=== PATIENT | male | born 1955 | race Caucasian/White ===

== ENCOUNTER 2022-08-06 08:28 | Outpatient (OUT) | payer MEDICARE, OTHER, SELFPAY ==
[2022-08-06 09:02] LABS: Basophils Percent Auto 0.5 % (0.2-2.0); Eosinophils Absolute Auto 0.2 10^3/uL (0.0-0.7); Eosinophils Percent Auto 5.2 % (0.9-7.0); Hematocrit 39.7 % (42.0-54.0); Hemoglobin 13.1 g/dL (14.0-18.0); Immature Granulocytes Abs Auto 0.01 10^3/uL (0.00-0.03); Immature Granulocytes Pct Auto 0.2 % (0.0-0.5); Lymphocytes Absolute Auto 1.2 10^3/uL (1.2-3.8); Lymphocytes Percent Auto 29.1 % (20.5-60.0); Mean Corpuscular Volume 87.8 fL (80.0-94.0); Mean Platelet Volume 9.8 fL (9.5-13.5); Monocytes Absolute Auto 0.5 10^3/uL (0.3-0.8); Monocytes Percent Auto 11.7 % (1.7-12.0); Neutrophils Absolute Auto 2.3 10^3/uL (1.4-6.5); Neutrophils Percent Auto 53.3 % (43.0-75.0); Platelet Count 194 10^3/uL (150-450); Red Blood Count 4.52 10^6/uL (4.70-6.10); Red Cell Distribution Width 12.9 % (11.0-15.0); White Blood Count 4.3 10^3/uL (4.0-11.0)
[2022-08-06 10:17] LABS: Alanine Aminotransferase 23 U/L (16-63); Albumin Globulin Ratio 1.1; Albumin Level 3.7 g/dL (3.4-5.0); Alkaline Phosphatase 94 U/L (46-116); Anion Gap 10.4; Aspartate Amino Transferase 22 U/L (15-37); BUN Creatinine Ratio 16.9; Bilirubin Total 0.5 mg/dL (0.2-1.0); Calcium 8.8 mg/dL (8.5-10.1); Chloride 106 mmol/L (98-107); Estimated GFR (African America >60 (>=60); Estimated GFR (Non-African Ame 55 (>=60); Globulin 3.5 g/dL; Glucose 102 mg/dL (74-106); Potassium 4.4 mmol/L (3.5-5.1); Sodium 142 mmol/L (136-145); Total Protein 7.2 g/dL (6.4-8.2)
[2022-08-06 10:24] LABS: Chol HDL Ratio 2.9; Cholesterol 192 mg/dL (<=200); HDL Cholesterol 67 mg/dL (40-60); Thyroid Stimulating Hormone 4.943 uIU/mL (0.358-3.740); Triglycerides 71 mg/dL (<=150); VLDL CHOLESTEROL 14.2 mg/dL
[2022-08-06 10:46] LABS: Prostate Specific Antigen Dx 2.43 ng/mL (<=4.00)
== END 2022-08-06 08:29 | disposition home or self-care (01) ==
LOC: LAB 08:34
PROVIDERS: PCP Family Medicine; Visit Provider Family Medicine
DX: E03.9 Hypothyroidism, unspecified (principal); E78.5 Hyperlipidemia, unspecified; N40.0 Benign prostatic hyperplasia without lower urinary tract symptoms
CPT/HCPCS: 36415; 80053; 80061; 84153; 84436; 84443; 85025

== ENCOUNTER 2023-08-05 09:17 | Outpatient (OUT) | payer MEDICARE, OTHER, SELFPAY ==
[2023-08-05 09:43] LABS: Basophils Percent Auto 0.7 % (0.2-2.0); Eosinophils Absolute Auto 0.2 10^3/uL (0.0-0.7); Eosinophils Percent Auto 3.6 % (0.9-7.0); Hematocrit 41.7 % (42.0-54.0); Hemoglobin 13.1 g/dL (14.0-18.0); Lymphocytes Absolute Auto 1.2 10^3/uL (1.2-3.8); Mean Corpuscular HGB Conc 31.4 g/dL (29.9-35.2); Mean Corpuscular Hemoglobin 28.1 pg (25.9-34.0); Mean Corpuscular Volume 89.5 fL (80.0-94.0); Mean Platelet Volume 9.8 fL (9.5-13.5); Monocytes Absolute Auto 0.5 10^3/uL (0.3-0.8); Monocytes Percent Auto 11.3 % (1.7-12.0); Neutrophils Absolute Auto 2.3 10^3/uL (1.4-6.5); Neutrophils Percent Auto 55.4 % (43.0-75.0); Platelet Count 200 10^3/uL (150-450); Red Blood Count 4.66 10^6/uL (4.70-6.10); White Blood Count 4.2 10^3/uL (4.0-11.0)
[2023-08-05 10:48] LABS: Alanine Aminotransferase 30 U/L (16-63); Albumin Level 3.6 g/dL (3.4-5.0); Alkaline Phosphatase 91 U/L (46-116); Anion Gap 11.4; Aspartate Amino Transferase 25 U/L (15-37); BUN Creatinine Ratio 18.9; Bilirubin Total 0.6 mg/dL (0.2-1.0); Calcium 8.3 mg/dL (8.5-10.1); Chloride 106 mmol/L (98-107); Chol HDL Ratio 2.9; Cholesterol 212 mg/dL (<=200); Estimated GFR (African America >60 (>=60); Estimated GFR (Non-African Ame 59 (>=60); Globulin 3.5 g/dL; Glucose 101 mg/dL (74-106); HDL Cholesterol 74 mg/dL (40-60); Potassium 4.4 mmol/L (3.5-5.1); Prostate Specific Antigen Scrn 2.64 ng/mL (<=4.00); Sodium 141 mmol/L (136-145); Thyroid Stimulating Hormone 4.759 uIU/mL (0.358-3.740); Total Protein 7.1 g/dL (6.4-8.2); Triglycerides 61 mg/dL (<=150); VLDL CHOLESTEROL 12.2 mg/dL
== END 2023-08-05 09:18 | disposition home or self-care (01) ==
PROVIDERS: PCP Family Medicine; Visit Provider Family Medicine
DX: E03.9 Hypothyroidism, unspecified (principal); E78.00 Pure hypercholesterolemia, unspecified; Z12.5 Encounter for screening for malignant neoplasm of prostate
CPT/HCPCS: 36415; 80053; 80061; 84439; 84443; 85025; G0103

== ENCOUNTER 2023-11-05 09:19 | Outpatient (OUT) | payer MEDICARE, OTHER, SELFPAY ==
--- OUTSIDE RECORDS SUMMARY | 2023-11-05 09:40 | XMS_ITS | CCD ---
Author Organization [facility] Care Team Providers Care Demand Planning Manager Name Role Phone Unavailable Primary Care Provider UnavailAreli Arteaga Unavailable KENNETH, DR CHOWDHURY Attending Unavailable GLYNDON, DR CHOWDHURY Consulting Unavailable GLYNDON, DR CHOWDHURY Primary Care Unavailable GLYNDON, DR CHOWDHURY Admitting Unavailable TASHA LANCASTER Primary Care Physician [phone] Jesse COVARRUBIAS Attending Unavailable Jesse COVARRUBIAS Attending Unavailable PRICILLA ABDULLAHI Attending Unavailable PRICILLA ABDULLAHI Referring Unavailable PRICILLA ABDULLAHI Attending Unavailable TASHA LANCASTER Referring Unavailable PRICILLA ABDULLAHI Attending Unavailable PRICILLA ABDULLAHI Referring Unavailable PRICILLA ABDULLAHI Attending Unavailable Jesse COVARRUBIAS Admitting Unavailable Jesse COVARRUBIAS Attending Unavailable Jesse COVARRUBIAS Referring Unavailable Allergies Allergy Classification Reported Allergen(s) Allergy Type Date of Onset Reaction(s) Facility Bumetanide (1 source) Bumetanide Drug Allergy 08-05-19 [facility] Furosemide (1 source) Furosemide Drug Allergy 08-05-19 [facility] Quinolones (antibiotic) (1 source) levoFLOXacin Drug Allergy 08-05-19 [facility] Spironolactone (1 source) Spironolactone Drug Allergy 08-05-19 [facility] (5 sources) Triamterene Drug Allergy 12-19-19 [facility] Work Phone: (1 source) Furosemide Drug Allergy Unknown [facility] Other (1 source) Bumetanide Drug Allergy 09-08-19 [facility] (1 source) Furosemide Drug Allergy 09-08-19 [facility] (1 source) Spironolactone Drug Allergy 09-08-19 [facility] (10 sources) hydroCHLOROthiazide / Triamterene; Translations: [hydrochlorothiazide-t riamterene] Drug Allergy Lethargy (finding) [facility] Medications Current Medications Medication Drug Class(es) Dates Sig (Normalized) Sig (Original) acetaminophen 325 mg / HYDROcodone bitartrate 5 mg oral tablet (3 sources) Opioid Agonist Start: 01-08-2023 take 1 tablet by mouth every six hours as needed for pain, then take 5 tablets by mouth every hour as needed for pain Blachly 325 mg-5 mg oral tablet 1 tab(s), Oral, q6hr as needed for pain, 5 tab(s), Refill(s) 0, Take 1 hour prior to procedure., [id number], 185, cm, 01/08/23 8:46:00 EST, Height/Length Dosing, 89.5, kg, 01/08/23 8:46:00 EST, Weight Dosing Start Date: 01/08/23 Status: Ordered Aspirin (16 sources) Platelet Aggregation Inhibitor, Nonsteroidal Anti-inflammatory Drug Start: 12-22-2022 aspirin Refills(s) 0 Start Date: 12/22/22 Status: Ordered Start: 09-08-2019 take 1 tablet by benigno th once daily Aspirin (Aspir-81) 81 mg Tablet,Delayed Release (Dr/Ec) Active 81 MG PO Daily September 08, 2019 12:00am take 1 tablet by benigno th once daily Aspirin 81 81 MG 1 tablet Orally Once a day Active aspirin 81 MG Ch ew Tab take 81 mg by mouth daily.. 0 Active ciprofloxacin 500 mg oral tablet (4 sources) Quinolone Antimicrobial Start: 01-08-2023 End: 01-11-2023 take 1 tablet by mouth twice daily Cipro 500 mg Tab 500 mg = 1 tab(s), Oral, BID, Start the day prior to procedure., X 3 day(s), # 6 tab(s), Refills(s) 0, Pharmacy: [id number], 185, cm, 01/08/23 8:46:00 EST, Height/Length Dosing, 89.5, kg, 01/08/23 8:46:00 EST, Weight Dosing Start Date: 01/08/23 Stop Date: 01/11/23 Status: Ordered Start: 12-23-2022 Cipro 500 mg T ab See Instructions, Take 1 tab day prior to procedure and 1 tab day of procdure - afterwards, # 2 tab(s), Refills(s) 0, Pharmacy: [id number], 185, cm, 12/22/22 13:39:00 EST, Height/Length Dosing, 89.5, kg, 12/22/22 13:39:00 EST, Weight Dosing Start Date: 12/23/22 Status: Ordered diazePAM 10 mg oral tablet (3 sources) Benzodiazepine Start: 01-08-2023 Valium 10 mg Tab 10 mg = 1 tab(s), Oral, Once, Take 30 minutes prior to procedure, # 1 tab(s), Refills(s) 0, Pharmacy: [id number], 185, cm, 01/08/23 8:46:00 EST, Height/Length Dosing, 89.5, kg, 01/08/23 8:46:00 EST, Weight Dosing Start Date: 01/08/23 Status: Ordered hydroCHLOROthiazide 12.5 mg oral tablet (5 sources) Thiazide Diuretic Start: 03-31-2018 take 1 tablet by mouth once daily hydroCHLOROthiazide 12.5 MG tablet Indications: Meniere's disease of left ear Take 1 tablet by mouth daily. 90 tablet 3 03/31/2018 Active Start: 03-21-2018 End: 03-31-2018 take 1 tablet by mouth once daily hydroCHLOROthiazide 12.5 MG tablet Indications: Meniere's disease of left ear Take 1 tablet by mouth daily. 30 tablet 0 03/21/2018 03/31/2018 Discontinued Start: 05-11-2017 End: 03-21-2018 take 1 tablet by mouth once daily hydroCHLOROthiazide 12.5 MG tablet Indications: Meniere's disease of left ear Take 1 tablet by mouth daily. 90 tablet 3 05/11/2017 03/21/2018 Discontinued levothyroxine sodium 0.05 mg oral tablet (16 sources) l-Thyroxine Start: 12-16-2022 Synthroid 50 m cg Tab 90 tab(s), 0 Refill(s), Refills(s) 0 Start Date: 12/16/22 Status: Ordered Start: 09-08-2019 take 1 tablet by benigno th once daily Levothyroxine (Synthroid) 50 mcg Tablet Active 50 MCG PO Daily September 08, 2019 12:00am take 1 tablet by benigno th once daily in the morning Levothyroxine Sodium 50 MCG 1 tablet in the morning on an empty stomach Orally Once a day Active levothyroxine 50 MCG Tab take 50 mcg by mouth daily.. 0 Active magnesium oxide 250 mg oral tablet (9 sources) Start: 12-22-2022 take 1 mg by mouth once daily magnesium oxide 250 mg oral tablet mg tab(s), Oral, Daily, Refills(s) 0 Start Date: 12/22/22 Status: Ordered Medrol Dose Pack as directed (1 source) Start: 11-05-2020 Medrol Dose Pa ck as directed as directed orally as directed Oct, Active naproxen sodium 220 mg oral capsule (2 sources) Nonsteroidal Anti-inflammatory Drug Start: 08-04-2023 take 1 capsule by mouth every twelve hours at mealtime as needed Naproxen Sodium (Aleve) 220 mg capsule Active 220 MG PO Every 12 hours August 04, 2023 12:00am FreeTextSi capsule with food or milk as needed Orally every 12 hrs; Note: Source Status: Taking; Provider: Raffaele Cordova ( ) take 1 capsule by mouth every tw elve hours Aleve 220 MG 1 capsule with food or milk as needed Orally every 12 hrs Active oxybutynin chloride 5 mg oral tablet (3 sources) Cholinergic Muscarinic Antagonist Start: 01-08-2023 take 1 tablet by mouth twice daily as needed oxybutynin 5 mg Tab 5 mg = 1 tab(s), Oral, BID, PRN for urinary discomfort, # 60 tab(s), Refills(s) 0, Pharmacy: [id number], 185, cm, 01/08/23 8:46:00 EST, Height/Length Dosing, 89.5, kg, 01/08/23 8:46:00 EST, Weight Dosing Start Date: 01/08/23 Status: Ordered rosuvastatin calcium 5 mg oral tablet (16 sources) HMG-CoA Reductase Inhibitor Start: 09-08-2019 rosuvastatin 5 mg Tab 90 tab(s), 0 Refill(s), Refills(s) 0 Start Date: 12/16/22 Status: Ordered [place] (1 source) [place] Act kathe [place] (5 sources) Start: 08-04-2023 take 160 mg by mouth twice daily [place] Active 160 MG PO Twice daily August 04, 2023 12:00am give with meal/snack Start: 12-22-2022 saw palmetto O ral, Refill(s) 0 Start Date: 12/22/22 Status: Ordered tamsulosin hydrochloride 0.4 mg oral capsule (10 sources) alpha-Adrenergic Karin Start: 08-04-2023 take 1 capsule by mouth once daily Tamsulosin Active 1 CAP PO Daily August 04, 2023 12:00am FreeTextSi capsule Orally Once a day; Note: Source Status: Taking; Provider: Raffaele Cordova ( ) Start: 12-16-2022 tamsulosin 0.4 mg Cap 90 cap(s), 0 Refill(s), Refills(s) 0 Start Date: 12/16/22 Status: Ordered take 1 capsule by [facility] every twenty-four hours Flomax 0.4 MG 1 capsule Orally Once a day Active Turmeric extract (10 sources) Start: 08-04-2023 Turmeric Activ e MG PO August 04, 2023 12:00am Start: 12-22-2022 Turmeric Oral, Daily, Refill(s) 0 Start Date: 12/22/22 Status: Ordered Vitamin D3 (9 sources) Start: 12-22-2022 Vitamin D3 Ref ills(s) 0 Start Date: 12/22/22 Status: Ordered Completed/Discontinued Medications Medication Drug Class(es) Dates Sig (Normalized) Sig (Original) cholecalciferol 0.025 mg oral capsule (7 sources) Vitamin D Start: 08-04-2023 End: 08-05-2023 take 25 ug by mouth once daily Cholecalciferol (Vitamin D3) Discontinued 25 MCG PO Daily August 04, 2023 12:00am August 05, 2023 8:35am take 1 tablet by benigno every twenty-four hours Vitamin D 25 MCG (1000 UT) 1 tablet Oral ly Once a day Active Cholecalciferol (VITAMIN D) 2000 UNITS Tab take by mouth.. 0 Active Problems Active Problems Problem Classification Problem Date Documented Date Episodic/Chronic Cardiac dysrhythmias (11 sources) Atrial fibrillation; Translations: [Unspecified atrial fibrillation] 12-22-2022 Chronic Cardiac dysrhythmias (1 source) Sinus bradycardia; Translations: [Bradycardia, unspecified] 09-09-2019 Episodic Conditions associated with dizziness or vertigo (16 sources) Meniere's disease; Translations: [Meniere's disease of left ear] Onset: 12-24-2015 12-24-2015 Chronic Disorders of lipid metabolism (12 sources) Hypercholesterolemia; Translations: [Pure hypercholesterolemia, unspecified] 12-16-2022 Chronic Essential hypertension (1 source) Essential (primary) hypertension; Translations: [ESSENTIAL PRIMARY HYPERTENSION] Onset: 08-15-2021 Chronic Hyperplasia of prostate (14 sources) Benign prostatic hyperplasia without lower urinary tract symptoms; Translations: [Benign prostatic hypertrophy with outflow obstruction] Onset: 08-15-2021 Chronic Osteoarthritis (13 sources) Osteoarthritis of joint of left hand; Translations: [Primary osteoarthritis, left hand] Onset: 12-17-2020 Resolved: 12-17-2020 Chronic Other diseases of kidney and ureters (1 source) Urinary tract obstruction; Translations: [Other obstructive and reflux uropathy] Onset: 02-11-2023 Episodic Other ear and sense organ disorders (5 sources) Asymmetrical hearing loss; Translations: [Asymmetrical hearing loss of left ear] Onset: 12-24-2015 12-24-2015 Chronic Other ear and sense organ disorders (9 sources) Deafness of left ear 12-16-2022 Chronic Other screening for suspected conditions (not mental disorders or infectious disease) (7 sources) Encounter for screening for malignant neoplasm of prostate; Translations: [Screening for malignant neoplasm done] Onset: 12-22-2022 Episodic Thyroid disorders (15 sources) Hypothyroidism, unspecified; Translations: [Hypothyroidism] Onset: 08-12-2021 Chronic Unclassified (18 sources) Patient encounter status 12-22-2022 Past or Other Problems Problem Classification Problem Date Documented Da te Episodic/Chronic Other connective tissue disease (1 source) Dupuytren's contracture; Translations: [Palmar fascial fibromatosis [Dupuytren]] Episodic Other connective tissue disease (1 source) Dupuytren's disease of palm; Translations: [Palmar fascial fibromatosis [Dupuytren]] Episodic Other connective tissue disease (1 source) Palmar fascial fibromatosis [Dupuytren] Onset: 12-17-2020 Resolved: 12-17-2020 Episodic Results Test Name Value Interpretation Reference Range Facility Ambulatory Visit Summaryon 0 02-16-2023 Ambulatory Visit Summary FLORI WALLER :1955 Visit Date:02/16/2023 Ambulatory Visit Instructions Your Diagnosis BPH with obstruction/lower urinary tract symptoms Prostate cancer screening Tests Performed Urnls Dip Stick Auto w/o Microscopy POC [id number] Your Care Team Attending Physician - PRICILLA ABDULLAHI PA-C Primary Care Physician - TASHA LANCASTER MD Referring Physician - PRICILLA ABDULLAHI PA-C This Is Your Medications List Contact prescribing physician if questions or concerns Turmeric aspirin cholecalciferol (Vitamin D3) levothyroxine (Synthroid 50 mcg Tab) magnesium oxide (magnesium oxide 250 mg oral tablet) rosuvastatin (rosuvastatin 5 mg Tab) tamsulosin (tamsulosin 0.4 mg Cap) [Image Removed: STOP]Stop taking these medications acetaminophen-hydrocodon e (Blachly 325 mg-5 mg oral tablet) ciprofloxacin (Cipro 500 mg Tab) diazepam (Valium 10 mg Tab) oxybutynin (oxybutynin 5 mg Tab) saw amara Procedures Performed Cystoscopy (01/08/2023), Arthroscopy of knee, Arthroscopy of shoulder, Colonoscopy, Tonsillectomy, TRUS - Transrectal ultrasonography. Discharge Vitals Heart Rate (Peripheral) 82 Blood Pressure 118/78 Height 185 cm Height 73 in Weight 89.5 kg Weight 196.9 lb BMI 26.15 What to do next Scheduled Follow-Up Appointments Wednesday 2:00 PM EST With: PRICILLA ABDULLAHI PA-C Where: [facility] Patient Educationon 02-16-19 Patient Education Urology Benign Prostatic Hyperplasia Benign prostatic hyperplasia (BPH) is an enlarged prostate gland that is caused by the normal aging process. The prostate may get bigger as a man gets older. The condition is not caused by cancer. The prostate is a walnut-sized gland that is involved in the production of semen. It is located in front of the rectum and below the bladder. The bladder stores urine. The urethra carries stored urine out of the body. An enlarged prostate can press on the urethra. This can make it harder to pass urine. The buildup of urine in the bladder can cause infection. Back pressure and infection may progress to bladder damage and kidney (renal) failure. What are the causes? This condition is part of the normal aging process. However, not all men develop problems from this condition. If the prostate enlarges away from the urethra, urine flow will not be blocked. If it enlarges toward the urethra and compresses it, there will be problems passing urine. What increases the risk? This condition is more likely to develop in men older than 50 years. What are the signs or symptoms? Symptoms of this condition include: ? Getting up often during the night to urinate. ? Needing to urinate frequently during the day. ? Difficulty starting urine flow. ? Decrease in size and strength of your urine stream. ? Leaking (dribbling) after urinating. ? Inability to pass urine. This needs immediate treatment. ? Inability to completely empty your bladder. ? Pain when you pass urine. This is more common if there is also an infection. ? Urinary tract infection (UTI). How is this diagnosed? This condition is diagnosed based on your medical history, a physical exam, and your symptoms. Tests will also be done, such as: ? A post-void bladder scan. This measures any amount of urine that may remain in your bladder after you finish urinating. ? A digital rectal exam. In a rectal exam, your health care provider checks your prostate by putting a lubricated, gloved finger into your rectum to feel the back of your prostate gland. This exam detects the size of your gland and any abnormal lumps or growths. ? An exam of your urine (urinalysis). ? A prostate specific antigen (PSA) screening. This is a blood test used to screen for prostate cancer. ? An ultrasound. This test uses sound waves to electronically produce a picture of your prostate gland. Your health care provider may refer you to a specialist in kidney and prostate diseases (urologist). How is this treated? Once symptoms begin, your health care provider will monitor your condition (active surveillance or watchful waiting). Treatment for this condition will depend on the severity of your condition. Treatment may include: ? Observation and yearly exams. This may be the only treatment needed if your condition and symptoms are mild. ? Medicines to relieve your symptoms, including: ? Medicines to shrink the prostate. ? Medicines to relax the muscle of the prostate. ? Surgery in severe cases. Surgery may include: ? Prostatectomy. In this procedure, the prostate tissue is removed completely through an open incision or with a laparoscope or robotics. ? Transurethral resection of the prostate (TURP). In this procedure, a tool is inserted through the opening at the tip of the penis (urethra). It is used to cut away tissue of the inner core of the prostate. The pieces are removed through the same opening of the penis. This removes the blockage. ? Transurethral incision (TUIP). In this procedure, small cuts are made in the prostate. This lessens the prostate's pressure on the urethra. ? Transurethral microwave thermotherapy (TUMT). This procedure uses microwaves to create heat. The heat destroys and removes a small amount of prostate tissue. ? Transurethral needle ablation (TUNA). This procedure uses radio frequencies to destroy and remove a small amount of prostate tissue. ? Interstitial laser coagulation (ILC). This procedure uses a laser to destroy and remove a small amount of prostate tissue. ? Transurethral electrovaporization (TUVP). This procedure uses electrodes to destroy and remove a small amount of prostate tissue. ? Prostatic urethral lift. This procedure inserts an implant to push the lobes of the prostate away from the urethra. Follow these instructions at home: ? Take dbof-aqt-pptfkvu and prescription medicines only as told by your health care provider. ? Monitor your symptoms for any changes. Contact your health care provider with any changes. ? Avoid drinking large amounts of liquid before going to bed or out in public. ? Avoid or reduce how much caffeine or alcohol you drink. ? Give yourself time when you urinate. ? Keep all follow-up visits. This is important. Contact a health care provider if: ? You have unexplained back pain. ? Your symptoms do not get better with treatment. ? You develop side effects from the medicine (more content not included)... Normal [facility] Urology Office/Clinic Noteon 02-16-2023 Urology Office/Clinic Note Chief Complaint S/p to Cysto HPI Staff S/p [place] [facility]- Previous DX; BPH, Taking Flomax 0.4 mg qd PVR (27) Prostate cancer screening PSA 07/25/20 - 2.02 08/12/21 - 2.00 08/06/22 - 2.43 ([place] was removed on 02/12/23 in our office) [place] was plugged up after a couple hours, forced his urination around the [place] Oxybutynin- BID He took one this morning, he doesn't know if he should still take it because he is not having the urinary distress Flomax 0.4 mg qd still taking IPSS 18 CAROL 22 PVR 71 Dysuria: denies Incomplete bladder emptying: denies Hematuria: had blood since procedure, it has a pinkish tint for the last couple days Urgency: denies Nocturia: (cuts fluids off at 6p.m) 2-3x nightly still getting up Stream: start stop stream, denies hesitation Leaking: denies Post void dripping: sometimes Wearing pads/ Depends: wears pad still a pinkish tinge to it today, it has has let up a since procedure Urge incontinence: denies Stress incontinence: denies Incontinence without Sensory Awareness: denies Abdominal pain: denies Flank pain: denies Sexual complaints: denies History of Present Illness staff HPI reviewed and agree. Review of Systems PHQ Score Initial Depression Screen Score: 0 SCORE no fever, chills, malaise, myalgia. no rash/lesions. no chest pain, palpitations, or SOB. no abdominal pain, nausea, vomiting. no unilateral calf swelling, redness, pain Physical Exam Vitals & Measurements HR: 82(Peripheral) BP: 118/78 HT: 73 in HT: 185 cm WT: 89.5 kg WT: 196.9 lb BMI: 26.15 General: nontoxic, NAD Mouth: moist mucosa Lungs: normal respiratory effort Cardio: regular rate, good distal perfusion Abdomen: nondistended, no suprapubic distention or tenderness, no CVA tenderness Neurologic: Grossly normal Skin: No rashes or suspicious lesions Assessment/Plan Dr. Covarrubias pt CAROL 22. 1. BPH with obstruction/lower urinary tract symptoms (N40.1: Benign prostatic hyperplasia with lower urinary tract symptoms) S/p Cysto/TRUS 01/08/23 - prostate volume 17.4cc. S/p Urolift 02/11/23. Catheter removal IO 02/12/23. Reports he had trouble with the [place] emptying him well. Was taking Oxybutynin. Advised pt he no longer needs to take this. IPSS 18 (18). [place] he never emptied prior to procedure. Was getting up 3-4x/night, which has improved since Urolift. PVR today 71cc. Taking Tamsulosin 0.4mg qd per PCP. Also takes saw palmetto. UA today shows large blood and small leuks. Has had minimal gross hematuria. Advised pt this is normal PO. States is mostly satisfied with Urolift results so far. Discussed postop details and possible next steps. -D/c Oxybutynin -D/c saw palmetto in the next few weeks as long as sx continue to improve -Cont Tamsulosin, will discuss weaning off of this at next appt 2. Prostate cancer screening (Z12.5: Encounter for screening for malignant neoplasm of prostate) PSA 09/21/19 - 1.55 07/25/20 - 2.02 08/12/21 - 2.00 08/06/22 - 2.43 -PCP monitors. Follow-up With When Contact Information BRADLY THOMPSON, PRICILLA Nix, URL [address] [place] [place] [address] [id number] Additional Instructions: 6 wks Patient Education Benign Prostatic Hyperplasia Documentation recorded by the consuelo Hickman accurately reflects the services(s) I performed and decisions made by me. Authenticated by Pricilla Abdullahi PA-C on 02/16/2023 16:27:50. IDayami, personally scribed for Pricilla Abdullahi PA-C on 02/16/2023 15:44:18. . Problem List/Past Medical History Ongoing A-fib Arthritis BPH with obstruction/lower urinary tract symptoms Deafness in left ear Hypercholesterolemia Hypothyroid Menieres disease Prostate cancer screening Historical Screening PSA (prostate specific antigen) Procedure/Surgical History Cystoscopy (01/08/2023), Arthroscopy of knee, Arthroscopy of shoulder, Colonoscopy, Tonsillectomy, TRUS - Transrectal ultrasonography. Medications aspirin Cipro 500 mg Tab, See Instructions, Not taking magnesium oxide 250 mg oral tablet, Oral, Daily Blachly 325 mg-5 mg oral tablet, 1 tab(s), Oral, q6hr, PRN, Not taking oxybutynin 5 mg Tab, 5 mg= 1 tab(s), Oral, BID, PRN rosuvastatin 5 mg Tab saw palmetto, Oral Synthroid 50 mcg Tab tamsulosin 0.4 mg Cap Turmeric, Oral, Daily Valium 10 mg Tab, 10 mg= 1 tab(s), Oral, Once, Not taking Vitamin D3 Allergies Dyazide (Lethargy) Social History Tobacco Never (less than 100 in lifetime) Tobacco Use:. Never Smokeless Tobacco Use:. Household tobacco concerns: No. Yes, 02/16/2023 Family History Bladder cancer: Father. Immunizations Vaccine Date Status SARS-CoV-2 (COVID-19) mRNA BNT-162b2 vax 05/22/2020 Recorded SARS-CoV-2 (COVID-19) mRNA BNT-162b2 vax 05/01/2020 Recorded Lab Results Ambulatory Point of Care Results Bilirubin Urine Dipstick: Negative (02/16/23 14:55:00) Blood Urin (more content not included)... [place] Comment on above: Result Comment: Elec tronically Signed By: PRICILLA ABDULLAHI PA-C\.br\Date and Time Signed: 02/16/23 16:27 EST\.br\Electronically Co-Signed By: Dayami Hickman\.br\Date and Time Co-Signed: 02/16/23 15:49 EST Consent for Procedure/Surger yon 02-11-2023 Consent for Procedure/Surgery [id number] FF [place] Consent for Treatmenton 01-16 Consent for Treatment [id number] F [place] Inpatient Patient Summaryon 02-11-2023 Inpatient Patient Summary [place] [id number] Clinical Summary Person Information Name: FLORI WALLER Age: 67 Years : 1955 Sex: Male PCP: TASHA LANCASTER MD Marital Status: Race: White Ethnicity: Non- or Language: [place]orese Visit Id: Visit Reason: BPH WITH LUTS Speciality: Acuity: Enc Type: Outpatient Med Service: Surgery Arrival: 02/11/2023 08:42:26 Discharge: Dispo Type: Address: [address] [facility] [id number] Provider Notes: Diagnosis: Other obstructive and reflux uropathy Problems Active Prostate cancer screening BPH with obstruction/lower urinary tract symptoms Hypothyroid A-fib Arthritis Deafness in left ear Menieres disease Hypercholesterolemia Smoking Status: Functional Status: Sensory Deficits: History of Falls: Mobility Assistance Prior to Admission: ADLs: Current Level of Assistance for Self-Care/Mobility: Cognitive Status: Allergies Dyazide (Lethargy) Laboratory or Other Results This Visit (last charted value for your 02/11/2023 visit) No Laboratory or Other Results This Visit Measurements: Height: 185 cm Weight: Blood Pressure: Not Valued / Not Valued BMI: Procedures No Procedures Documented Immunizations No Immunizations Documented This Visit Final Med List: acetaminophen-hydrocodon e (Blachly 325 mg-5 mg oral tablet) 1 Tablets By Mouth every 6 hours as needed as needed for pain. Take 1 hour prior to procedure.. Refills: 0. aspirin cholecalciferol (Vitamin D3) ciprofloxacin (Cipro 500 mg Tab) Take 1 tab day prior to procedure and 1 tab day of procdure - afterwards. Refills: 0. diazepam (Valium 10 mg Tab) 1 Tablets By Mouth Once. Take 30 minutes prior to procedure. Refills: 0. levothyroxine (Synthroid 50 mcg Tab) 90 tab(s), 0 Refill(s). magnesium oxide (magnesium oxide 250 mg oral tablet) By Mouth every day. oxybutynin (oxybutynin 5 mg Tab) 1 Tablets By Mouth 2 times a day as needed for urinary discomfort. Refills: 0. rosuvastatin (rosuvastatin 5 mg Tab) 90 tab(s), 0 Refill(s). saw palmetto By Mouth. tamsulosin (tamsulosin 0.4 mg Cap) 90 cap(s), 0 Refill(s). Turmeric By Mouth every day. Care Team Members: Attending Physician: Jesse COVARRUBIAS MD Consulting Physician: Referring Physician: Jesse COVARRUBIAS MD Follow up: With: Address: When: Jesse SATISH Jeremias HOYOS, [address], [facility] [address] [place] [address] Business (1) Within 1 to 2 weeks Comments: Call for followup appointment to remove the catheter. Stay on your Flomax (tamsulosin) for now. You may be seeing one of our nurse practitioners or physician assistants. Patient Education Information: Lue - Urolift Post-Op Instructions (Custom) [facility] IntraOperative Documentson 1 04-14-2022 IntraOperative Documents [id number] FF [facility] Main OR Intraoperative Recor don 02-11-2023 Main OR Intraoperative Record IntraOp Document Type FTURO Summary Primary Physician: Jesse COVARRUBIAS MD Finalized Date/Time: 02/11/23 09:48:09 Pt. Name: FLORI WALLER/Sex: 1955 Male Med Rec #: [id number] Physician: Jesse COVARRUBIAS MD Financial #: [id number] Pt. Type: O Room/Bed: / Admit/Disch: 02/11/23 08:42:26 - Institution: Case Times FTURO Entry 1 Patient Times In Room 02/11/23 09:07:00 Out Room 02/11/23 09:25:00 Procedure Times Start 02/11/23 09:10:00 Stop 02/11/23 09:21:00 Anesthesia Times Last Modified By: Aury GODINEZ, Renetta Valdez 02/11/23 09:21:24 General Comments: 18FR COUDE DE LA PAZ CATHETER TO LEG BAG INSERTED BY DR.COOK Nilton ULLOA,RN Case Attendance FTURO Entry 1 Entry 2 Entry 3 Case Attendee Jesse COVARRUBIAS MD, RN, Edison Bynum Role Performed Surgeon - Primary Mushroom Picker - Primary Scrub - Primary Time In 02/11/23 09:07:00 02/11/23 09:07:00 02/11/23 09:07:00 Time Out 02/11/23 09:25:00 02/11/23 09:25:00 02/11/23 09:25:00 Procedure CYSTOSCOPY LOCAL CYSTOSCOPY LOCAL CYSTOSCOPY LOCAL UROLIFT(.) UROLIFT(.) UROLIFT(.) Comments Last Modified By: Aury GODINEZ, Renetta Ulloa RN, Renetta Martinez RN 02/11/23 Gilda Valdez 02/11/23 Gilda P 02/11/23 09:21:28 09:21:28 09:21:28 Entry 4 Case Attendee Henrietta Ulloa CST Role Performed Scrub - Primary Time In 02/11/23 09:07:00 Time Out 02/11/23 09:25:00 Procedure CYSTOSCOPY LOCAL UROLIFT(.) Comments PRECEPTOR Last Modified By: Renetta Ulloa RN 02/11/23 09:21:28 Surgical Procedures FTURO Entry 1 Procedure Description Procedure CYSTOSCOPY LOCAL UROLIFT Modifiers . Surgeon Description CYSTOSCOPY LOCAL AND UROLIFT Primary Procedure Yes Primary Surgeon Jesse COVARRUBIAS MD Start 02/11/23 09:10:00 Stop 02/11/23 09:21:00 Anesthesia Type Local Surgical Service Urology Wound Class 2 - Clean-Contaminated Last Modified By: Renetta Ulloa RN 02/11/23 09:21:27 General Case Data FTURO Pre-Care Text: Classifies surgical wound, implements aseptic technique, initiates traffic control Entry 1 Case Information OR URO 1 FT Case Level None Wound Class 2 - Clean-Contaminated Specialty Urology Preop Diagnosis BPH WITH LUTS Postop Same As Preop Yes Postop Diagnosis BPH WITH LUTS Outcomes Met? Yes Last Modified By: Renetta Ulloa RN 02/11/23 08:49:25 Post-Care Text: The patient is free from signs and symptoms of infection EU IntraOp - FTURO Pre-Care Text: Implements protective measures prior to operative or invasive procedure, confirms identity before the operative or invasive procedure, verifies operative procedure, surgical site, and laterality Entry 1 EU Perioperative Protocols Procedure(s) CYSTOSCOPY LOCAL Patient Identity Birthday, ID Band UROLIFT(.) Verified (select at Check, Patient least 2): Participation Consents / H and P HandP, Surgery/Procedure Operative Site Present Verified Consent Marking Verified Surgical Site Yes Laterality Verified n/a Verified Procedure Verified Yes Correct Patient Yes Position Verified Availability Equipment, Implant, Time Out SATISH TIAN, Jesse Valdez, Verified (If Medication Participants Aury GODINEZ, Reentta Watt) Gilda Valdez, Edison Leong, Laila DOMÍNGUEZ, Henrietta Xiong Time Out Complete 02/11/23 09:08:00 Allergies Reviewed? Yes Allergies Reviewed Self/Patient With Body Position High Lithotomy Prep Area PENIS Prep Agents Betadine Solution Skin. Condition Unable to Visualize Description PARTIALLY CLOTHED Additional None Specimens Collected Vitals - EU Blood Pressure 151/86 Pulse 40 bpm Respirations 16 br/min SPO2 99 % IandO - EU Outcomes Met? Yes Last Modified By: Aury GODINEZ, Renetta Valdez 02/11/23 09:21:16 Post-Care Text: The patient is free from signs and symptoms of injury caused by extraneous objects Implant Log FTURO Pre-Care Text: Records devices implanted during the operative or invasive procedure Entry 1 Entry 2 Entry 3 Implant/Explant Implant Implant Implant Implant Identification Description UROLIFT 2 IMPLANT UROLIFT 2 IMPLANT UROLIFT 2 IMPLANT CARTRIDGE CARTRIDGE CARTRIDGE Serial Number Lot Number [id number] Medical Imaging Technologist NEOTRACT NEOTRACT NEOTRACT Catalog ?# [id number] UL2-C UL2-C Size Expiration Date 09/30/24 07/29/24 09/16/24 Usage Data Implant Site PROSTATE PROSTATE PROSTATE Quantity 1 1 4 Temperature Reconstitution Method Outcomes Met? Yes Yes Yes Last Modified By: Aury GODINEZ, Renetta Ulloa RN, Renetta Martinez RN 02/11/23 Gilda Valdez 02/11/23 Gilda Valdez 02/11/23 09:16:28 09:16:28 09:21:45 Post-Care Text: The patient is free from signs and symptoms of injury caused by extraneous objects Sign Out FTURO Entry 1 Before Patient Leaves OR Nurse verbally Yes Nurse verbally Yes confirms with the confirms with the team the name of team that the pro (more content not included)... [facility] Main OR Preoperative Recordo n 02-11-2023 Main OR Preoperative Record Holding Area Document Type FTURO Summary Primary Physician: Jesse COVARRUBIAS MD Finalized Date/Time: 02/11/23 08:52:30 Pt. Name: FLORI WALLER /Sex: 1955 Male Med Rec #: [id number] Physician: Jesse COVARRUBIAS MD Financial #: [id number] Pt. Type: O Room/Bed: / Admit/Disch: 02/11/23 08:42:26 - Institution: Case Times Holding FTURO Pre-Care Text: Verifies consent for planned procedure, identifies individual values and wishes concerning care, includes family members in perioperative teaching Secures patient's records' belongings, and valuables, maintains patient's dignity and privacy, and maintains patient confidentiality Entry 1 In Holding 02/11/23 08:47:00 Outcomes Met? Yes Last Modified By: Henrietta Childress RN 02/11/23 08:47:46 Post-Care Text: The patient participates in decisions affecting his or her perioperative plan of care The patient's right to privacy is maintained Surgery Checklist FTURO Entry 1 Patient Birthday, ID Band Procedure History and Physical, Identification: Check, Patient Verification: Surgical Consent, With Participation Patient NPO after Midnight: n/a Personal Items: Glasses, Jewelry Personal Items GLASSES; RING X 1; Limitations: UP AD MELANIE Comment: HEARING AIDE (LEFT EAR) Complaints of Pain: No Pain Comment: 0/10 Skin Integrity Dry, Warm Vitals - EU Blood Pressure 151/86 Pulse 40 bpm Respirations 16 br/min SPO2 99 % Additional None RN Reviewed Yes Specimens Collected Last Modified By: Henrietta Childress RN 02/11/23 08:52:26 Finalized By: Henrietta Childress RN Document Signatures Signed By: Henrietta Childress RN 02/11/23 08:52 [facility] Operative Reporton Operative Report Patient: EFRAIN WALLER Age: 67 years Sex: Male : 1955 Associated Diagnoses: None Author: Jesse COVARRUBIAS MD Procedure Operative Information Details: Date/ Time: 02/11/2023 09:27:00. Pre-Op Dx: BPH w/ LUTS - N40.1. Post-Op Dx: Same. Anesthesia Type: Local. Procedure: Cystoscopy with UroLift Prostatic Urethral Lift. Complications: None. Risks/Benefits/Informed Consent: Surgical risks, benefits, details of the procedure have been explained to the patient, Full informed consent has been obtained. Indications: This patient has bladder outlet obstructive symptoms refractory to medications, wishes to no longer take medications, He is strongly desirous to try the Urolift procedure. Intraoperative Information Prepped: Patient received 1 hour prior to procedure (10 mg diazepam, 5/325 mg of Blachly), Local Anesthesia (60cc 2% Xylocaine liquid inserted into bladder, 20cc Xylocaine 2% jelly inserted into urethra, Penile clamp applied for 20 min dwell prior to procedure with patient in sitting position). Procedure: A 20F cystoscope was inserted into the bladder, The cystoscopy bridge was replaced with a UroLift delivery device, The first treatment site was the patient's left side approximately 1.5 cm distal to the bladder neck, The distal tip of the delivery device was then angled laterally approximately 20 degrees at this position to compress the lateral lobe, The trigger was pulled, thereby deploying a needle containing the implant through the prostate, The needle was then retracted, allowing one end of the implant to be delivered to the capsular surface of the prostate, The implant was then tensioned to assure capsular seating and removal of slack monofilament, The device was then angled back toward midline and slowly advanced proximally (typically 3-4mm) until cystoscopic verification of the monofilament being centered in the delivery bay, The urethral end piece was then affixed to the monofilament thereby tailoring the size of the implant, Excess filament was then severed, The delivery device was then readvanced into the bladder, The delivery device was then replaced with cystoscope and bridge and the implant location and opening effect was confirmed cystoscopically, The same procedure was then repeated on the right side, Two additional implants were delivered just proximal to the veru montanum, again one on right and one on left side of the prostate, following the same technique, Cystoscopy then revealed a persistent area of obstruction, and two more implants were delivered in the mid prostate, A final cystoscopy was conducted first to inspect the location and state of each implant, And second, to confirm the presence of a continuous anterior channel was present through the prostatic urethra with irrigation flow turned off, The bladder was then filled with 150cc irrigation fluid to assist the patient in void trial after the procedure, All instruments were removed, The patient was then allowed to sit up. Specimens Removed: None. Devices Implanted: 6 Urolift devices. Postoperative Information Discharge: The patient tolerated the procedure well and was subsequently discharged home, Voiding trial in progress at the time of this dictation. . [facility] Comment on above: Result Comment: Elec tronically Signed By: Jesse COVARRUBIAS MD\.br\Date and Time Signed: 02/11/23 09:28 EST Outpatient Surgery Discharge Instructionon 02-11-2023 Outpatient Surgery Discharge Instruction [address] [address] Patient Discharge Instructions PERSON INFORMATION Name: FLORI WALLER Date of : 1955 Current Date: 02/11/2023 09:52:05 PHYSICIANS Admitting Physician: Jesse COVARRUBIAS MD Comment: Discharge Diagnosis: Other obstructive and reflux uropathy FLORI WALLER has been given the following list of follow-up instructions, prescriptions, and patient education materials: IF UNABLE TO CONTACT YOUR PHYSICIAN AND YOU FEEL IT IS AN EMERGENCY, GO TO THE NEAREST EMERGENCY ROOM OR CALL 911 Follow up: With: Address: When: Jesse COVARRUBIAS [address] [place] [address], [address], [address] [address] Business (1) Within 1 to 2 weeks Comments: Call for followup appointment to remove the catheter. Stay on your Flomax (tamsulosin) for now. You may be seeing one of our nurse practitioners or physician assistants. Comment: PATIENT EDUCATION INFORMATION Instructions: [facility] [place], [place] Post-Operative Instructions for UroLift After your procedure it is normal to have: Gross Hematuria (blood in the urine) You may even notice blood clots in your urine. A small amount of blood may apppear to be a lot of blood in your urine as it is diluted. Restarting your blood thinner, increased activity and heavy lifting could increase the amount of bleeding. The bleeding may be sporadic (off and on) over the next 2-3 weeks. Ensure you are hydrating to assist in flushing the blood to prevent voiding complications. In the event you are unable to void, please reach out to our office. If the office is closed, you will need to report to the local emergency room. Blood in your semen and stool may be present. The blood in your semen is not harmful to you or your partner. This will resolve with time. Frequency/urgency/burnin g with urination is very common. This is due to irritation from your procedure. These symptoms do not indicate that your procedure was unsuccessful or that there is an infection. Ensure you are hydrating! You may try AZO over the counter as needed for urinary discomfort. Pain/discomfort are normal as well. There has been a non-narcotic prescription sent to your pharmacy. You may alternate this prescription with over the counter Ibuprofen. Your pain and discomfort should improve within a few days. When do I need to call the office? We ask that you reach out to the office if you experience a temperature of 100.4 ? F or higher, excessive urinary bleeding, symptoms of infection, inability to urinate or uncontrolled pain. If the office is closed, you may need to present to the local emergency department. De La Paz catheter If you have a catheter and will remove it at home, you may do so the next day if urine is clear and no longer red/pink in color. If urine is red, wait until clear to remove the catheter. See attached instructions for removal. Postop UroLift Instructions ? Complete your antibiotic as instructed. ? Remain on all your urinary medication until follow up. ? Take your pain madications and AZO as needed. ? Resume any blood thinners 48 hour post procedure. ? Continue to hydrate! ? Minimize your activity for 72-96 hours post procedure. ? If you are prescribed Oxybutynin for bladder spasms, you may take this medication every 8 hours as needed. This medication may cause dry mouth/eyes and constipation. Taking an over the counter stool softener and drinking plenty of water will help with side effects. De La Paz Catheter Removal De La Paz Catheter I did not place one after your procedure today. When to Call Your Healthcare Provider (or to to your local emergency department) Call the healthcare provider right away if: ? You have a fever of 100.4 ?F (38?C) or higher, or as directed by your healthcare provider. ? You have questions about removing the catheter. ? The catheter does not come out with gentle pulling. ? You cannot urinate within 8 hours of removing the catheter. ? Your belly (abdomen) is painful or bloated ? You have burning pain with urination that lasts for 24 hours. ? You see a lot of blood in your urine. Light bleeding for 24 hours is normal. ? It feels like the bladder is not emptying. CHRISTIN Pike JACK W, have received the attached patient education materials/instructions and have verbalized understanding: May we do a follow up call? Yes No I was present when discharge instructions were given Patient Signature Date Clinican/Nurse Signature Date You may receive a survey from [employer] asking you to rate your care experience. Your feedback is important and will help us understand what we do well and how we can improve the qual (more content not included)... [facility] Patient Educationon 02-12-20 23 Patient Education [facility] [place], [place] Post-Operative Instructions for UroLift After your procedure it is normal to have: Gross Hematuria (blood in the urine) You may even notice blood clots in your urine. A small amount of blood may apppear to be a lot of blood in your urine as it is diluted. Restarting your blood thinner, increased activity and heavy lifting could increase the amount of bleeding. The bleeding may be sporadic (off and on) over the next 2-3 weeks. Ensure you are hydrating to assist in flushing the blood to prevent voiding complications. In the event you are unable to void, please reach out to our office. If the office is closed, you will need to report to the local emergency room. Blood in your semen and stool may be present. The blood in your semen is not harmful to you or your partner. This will resolve with time. Frequency/urgency/burnin g with urination is very common. This is due to irritation from your procedure. These symptoms do not indicate that your procedure was unsuccessful or that there is an infection. Ensure you are hydrating! You may try AZO over the counter as needed for urinary discomfort. Pain/discomfort are normal as well. There has been a non-narcotic prescription sent to your pharmacy. You may alternate this prescription with over the counter Ibuprofen. Your pain and discomfort should improve within a few days. When do I need to call the office? We ask that you reach out to the office if you experience a temperature of 100.4 ? F or higher, excessive urinary bleeding, symptoms of infection, inability to urinate or uncontrolled pain. If the office is closed, you may need to present to the local emergency department. De La Paz catheter If you have a catheter and will remove it at home, you may do so the next day if urine is clear and no longer red/pink in color. If urine is red, wait until clear to remove the catheter. See attached instructions for removal. Postop UroLift Instructions ? Complete your antibiotic as instructed. ? Remain on all your urinary medication until follow up. ? Take your pain madications and AZO as needed. ? Resume any blood thinners 48 hour post procedure. ? Continue to hydrate! ? Minimize your activity for 72-96 hours post procedure. ? If you are prescribed Oxybutynin for bladder spasms, you may take this medication every 8 hours as needed. This medication may cause dry mouth/eyes and constipation. Taking an over the counter stool softener and drinking plenty of water will help with side effects. De La Paz Catheter Removal De La Paz Catheter I did not place one after your procedure today. When to Call Your Healthcare Provider (or to to your local emergency department) Call the healthcare provider right away if: ? You have a fever of 100.4 ?F (38?C) or higher, or as directed by your healthcare provider. ? You have questions about removing the catheter. ? The catheter does not come out with gentle pulling. ? You cannot urinate within 8 hours of removing the catheter. ? Your belly (abdomen) is painful or bloated ? You have burning pain with urination that lasts for 24 hours. ? You see a lot of blood in your urine. Light bleeding for 24 hours is normal. ? It feels like the bladder is not emptying. [facility] Consent for Procedure/Surger yon 01-11-2023 Consent for Procedure/Surgery [id number] F [facility] Ambulatory Visit Summaryon 1 03-10-2022 Ambulatory Visit Summary FLORI WALLER :1955 Visit Date:01/08/2023 Ambulatory Visit Instructions Your Diagnosis BPH with obstruction/lower urinary tract symptoms Prostate cancer screening Your Care Team Attending Physician - SATISH TIAN, Jesse Valdez Primary Care Physician - TASHA LANCASTER MD This Is Your Medications List Contact prescribing physician if questions or concerns Turmeric aspirin cholecalciferol (Vitamin D3) ciprofloxacin (Cipro 500 mg Tab) levothyroxine (Synthroid 50 mcg Tab) magnesium oxide (magnesium oxide 250 mg oral tablet) rosuvastatin (rosuvastatin 5 mg Tab) mary maloney tamsulosin (tamsulosin 0.4 mg Cap) Procedures Performed Cystoscopy (01/08/2023), Arthroscopy of knee, Arthroscopy of shoulder, Colonoscopy, Tonsillectomy, TRUS - Transrectal ultrasonography. Discharge Vitals Temperature (Temporal Artery) 36.4 ?C Heart Rate (Peripheral) 78 Blood Pressure 124/82 Height 185 cm Height 73 in Weight 89.5 kg Weight 196.9 lb BMI 26.15 What to do next You Need to Schedule the Following Appointments Follow Up with SATISH TIAN, Jesse Valdez, URL When: Comments: Sched UroLift Where: [address] [place] [id number]- Medications What How Much When Instructions Unchanged aspirin Contact prescribing physician if questions or concerns Unchanged cholecalciferol (Vitamin D3) Contact prescribing physician if questions or concerns Unchanged ciprofloxacin (Cipro 500 mg Tab) See instructions Take 1 tab day prior to procedure and 1 tab day of procdure - afterwards Contact prescribing physician if questions or concerns Unchanged levothyroxine (Synthroid 50 mcg Tab) 90 tab(s), 0 Refill(s) Contact prescribing physician if questions or concerns Unchanged magnesium oxide (magnesium oxide 250 mg oral tablet) By Mouth Every day Contact prescribing physician if questions or concerns Unchanged rosuvastatin (rosuvastatin 5 mg Tab) 90 tab(s), 0 Refill(s) Contact prescribing physician if questions or concerns Unchanged saw palmetto By Mouth Contact prescribing physician if questions or concerns Unchanged tamsulosin (tamsulosin 0.4 mg Cap) 90 cap(s), 0 Refill(s) Contact prescribing physician if questions or concerns Unchanged Turmeric By Mouth Every day Contact prescribing physician if questions or concerns Medications and Immunizations Administered Given lidocaine Top 2% Gel w/Appl 11 mL, 11 mL, Topical. For: BPH with obstruction/lower urinary tract symptoms Allergies Dyazide (Lethargy) Problems Ongoing - Any problem that you are currently receiving treatment for. A-fib Arthritis BPH with obstruction/lower urinary tract symptoms Deafness in left ear Hypercholesterolemia Hypothyroid Menieres disease Prostate cancer screening Historical - Any problem that you are no longer receiving treatment for. Screening PSA (prostate specific antigen) Patient Survey You may receive a survey via text or e-mail asking about your office visit. Please share your experience with us by completing your survey. We appreciate your feedback and thank you for choosing us for your care. [facility] Consenton 01-08-2023 Consent [id number] [facility] Urology Office/Clinic Noteon 01-08-2023 Urology Office/Clinic Note Chief Complaint Cysto HPI Staff Pt here for Cysto/TRUS ABX TAKEN History of Present Illness Tests reviewed: none. I have reviewed the previous health record information and history for this patient from Pricilla Abdullahi PA-C. I have reviewed and verified the staff HPI to be accurate for this encounter. There have been no associated fever, chills, flank pain, or blood in the urine. Denies any urinary infections since last encounter. Review of Systems PHQ Score Initial Depression Screen Score: 0 SCORE ROS - Provider Constitutional: denies weight loss, denies hot flashes. Eyes: denies eye problems. Gastrointestinal: denies nausea, denies vomiting. Cardiovascular: denies chest pain or angina. Integumentary: no dryness Musculoskeletal: denies musculoskeletal symptoms. ENMT: denies otolaryngeal symptoms. Respiratory: no shortness of breath. Heme/Lymph: denies easy bleeding tendency, denies easy bruising tendency. Psychiatric: no confusion, no anxiety. Genitourinary: See HPI. Physical Exam Vitals & Measurements T: 36.4 ?C(Temporal Artery) HR: 78(Peripheral) BP: 124/82 HT: 73 in HT: 185 cm WT: 89.5 kg WT: 196.9 lb BMI: 26.15 General Appearance: alert, no distress, well nourished, well developed male. Procedure Operative Information Anesthesia Type: Local Procedure: Local Cystoscopy and Transrectal Ultrasound Complications: None Surgical risks, benefits, details of the procedure have been explained to the patient. Full informed consent has been obtained. Intraoperative Information Prepped: Patient is brought back to the endoscopy suite. Patient is placed in supine and the modified left lateral Buckner position. Patient prepped in the usual fashion with Betadine solution. 2% Xylocaine Jelly is placed per Urethra. After waiting several minutes, the Cystoscope is introduced. The Urethra is: Normal The Prostatic Urethra is: 3.cm long, lateral lobe obstruction, no median lobe essentially no protrusion of the prostate into the bladder lumen. The Bladder: Normal, no tumors, no stones, Trabeculated: Moderate (2) The Ureteral orifices: Show efflux of clear urine Removal: Cystoscope is removed. The patient tolerated it well. Volume: 17.4 Postoperative Information The patient tolerated the procedure well and was discharged home in satisfactory condition. Patient is discharged home with antibiotic coverage. Follow up arranged. Radiology Report Procedure: Transrectal Ultrasound of the Prostate Narrative: Ultrasound probe is introduced and performed in the longitudinal and transverse plains. The prostatic capsule and seminal vesicles appear to be within normal limits. The gland measures: 39.7 MM Length, 41.4 MM Width, 20.2 MM Depth, with a calculated volume of 17.4 CC. The peripheral zone demonstrates: No abnormalities Rest of the prostate demonstrates: No abnormalities Assessment/Plan 1. BPH with obstruction/lower urinary tract symptoms (N40.1: Benign prostatic hyperplasia with lower urinary tract symptoms) IPSS 18, QoL 4. Has been taking Tamsulosin 0.4mg qd for a few years per PCP. Also takes saw palmetto. Does not feel either works well. Admits he would prefer not take an oral med. Voids 5-6x/night with regular fluid intake, otherwise 2-3x/night if he cuts off fluids at 6pm. PVR today 27cc. UA today negative for blood and infection. Pt had IO cysto/TRUS done today w/o complications. Follow up w/U[facility]ift. All questions/concerns were discussed. Pt to call the office if he encounters any issues prior. Pt acknowledges understanding. -Cont Tamsulosin and mary maloney. Will d/c in future. -Will schedule Urolift. The procedural risks, benefits, details, and treatment alternatives have been discussed with the patient. These include bleeding, infection, continued problems urinating, increased frequency with urgency during the healing process, painful urination, need for indwelling catheter after the procedure, and the need for additional procedures in the future, among others. The risk of penile erection problems and urinary leakage is less after this procedure than some others, but could still occur. Full informed consent has been obtained. Will order Local anesthesia. -Will send Cipro 500mg, Blachly 325mg, Valium 10mg and Oxybutynin 5mg to pharm on file. Discussed the medication side effects, and the patient will monitor closely for these, as well as for symptom improvement. If severe side effects occur, the medication should be stopped and the office notified. -Pt will need a [employer]dl company driver for the Valium 10mg. 2. Prostate cancer screening (Z12.5: Encounter for screening for malignant neoplasm of prostate) PSA 09/21/19 - 1.55 07/25/20 - 2.02 08/12/21 - 2.00 08/06/22 - 2.43 -PCP monitors. Overall this patient continues on the alpha blockers but still has significant urinary symptomatology. We discussed the results of his cystoscopy and the ultrasound today. His prostate volume is actually fairly small but he (more content not included)... Normal [facility] Comment on above: Result Comment: Elec tronically Signed By: Jesse COVARRUBIAS MD\.br\Date and Time Signed: 01/08/23 09:45 EST\.br\Electronically Co-Signed By: Verona Hector\.br\Date and Time Co-Signed: 01/08/23 09:41 EST Physician Referralon 023 Physician Referral [id number] FF Normal [facility] Screenson 12-23-2022 Screens [id number] F Normal [facility] CBC AUTO DIFFon 08-12-2021 BASO # 0.0 103/ul Normal 0.0-0.1 [facility] Comment on above: Performed By: #### C BC #### [facility] [address] [address] [address] Chucho Mayberry Basophils/100 WBC (Bld) 0.7 % Normal 0.2-2.0 [facility] Comment on above: Performed By: #### C BC #### [facility] [address] [address] [address] Chucho Mayberry EO # 0.2 103/ul Normal 0.0-0.7 [facility] Comment on above: Performed By: #### C BC #### [facility] [address] [address] [address] Chucho Mayberry Eosinophils/100 WBC (Bld) 5.0 % Normal 0.9-7.0 [facility] Comment on above: Performed By: #### C BC #### [facility] [address] [address] [address] Chucho Mayberry Erythrocyte distribution width (RBC) [Ratio] 13.2 % Normal 11.0-15.0 [facility] Comment on above: Performed By: #### C BC #### [facility] [address] [address] [address] Chucho Mayberry Hematocrit (Bld) [Volume fraction] 40.6 % Critically low 42.0-54.0 [facility] Comment on above: Performed By: #### C BC #### [facility] [address] [address] [address] Chucho Mayberry Hemoglobin (Bld) [Mass/Vol] 13.6 g/dL Critically low 14.0-18.0 [facility] Comment on above: Performed By: #### C BC #### [facility] [address] [address] [address] Chucho Mayberry IG # 0.01 10e3/ul Normal 0.00-0.03 [facility] Comment on above: Performed By: #### C BC #### [facility] [address] [place] [address] Dr. Chucho Mayberry IG % 0.2 % Normal 0.0-0.5 [facility] Comment on above: Performed By: #### C BC #### [facility] [address] [place] [address] Dr. Chucho Mayberry LYMPH # 1.1 103/ul Critically low 1.2-3.[address] [facility] Comment on above: Performed By: #### C BC #### [facility] [address] [place] [address] Dr. Chucho Mayberry Lymphocytes/100 WBC (Bld) 24.9 % Normal 20.5-60.0 [facility] Comment on above: Performed By: #### C BC #### [facility] [address] [place] [address] Dr. Chucho Mayberry MANUAL DIFF REQ NO Normal [facility] Comment on above: Performed By: #### C BC #### [facility] [address] [place] [address] Dr. Chucho Mayberry MCH (RBC) [Entitic mass] 31.1 pg Normal 25.9-34.0 [facility] Comment on above: Performed By: #### C BC #### [facility] [address] [place] [address] Dr. Chucho Mayberry MCHC (RBC) [Mass/Vol] 33.5 g/dL Normal 29.9-35.2 [facility] Comment on above: Performed By: #### C BC #### [facility] [address] [place] [address] Dr. Chucho Mayberry MCV (RBC) [Entitic vol] 92.9 fL Normal 80.0-94.0 [facility] Comment on above: Performed By: #### C BC #### [facility] [address] [place] [address] Dr. Chucho Mayberry MONO # 0.5 103/ul Normal 0.3-0.8 [facility] Comment on above: Performed By: #### C BC #### [facility] [address] [address] [address] Chucho Mayberry Monocytes/100 WBC (Bld) 10.2 % Normal 1.7-12.0 [facility] Comment on above: Performed By: #### C BC #### [facility] [address] [address] [address] Chucho Mayberry NEUT # 2.6 103/ul Normal 1.4-6.5 [facility] Comment on above: Performed By: #### C BC #### [facility] [address] [address] [address] Chucho Mayberry Neutrophils/100 WBC (Bld) 59.0 % Normal 43.0-75.0 [facility] Comment on above: Performed By: #### C BC #### [facility] [address] [place] [address] Dr. Chucho Mayberry Platelet mean volume (Bld) [Entitic vol] 11.0 fL Normal 9.5-13.5 [facility] Comment on above: Performed By: #### C BC #### [facility] [address] [place] [address] Dr. Chucho Mayberry PLT 177 103/ul Normal 150-450 [facility] Comment on above: Performed By: #### C BC #### [facility] [address] [place] [address] Dr. Chucho Mayberry RBC 4.37 106/ul Critically low 4.70-6.10 [facility] Comment on above: Performed By: #### C BC #### [facility] [address] [place] [address] Dr. Chucho Mayberry WBC 4.4 103/ul Normal 4.0-11.0 [facility] Comment on above: Performed By: #### C BC #### [facility] [address] [place] [address] Dr. Chucho Mayberry LIPID PROFILEon 08-12-2021 CHOL-HDL RATIO NORM SEE BELOW Normal [facility] Comment on above: Result Comment: 3.3 - 4.4 LOW RISK 4.4 - 7.1 AVERAGE RISK 7.1 - 11.0 MODERATE RISK >11.0 HIGH RISK Performed By: #### T SH, LIPID, T4, CMP #### [facility] [address] [place] [address] Dr. Chucho Mayberry Cholesterol [Mass/Vol] 187 mg/dL Normal <=200 [facility] Comment on above: Performed By: #### T SH, LIPID, T4, CMP #### [facility] [address] [place] [address] Dr. Chucho Mayberry Cholesterol in HDL [Mass/Vol] 69 mg/dL Critically high 40-60 [facility] Comment on above: Performed By: #### T SH, LIPID, T4, CMP #### [facility] [address] [place] [address] Dr. Chucho Mayberry Cholesterol in LDL [Mass/Vol] 107.4 mg/dL Normal [facility] Comment on above: Performed By: #### T SH, LIPID, T4, CMP #### [facility] [address] [place] [address] Dr. Chucho Mayberry Cholesterol.total/C holesterol in HDL [Mass ratio] 2.7 {ratio} Normal [facility] Comment on above: Performed By: #### T SH, LIPID, T4, CMP #### [facility] [address] [place] [address] Dr. Chucho Mayberry HDL NORMAL > or = 60 mg/dl - LO W CARDIOVASCULAR RISK <40 mg/dl - HIGH CARDIOVASCULAR RISK Normal [facility] Comment on above: Performed By: #### T SH, LIPID, T4, CMP #### [facility] [address] [place] [address] Dr. Chucho Mayberry LDL CALC NORMAL SEE BELOW Normal [facility] Comment on above: Result Comment: <100 mg/dl OPTIMAL 100 - 129 mg/dl NEAR OR ABOVE OPTIMAL 130 - 159 mg/dl BORDERLINE HIGH 160 - 189 mg/dl HIGH >190 mg/dl VERY HIGH Performed By: #### T SH, LIPID, T4, CMP #### [facility] [address] [place] [address] Dr. Chucho Mayberry Triglyceride [Mass/Vol] 53 mg/dL Normal <=150 [facility] Comment on above: Performed By: #### T SH, LIPID, T4, CMP #### [facility] [address] [address] [address] Chucho Mayberry VLDL CALC 10.6 mg/dL Normal [facility] Comment on above: Performed By: #### T SH, LIPID, T4, CMP #### [facility] [address] [address] [address] Chucho Mayberry PROF 14(COMP METB)on 022 Albumin [Mass/Vol] 3.8 g/dL Normal 3.4-5.0 [facility] Comment on above: Performed By: #### T SH, LIPID, T4, CMP #### [facility] [address] [place] [address] Dr. Chucho Mayberry Albumin/Globulin [Mass ratio] 1.1 {ratio} Normal [facility] Comment on above: Performed By: #### T SH, LIPID, T4, CMP #### [facility] [address] [place] [address] Dr. Chucho Mayberry ALP [Catalytic activity/Vol] 87 U/L Normal 46-116 [facility] Comment on above: Performed By: #### T SH, LIPID, T4, CMP #### [facility] [address] [place] [address] Dr. Chucho Mayberry ALT [Catalytic activity/Vol] 21 U/L Normal 16-63 [facility] Comment on above: Performed By: #### T SH, LIPID, T4, CMP #### [facility] [address] [place] [address] Dr. Chucho Mayberry Anion gap [Moles/Vol] 10.5 mmol/L Normal [facility] Comment on above: Performed By: #### T SH, LIPID, T4, CMP #### [facility] [address] [place] [address] Dr. Chucho Mayberry AST [Catalytic activity/Vol] 19 U/L Normal 15-37 [facility] Comment on above: Performed By: #### T SH, LIPID, T4, CMP #### [facility] [address] [address] [address] Chucho Mayberry Bilirubin [Mass/Vol] 0.8 mg/dL Normal 0.2-1.0 [facility] Comment on above: Performed By: #### T SH, LIPID, T4, CMP #### [facility] [address] [address] [address] Chucho Mayberry Calcium [Mass/Vol] 8.7 mg/dL Normal 8.5-10.1 [facility] Comment on above: Performed By: #### T SH, LIPID, T4, CMP #### [facility] [address] [address] [address] Chucho Mayberry Chloride [Moles/Vol] 106 mmol/L Normal 98-107 [facility] Comment on above: Performed By: #### T SH, LIPID, T4, CMP #### [facility] [address] [place] [address] Dr. Chucho aMyberry CO2 [Moles/Vol] 28.7 mmol/L Normal 21.0-32.0 [facility] Comment on above: Performed By: #### T SH, LIPID, T4, CMP #### [facility] [address] [address] [address] Chucho Mayberry Creatinine [Mass/Vol] 1.17 mg/dL Normal 0.70-1.30 [facility] Comment on above: Performed By: #### T SH, LIPID, T4, CMP #### [facility] [address] [place] [address] Dr. Chucho Mayberry EGFR-AF LAO >60 Normal >=60 [facility] Comment on above: Performed By: #### T SH, LIPID, T4, CMP #### [facility] [address] [place] [address] Dr. Chucho Mayberry EGFR-NON AF LAO >60 Normal >=60 [facility] Comment on above: Performed By: #### T SH, LIPID, T4, CMP #### [facility] [address] [place] [address] Dr. Chucho Mayberry Globulin (S) [Mass/Vol] 3.4 g/dL Normal [facility] Comment on above: Performed By: #### T SH, LIPID, T4, CMP #### [facility] [address] [address] [address] Chucho Mayberry Glucose [Mass/Vol] 91 mg/dL Normal 74-106 [facility] Comment on above: Performed By: #### T SH, LIPID, T4, CMP #### [facility] [address] [place] [address] Dr. Chucho Mayberry Potassium [Moles/Vol] 4.2 mmol/L Normal 3.5-5.1 [facility] Comment on above: Performed By: #### T SH, LIPID, T4, CMP #### [facility] [address] [address] [address] Chucho Mayberry Protein [Mass/Vol] 7.2 g/dL Normal 6.4-8.2 [facility] Comment on above: Performed By: #### T SH, LIPID, T4, CMP #### [facility] [address] [place] [address] Dr. Chucho Mayberry Sodium [Moles/Vol] 141 mmol/L Normal 136-145 [facility] Comment on above: Performed By: #### T SH, LIPID, T4, CMP #### [facility] [address] [place] [address] Dr. Chucho Mayberry Urea nitrogen [Mass/Vol] 21.0 mg/dL Critically high 7.0-18.0 [facility] Comment on above: Performed By: #### T SH, LIPID, T4, CMP #### [facility] [address] [place] [address] Dr. Chucho Mayberry Urea nitrogen/Creatinine [Mass ratio] 17.9 mg/mg Normal [facility] Comment on above: Performed By: #### T SH, LIPID, T4, CMP #### [facility] [address] [place] [address] Dr. Chucho Mayberry T4on 08-12-2021 T4 [Mass/Vol] 7.50 ug/dL Normal 4.50-12.10 [facility] Comment on above: Performed By: #### T SH, LIPID, T4, CMP #### [facility] [address] [address] [address] Chucho Mayberry TSHon 08-12-2021 TSH 3.932 uIU/mL Critically high 0.358-3.740 [facility] Comment on above: Performed By: #### T SH, LIPID, T4, CMP #### [facility] [address] [address] [address] Chucho Mayberry Vital Signs Date Time Vital Sign Value Performing Clinician Facility 08-05-2023 08:25-0400 Body height 182.88 cm [facility] 08-05-2023 08:25-0400 Body mass index (BMI) [Ratio] 26.8 kg/m2 [facility] 08-05-2023 08:25-0400 Body weight 89.81 kg [facility] 08-05-2023 08:25-0400 Diastolic blood pressure 79 mm[Hg] [facility] 08-05-2023 08:25-0400 Heart rate 41 /min [facility] 08-05-2023 08:25-0400 Systolic blood pressure 132 mm[Hg] [facility] 04-13-2023 13:55-0500 Blood Pressure Location PRICILLA ABDULLAHI [facility] 04-13-2023 13:55-0500 Diastolic blood pressure 79 mm[Hg] PRICILLA BRADLY [facility] 04-13-2023 13:55-0500 Heart rate 54 /min PRICILLA BRADLY [facility] 04-13-2023 13:55-0500 Respiratory rate 16 /min PRICILLA BRADLY [facility] 04-13-2023 13:55-0500 Systolic blood pressure 128 mm[Hg] PRICILLA BRADLY [facility] 02-16-2023 14:51-0500 Blood Pressure Location PRICILLA BRADLY [facility] 02-16-2023 14:51-0500 Diastolic blood pressure 78 mm[Hg] PRICILLA BRADLY [facility] 02-16-2023 14:51-0500 Heart rate 82 /min PRICILLA BRADLY [facility] 02-16-2023 14:51-0500 Systolic blood pressure 118 mm[Hg] PRICILLA BRADLY [facility] 01-08-2023 08:37-0500 Blood Pressure Location Jesse COOK [facility] 01-08-2023 08:37-0500 Body temperature 97.52 [degF] Jesse COOK [facility] 01-08-2023 08:37-0500 Diastolic blood pressure 82 mm[Hg] Jesse COOK [facility] 01-08-2023 08:37-0500 Heart rate 78 /min Jesse COOK [facility] 01-08-2023 08:37-0500 Systolic blood pressure 124 mm[Hg] Jesse COOK [facility] 12-22-2022 13:37-0500 Blood Pressure Location PRICILLA BRADLY [facility] 12-22-2022 13:37-0500 Diastolic blood pressure 79 mm[Hg] PRICILLA BRADLY [facility] 12-22-2022 13:37-0500 Heart rate 80 /min PRICILLA ABDULLAHI [facility] 12-22-2022 13:37-0500 Respiratory rate 16 /min PRICILLA ABDULLAHI [facility] 12-22-2022 13:37-0500 Systolic blood pressure 128 mm[Hg] PRICILLA ABDULLAHI [facility] Encounters Encounter Date Encounter Type Care Provider Facility Start: 08-05-2023 End: 08-05-2023 ambulatory [facility] Work Phone: Start: 08-05-2023 End: 08-05-2023 Patient encounter procedure [facility] Work Phone: Start: 04-13-2023 ambulatory PRICILLA Boyd BRADLY Facili ty:[facility] Start: 04-13-2023 End: 04-13-2023 Patient encounter procedure PRICILLA E BRADLY [facility] Start: 02-16-2023 End: 02-17-2023 ambulatory PRICILLA E BRADLY Facility:[facility] Start: 02-16-2023 End: 02-16-2023 Patient encounter procedure PIRCILLA Boyd BRADLY [facility] Start: 02-12-2023 End: 02-13-2023 ambulatory Jesse COVARRUBIAS Facility:[facility] [place] Start: 02-12-2023 End: 02-12-2023 Patient encounter procedure Jesse COVARRUBIAS [facility] [place] Start: 02-11-2023 End: 02-12-2023 ambulatory Jesse COVARRUBIAS [place] Start: 02-11-2023 End: 02-11-2023 Patient encounter procedure Jesse COVARRUBIAS [facility] Start: 01-08-2023 End: 01-09-2023 ambulatory Jesse COVARRUBIAS Facility:[facility] Start: 01-08-2023 End: 01-08-2023 Patient encounter procedure Jesse COVARRUBIAS [facility] Start: 12-22-2022 End: 12-23-2022 ambulatory PRICILLA Boyd ABDULLAHI Facility:[facility] [place] Start: 12-22-2022 End: 12-22-2022 Patient encounter procedure [facility]ULLAHI [facility] Start: 10-20-2022 ambulatory Jesse COVARRUBIAS Facility:[facility] [place] Start: 08-12-2021 End: 08-13-[address] LUCIANA COOPER Facility: Start: 12-17-2020 End: 12-17-2020 ambulatory Areli Valverde Other [facility] Other Start: 12-17-2020 Office outpatient visit 10 minutes Areli Valverde [facility] Start: 03-30-2018 End: 03-30-2018 Aki Leal Work Phone: DEPARTMENT OF OTOLARYNGOLOGY Comment on above: Meniere's disease of left ear Start: 03-21-2018 End: 03-21-2018 Patient encounter procedure Gabriela Leal Work Phone: Department of Otolaryngology Comment on above: Meniere's disease of left ear Start: 03-16-2018 End: 03-16-2018 Aki Leal Work Phone: DEPARTMENT OF OTOLARYNGOLOGY Start: 04-27-2016 End: 04-27-2016 Telephone encounter Rayne Israel Department of Otolaryngology Comment on above: Medication Refill Start: 02-14-2016 End: 02-14-2016 Telephone encounter Rayne Israel Department of Ot[facility]ology Comment on above: Medical Records Procedures Date Procedure Procedure Detail Performing Clinician Start: 02-11-2023 Transurethral insert ion of prostatic urethral lift implant PRICILLA ABDULLAHI Comment on above: 6 implants Start: 01-08-2023 Transurethral cystoscopy Jesse COVARRUBIAS Start: 08-12-[address] DEISY COOPER Comment on above: Performed By: #### P SAD #### [facility] [address] [place] [address] Dr. Chucho Mayberry Arthroscopy of knee PRICILLA ABDULLAHI Arthroscopy of shoulder MONY ABDULLAHI Colonoscopy PRICILLA ABDULLAHI Tonsillectomy PRICILLA ABDULLAHI Ultrasonography by transrectal approach eJsse COVARRUBIAS Plan of Treatment Date Care Activity Detail Author Start: 10-16-2018 Influenza vaccination INFLUENZA VACC INE (#1) [facility] Start: 10-16-2017 Influenza vaccination INFLUENZA VACC INE (#1) [facility] Work Phone: Start: 09-14-2005 Colonoscopy COLON CANCER S CREENING DISCUSSION [facility] Start: 09-14-2005 Prostate specific an tigen measurement PROSTATE CANCER SCREENING DISCUSSION [facility] Work Phone: Start: 09-14-2005 Protein mass conc COLON CANCER SCREENING DISCUSSION [facility] Work Phone: Start: 09-14-2005 Zoster vaccine hzv l kathe for subcutaneous use ZOSTER (SHINGLES) VACCINE (1 of 2) [facility] Start: 1995 Fasting lipid profile LIPID SCREENIN G [facility] Work Phone: Start: 09-14-1974 Third diphtheria, te tanus and acellular pertussis (DTaP) vaccination TDAP (ADULT) [facility] Work Phone: Start: 09-14-1973 Tetanus vaccination TETANUS [facility] Work Phone: Start: 09-14-1968 HIV screening HIV SCREENING DISCUSSION [facility] Work Phone: Start: 1955 Hepatitis C antibody , confirmatory test HEPATITIS C VIRUS SCREENING [facility] Work Phone: Start: 1955 Potassium molar conc POTASSIUM [facility] Work Phone: Start: 1955 Thyrotropin Qn TSH [place] [facility] Work Phone: Comprehensive metabo lic 2000 panel - Serum or Plasma [facility] Immunizations Immunization Date Immunization Notes Care Provider Rossi driver 05-22-2020 SARS-CoV-2 (COVID-19 ) mRNA BNT-162b2 vax PRICILLA ABDULLAHI [facility] 05-01-2020 SARS-CoV-2 (COVID-19 ) mRNA BNT-162b2 vax PRICILLA ABDULLAHI [facility] 01-16-2016 Dexamethasone Inj Gabriela Leal U [facility] Payers Date Payer Category Payer Medicare [id number] 2016 Private Health Insurance [facility] GENERIC xxxxxxxx 2016-Present xxxxxxxx [id number] 1959 Medicare [id number] 1959 Unknown [id number] 1955 Unknown [id number] 2.16.840.1.222802.3.579. 2.593 1955 Unknown [id number] 2.16.840.1.791534.3.579. 2.727 1955 Unknown [id number] 2.16.840.1.686185.3.579. 2.727 1955 Unknown [id number] 2.16.840.1.178677.3.579. 2.727 1955 Unknown [id number] 2.16.840.1.156215.3.579. 2.727 1955 Unknown [id number] 2.16.840.1.220863.3.579. 2.727 1955 Unknown [id number] 2.16.840.1.017013.3.579. 2.727 1955 Unknown [id number] 2.16.840.1.236521.3.579. 2.727 1955 Unknown [id number] 2.16.840.1.892237.3.579. 2.727 1955 Unknown [id number] 2.16.840.1.167867.3.579. 2.727 Medicare Medicare [id number] Self-pay Self Pay [id number] Unknown R [id number] Unknown [place] [id number] Social History Date Type Detail Facility Start: 09-17-2016 End: 09-09-2019 Tobacco smoking status NHIS Never smoker [facility] Sex Assigned At Not on file [facility] Work Phone: Sex Assigned At [facility] Tobacco smoking status Never [facility] Start: 1955 Sex Assigned At Male F [facility] Functional Status Date Assessment Result Facility 04-13-2023 Functional Status N/A [facility] 02-16-2023 Functional Status N/A [facility] 02-11-2023 Functional Status N/A [facility] 01-08-2023 Functional Status N/A [facility] 12-22-2022 Functional Status N/A [facility] Clinical Notes 12-17-2020 to 04-13-2023 Note Date & Type Note Facility 04-13-2023 Hospital Discharge instructions Patient Education 04/13/2023 14:31:25 Benign Prostatic Hyperplasia Benign Prostatic Hyperplasia Benign prostatic hyperplasia (BPH) is an enlarged prostate gland that is caused by the normal aging process. The prostate may get bigger as a man gets older. The condition is not caused by cancer. The prostate is a walnut-sized gland that is involved in the production of semen. It is located in front of the rectum and below the bladder. The bladder stores urine. The urethra carries stored urine out of the body. An enlarged prostate can press on the urethra. This can make it harder to pass urine. The buildup of urine in the bladder can cause infection. Back pressure and infection may progress to bladder damage and kidney (renal) failure. What are the causes? This condition is part of the normal aging process. However, not all men develop problems from this condition. If the prostate enlarges away from the urethra, urine flow will not be blocked. If it enlarges toward the urethra and compresses it, there will be problems passing urine. What increases the risk? This condition is more likely to develop in men older than 50 years. What are the signs or symptoms? Symptoms of this condition include: Getting up often during the night to urinate. Needing to urinate frequently during the day. Difficulty starting urine flow. Decrease in size and strength of your urine stream. Leaking (dribbling) after urinating. Inability to pass urine. This needs immediate treatment. Inability to completely empty your bladder. Pain when you pass urine. This is more common if there is also an infection. Urinary tract infection (UTI). How is this diagnosed? This condition is diagnosed based on your medical history, a physical exam, and your symptoms. Tests will also be done, such as: A post-void bladder scan. This measures any amount of urine that may remain in your bladder after you finish urinating. A digital rectal exam. In a rectal exam, your health care provider checks your prostate by putting a lubricated, gloved finger into your rectum to feel the back of your prostate gland. This exam detects the size of your gland and any abnormal lumps or growths. An exam of your urine (urinalysis). A prostate specific antigen (PSA) screening. This is a blood test used to screen for prostate cancer. An ultrasound. This test uses sound waves to electronically produce a picture of your prostate gland. Your health care provider may refer you to a specialist in kidney and prostate diseases (urologist). How is this treated? Once symptoms begin, your health care provider will monitor your condition (active surveillance or watchful waiting). Treatment for this condition will depend on the severity of your condition. Treatment may include: Observation and yearly exams. This may be the only treatment needed if your condition and symptoms are mild. Medicines to relieve your symptoms, including: ?Medicines to shrink the prostate. ?Medicines to relax the muscle of the prostate. Surgery in severe cases. Surgery may include: ?Prostatectomy. In this procedure, the prostate tissue is removed completely through an open incision or with a laparoscope or robotics. ?Transurethral resection of the prostate (TURP). In this procedure, a tool is inserted through the opening at the tip of the penis (urethra). It is used to cut away tissue of the inner core of the prostate. The pieces are removed through the same opening of the penis. This removes the blockage. ?Transurethral incision (TUIP). In this procedure, small cuts are made in the prostate. This lessens the prostate's pressure on the urethra. ?Transurethral microwave thermotherapy (TUMT). This procedure uses microwaves to create heat. The heat destroys and removes a small amount of prostate tissue. ?Transurethral needle ablation (TUNA). This procedure uses radio frequencies to destroy and remove a small amount of prostate tissue. ?Interstitial laser coagulation (ILC). This procedure uses a laser to destroy and remove a small amount of prostate tissue. ?Transurethral electrovaporization (TUVP). This procedure uses electrodes to destroy and remove a small amount of prostate tissue. ?Prostatic urethral lift. This procedure inserts an implant to push the lobes of the prostate away from the urethra. Follow these instructions at home: Take bykk-jom-ifqgsyp and prescription medicines only as told by your health care provider. Monitor your symptoms for any changes. Contact your health care provider with any changes. Avoid drinking large amounts of liquid before going to bed or out in public. Avoid or reduce how much caffeine or alcohol you drink. Give yourself time when you urinate. Keep all follow-up visits. This is important. Contact a health care provider if: You have unexplained back pain. Your symptoms do not get better with treatment. You develop side effects from the medicine you are taking. Your urine becomes very dark or has a bad smell. Your lower abdomen becomes distended and you have trouble passing urine. Get help right away if: You have a fever or chills. You suddenly cannot urinate. You feel light-headed or very dizzy, or you faint. There are large amounts of blood or clots in your urine. Your urinary problems become hard to manage. You develop moderate to severe low back or flank pain. The flank is the side of your body between the ribs and the hip. These symptoms may be an emergency. Get help right away. Call 911. Do not wait to see if the symptoms will go away. Do not drive yourself to the hospital. Summary Benign prostatic hyperplasia (BPH) is an enlarged prostate that is caused by the normal aging process. It is not caused by cancer. An enlarged prostate can press on the urethra. This can make it hard to pass urine. This condition is more likely to develop in men older than 50 years. Get help right away if you suddenly cannot urinate. This information is not intended to replace advice given to you by your health care provider. Make sure you discuss any questions you have with your health care provider. Document Revised: 08/20/2021 Document Reviewed: 08/20/2021 [employer] Patient Education 2022 [place]. Follow Up Care 02/16/2023 16:00:07 With:PRICILLA ABDULLAHI PA-C, URL Address: [address] [place] [address] When: Unknown [facility] 02-16-2023 Hospital Discharge instructions Patient Education 02/16/2023 15:38:26 Benign Prostatic Hyperplasia Benign Prostatic Hyperplasia Benign prostatic hyperplasia (BPH) is an enlarged prostate gland that is caused by the normal aging process. The prostate may get bigger as a man gets older. The condition is not caused by cancer. The prostate is a walnut-sized gland that is involved in the production of semen. It is located in front of the rectum and below the bladder. The bladder stores urine. The urethra carries stored urine out of the body. An enlarged prostate can press on the urethra. This can make it harder to pass urine. The buildup of urine in the bladder can cause infection. Back pressure and infection may progress to bladder damage and kidney (renal) failure. What are the causes? This condition is part of the normal aging process. However, not all men develop problems from this condition. If the prostate enlarges away from the urethra, urine flow will not be blocked. If it enlarges toward the urethra and compresses it, there will be problems passing urine. What increases the risk? This condition is more likely to develop in men older than 50 years. What are the signs or symptoms? Symptoms of this condition include: Getting up often during the night to urinate. Needing to urinate frequently during the day. Difficulty starting urine flow. Decrease in size and strength of your urine stream. Leaking (dribbling) after urinating. Inability to pass urine. This needs immediate treatment. Inability to completely empty your bladder. Pain when you pass urine. This is more common if there is also an infection. Urinary tract infection (UTI). How is this diagnosed? This condition is diagnosed based on your medical history, a physical exam, and your symptoms. Tests will also be done, such as: A post-void bladder scan. This measures any amount of urine that may remain in your bladder after you finish urinating. A digital rectal exam. In a rectal exam, your health care provider checks your prostate by putting a lubricated, gloved finger into your rectum to feel the back of your prostate gland. This exam detects the size of your gland and any abnormal lumps or growths. An exam of your urine (urinalysis). A prostate specific antigen (PSA) screening. This is a blood test used to screen for prostate cancer. An ultrasound. This test uses sound waves to electronically produce a picture of your prostate gland. Your health care provider may refer you to a specialist in kidney and prostate diseases (urologist). How is this treated? Once symptoms begin, your health care provider will monitor your condition (active surveillance or watchful waiting). Treatment for this condition will depend on the severity of your condition. Treatment may include: Observation and yearly exams. This may be the only treatment needed if your condition and symptoms are mild. Medicines to relieve your symptoms, including: ?Medicines to shrink the prostate. ?Medicines to relax the muscle of the prostate. Surgery in severe cases. Surgery may include: ?Prostatectomy. In this procedure, the prostate tissue is removed completely through an open incision or with a laparoscope or robotics. ?Transurethral resection of the prostate (TURP). In this procedure, a tool is inserted through the opening at the tip of the penis (urethra). It is used to cut away tissue of the inner core of the prostate. The pieces are removed through the same opening of the penis. This removes the blockage. ?Transurethral incision (TUIP). In this procedure, small cuts are made in the prostate. This lessens the prostate's pressure on the urethra. ?Transurethral microwave thermotherapy (TUMT). This procedure uses microwaves to create heat. The heat destroys and removes a small amount of prostate tissue. ?Transurethral needle ablation (TUNA). This procedure uses radio frequencies to destroy and remove a small amount of prostate tissue. ?Interstitial laser coagulation (ILC). This procedure uses a laser to destroy and remove a small amount of prostate tissue. ?Transurethral electrovaporization (TUVP). This procedure uses electrodes to destroy and remove a small amount of prostate tissue. ?Prostatic urethral lift. This procedure inserts an implant to push the lobes of the prostate away from the urethra. Follow these instructions at home: Take jmzq-ofo-evgdvuy and prescription medicines only as told by your health care provider. Monitor your symptoms for any changes. Contact your health care provider with any changes. Avoid drinking large amounts of liquid before going to bed or out in public. Avoid or reduce how much caffeine or alcohol you drink. Give yourself time when you urinate. Keep all follow-up visits. This is important. Contact a health care provider if: You have unexplained back pain. Your symptoms do not get better with treatment. You develop side effects from the medicine you are taking. Your urine becomes very dark or has a bad smell. Your lower abdomen becomes distended and you have trouble passing urine. Get help right away if: You have a fever or chills. You suddenly cannot urinate. You feel light-headed or very dizzy, or you faint. There are large amounts of blood or clots in your urine. Your urinary problems become hard to manage. You develop moderate to severe low back or flank pain. The flank is the side of your body between the ribs and the hip. These symptoms may be an emergency. Get help right away. Call 911. Do not wait to see if the symptoms will go away. Do not drive yourself to the hospital. Summary Benign prostatic hyperplasia (BPH) is an enlarged prostate that is caused by the normal aging process. It is not caused by cancer. An enlarged prostate can press on the urethra. This can make it hard to pass urine. This condition is more likely to develop in men older than 50 years. Get help right away if you suddenly cannot urinate. This information is not intended to replace advice given to you by your health care provider. Make sure you discuss any questions you have with your health care provider. Document Revised: 08/20/2021 Document Reviewed: 08/20/2021 [employer] Patient Education 2022 [place]. Follow Up Care 02/11/2023 10:14:12 With:PRICILLA ABDULLAHI PA-C, URL Address: [address] [place] [address] [phone] When: Unknown Comments:6 wks [facility] 02-11-2023 Note [id number] [facility] 02-11-2023 Hospital Discharge instructions Patient Education 02/11/2023 09:25:49 Lue - Urolift Post-Op Instructions (Custom) [facility] [place] [place] Post-Operative Instructions for UroLift After your procedure it is normal to have: Gross Hematuria (blood in the urine) You may even notice blood clots in your urine. A small amount of blood may apppear to be a lot of blood in your urine as it is diluted. Restarting your blood thinner, increased activity and heavy lifting could increase the amount of bleeding. The bleeding may be sporadic (off and on) over the next 2-3 weeks. Ensure you are hydrating to assist in flushing the blood to prevent voiding complications. In the event you are unable to void, please reach out to our office. If the office is closed, you will need to report to the local emergency room. Blood in your semen and stool may be present. The blood in your semen is not harmful to you or your partner. This will resolve with time. Frequency/urgency/burning with urination is very common. This is due to irritation from your procedure. These symptoms do not indicate that your procedure was unsuccessful or that there is an infection. Ensure you are hydrating! You may try AZO over the counter as needed for urinary discomfort. Pain/discomfort are normal as well. There has been a non-narcotic prescription sent to your pharmacy. You may alternate this prescription with over the counter Ibuprofen. Your pain and discomfort should improve within a few days. When do I need to call the office? We ask that you reach out to the office if you experience a temperature of 100.4 F or higher, excessive urinary bleeding, symptoms of infection, inability to urinate or uncontrolled pain. If the office is closed, you may need to present to the local emergency department. De La Paz catheter If you have a catheter and will remove it at home, you may do so the next day if urine is clear and no longer red/pink in color. If urine is red, wait until clear to remove the catheter. See attached instructions for removal. Postop UroLift Instructions Complete your antibiotic as instructed. Remain on all your urinary medication until follow up. Take your pain madications and AZO as needed. Resume any blood thinners 48 hour post procedure. Continue to hydrate! Minimize your activity for 72-96 hours post procedure. If you are prescribed Oxybutynin for bladder spasms, you may take this medication every 8 hours as needed. This medication may cause dry mouth/eyes and constipation. Taking an over the counter stool softener and drinking plenty of water will help with side effects. De La Paz Catheter Removal De La Paz Catheter I did not place one after your procedure today. When to Call Your Healthcare Provider (or to to your local emergency department) Call the healthcare provider right away if: You have a fever of 100.4 F (38 C) or higher, or as directed by your healthcare provider. You have questions about removing the catheter. The catheter does not come out with gentle pulling. You cannot urinate within 8 hours of removing the catheter. Your belly (abdomen) is painful or bloated You have burning pain with urination that lasts for 24 hours. You see a lot of blood in your urine. Light bleeding for 24 hours is normal. It feels like the bladder is not emptying. Follow Up Care 01/08/2023 09:55:03 With:Jesse COVARRUBIAS Address: [address] [place] [phone] (1) When:1 to 2 weeks Comments:Call for followup appointment to remove the catheter. Stay on your Flomax (tamsulosin) for now. You may be seeing one of our nurse practitioners or physician assistants. [facility] 12-23-2022 Hospital Discharge instructions Follow Up Care 12/23/2022 10:30:34 With:Jesse COVARRUBIAS MD P, URL Address: [address] [place] [phone] When: Unknown Comments:Sched UroLift [facility] [place] 12-22-2022 Note Chief Complaint Referral *BPH HPI Staff Evaluation requested by Dr Tasha Lancaster due to frequency & nocturia. Pt is a new pt, never before seen in our office. Per PCP notes, pt is taking Flomax 0.4mg qd & Saw Amara MARQUEZ 08/12/21 *BUN 21.0 & Crea 1.17 PSA 09/21/19- 1.55 PSA 07/25/20- 2.02 PSA 08/12/21- 2.00 PSA 08/06/22- 2.43 +Fam Hx of Bladder Cancer *Father Denies Hx of Smoking. Denies visible blood in urine. Denies pain/burning. Was experiencing frequency. Started Tamsulosin & Saw [place]. Has been taking for a few yrs. Does not notice any changes. Does not drink past 6pm due to getting up 5-6x/night. Even without drinking after 6pm he gets up 2-3x/night. Weak stream, unless he has been holding his bladder for a while, then it's stronger. PVR 27ml History of Present Illness staff HPI reviewed and agree. Review of Systems PHQ Score Initial Depression Screen Score: 0 no fever, chills, malaise, myalgia. no rash/lesions. no chest pain, palpitations, or SOB. no abdominal pain, nausea, vomiting. no unilateral calf swelling, redness, pain Physical Exam Vitals & Measurements HR: 80(Peripheral) RR: 16 BP: 128/79 HT: 73 in HT: 185 cm WT: 89.5 kg WT: 196.9 lb BMI: 26.15 General: nontoxic, NAD Mouth: moist mucosa Lungs: normal respiratory effort Cardio: regular rate, good distal perfusion Abdomen: nondistended, no suprapubic distention or tenderness, no CVA tenderness Neurologic: Grossly normal Skin: No rashes or suspicious lesions FITO: benign. no asymmetry, induration, nodules. Assessment/Plan Flori is a 67 yo M new pt referred by Dr. Tasha Lancaster for frequency and nocturia. CMP 08/12/21 - BUN 21. Cr 1.17. GFR >60. 1. BPH with obstruction/lower urinary tract symptoms (N40.1: Benign prostatic hyperplasia with lower urinary tract symptoms) IPSS 18, QoL 4. Has been taking Tamsulosin 0.4mg qd for a few years per PCP. Also takes saw palmetto. Does not feel either works well. Admits he would prefer not take an oral med. Voids 5-6x/night with regular fluid intake, otherwise 2-3x/night if he cuts off fluids at 6pm. PVR today 27cc. UA today negative for blood and infection. Discussed different treatment options for bladder outlet obstruction including oral medications, operative interventions such as TURP, versus less invasive options such as Rezum or Urolift, depending on prostate size and shape. Educational pamphlets provided. Discussed candidacy for operative interventions will require a cystoscopy. Pt states he would prefer an operative intervention vs oral med. -Cont Tamsulosin and mary maloney. Will dc in future. -Will schedule cystoscopy/TRUS. The risks and benefits for cystoscopy have been discussed. The risks include bleeding, infection, and irritation of the bladder and urinary channel, among others. The patient, after being informed of procedural details and after questions have been answered, wishes to proceed. Full informed consent has been obtained. Will order Local anesthesia. Ordered: [id number] Measure Post Void residual urine and/or bladder capacity by US- non-imaging E&M of New Patient Moderate 45-59 Min [id number] 2. Prostate cancer screening (Z12.5: Encounter for screening for malignant neoplasm of prostate) PSA 09/21/19 - 1.55 07/25/20 - 2.02 08/12/21 - 2.00 08/06/22 - 2.43 Discussed PSA level which remains low overall but is trending up slightly over the past few years. PCP monitors. Ordered: E&M of New Patient Moderate 45-59 Min [id number] Orders: Urnls Dip Stick Auto w/o Microscopy POC [id number] Follow-up With When Contact Information BRADLY THOMPSON, PRICILLA Nix, URL [address] [address] [phone] Additional Instructions: sched cysto/TRUS Patient Education Cystoscopy Benign Prostatic Hyperplasia Documentation recorded by the consuelo Hickman accurately reflects the services(s) I performed and decisions made by me. Authenticated by Pricilla Abdullahi PA-C on 12/22/2022 14:23:48. IDayami, personally scribed for Pricilla Abdullahi PA-C on 12/22/2022 14:07:59. . 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 Medications aspirin magnesium oxide 250 mg oral tablet, Oral, Daily rosuvastatin 5 mg Tab saw palmetto, Oral Synthroid 50 mcg Tab tamsulosin 0.4 mg Cap Turmeric, Oral, Daily Vitamin D3 Allergies Dyazide (Lethargy) Social History Tobacco Never (less than 100 in lifetime) Tobacco Use:. Never Smokeless Tobacco Use:. Household tobacco concerns: No. Yes, 12/22/2022 Family History Bladder cancer: Father. Immunizations Vaccine Date Statu (more content not included)... [facility] Comment on above: Result Comment: Elec tronically Signed By: PRICILLA ABDULLAHI PA-C\.br\Date and Time Signed: 12/22/22 14:24 EST\.br\Electronically Co-Signed By: Dayami Hickman\.br\Date and Time Co-Signed: 12/22/22 14:16 EST 12-22-2022 Hospital Discharge instructions Patient Education 12/22/2022 14:01:35 Cystoscopy Cystoscopy Cystoscopy is a procedure that is used to help diagnose and sometimes treat conditions that affect the lower urinary tract. The lower urinary tract includes the bladder and the urethra. The urethra is the tube that drains urine from the bladder. Cystoscopy is done using a thin, tube-shaped instrument with a light and camera at the end (cystoscope). The cystoscope may be hard or flexible, depending on the goal of the procedure. The cystoscope is inserted through the urethra, into the bladder. Cystoscopy may be recommended if you have: Urinary tract infections that keep coming back. Blood in the urine (hematuria). An inability to control when you urinate (urinary incontinence) or an overactive bladder. Unusual cells found in a urine sample. A blockage in the urethra, such as a urinary stone. Painful urination. An abnormality in the bladder found during an intravenous pyelogram (IVP) or CT scan. Cystoscopy may also be done to remove a sample of tissue to be examined under a microscope (biopsy). Tell a health care provider about: Any allergies you have. All medicines you are taking, including vitamins, herbs, eye drops, creams, and wqkh-fsg-yndbffq medicines. Any problems you or family members have had with anesthetic medicines. Any blood disorders you have. Any surgeries you have had. Any medical conditions you have. Whether you are or may be . What are the risks? Generally, this is a safe procedure. However, problems may occur, including: Infection. Bleeding. Allergic reactions to medicines. Damage to other structures or organs. What happens before the procedure? Medicines Ask your health care provider about: Changing or stopping your regular medicines. This is especially important if you are taking diabetes medicines or blood thinners. Taking medicines such as aspirin and ibuprofen. These medicines can thin your blood. Do not take these medicines unless your health care provider tells you to take them. Taking bqyf-ebz-zitcyws medicines, vitamins, herbs, and supplements. Tests You may have an exam or testing, such as: X-rays of the bladder, urethra, or kidneys. CT scan of the abdomen or pelvis. Urine tests to check for signs of infection. General instructions Follow instructions from your health care provider about eating or drinking restrictions. Ask your health care provider what steps will be taken to help prevent infection. These steps may include: ?Washing skin with a germ-killing soap. ?Taking antibiotic medicine. Plan to have a responsible adult take you home from the hospital or clinic. What happens during the procedure? You will be given one or more of the following: ?A medicine to help you relax (sedative). ?A medicine to numb the area (local anesthetic). The area around the opening of your urethra will be cleaned. The cystoscope will be passed through your urethra into your bladder. Germ-free (sterile) fluid will flow through the cystoscope to fill your bladder. The fluid will stretch your bladder so that your health care provider can clearly examine your bladder rm. Your doctor will look at the urethra and bladder. Your doctor may take a biopsy or remove stones. The cystoscope will be removed, and your bladder will be emptied. The procedure may vary among health care providers and hospitals. What can I expect after the procedure? After the procedure, it is common to have: Some soreness or pain in your abdomen and urethra. Urinary symptoms. These include: ?Mild pain or burning when you urinate. Pain should stop within a few minutes after you urinate. This may last for up to 1 week. ?A small amount of blood in your urine for several days. ?Feeling like you need to urinate but producing only a small amount of urine. Follow these instructions at home: Medicines Take hlew-jow-rwngqox and prescription medicines only as told by your health care provider. If you were prescribed an antibiotic medicine, take it as told by your health care provider. Do not stop taking the antibiotic even if you start to feel better. General instructions Return to your normal activities as told by your health care provider. Ask your health care provider what activities are safe for you. If you were given a sedative during the procedure, it can affect you for several hours. Do not drive or operate machinery until your health care provider says that it is safe. Watch for any blood in your urine. If the amount of blood in your urine increases, call your health care provider. Follow instructions from your health care provider about eating or drinking restrictions. If a tissue sample was removed for testing (biopsy) during your procedure, it is up to you to get your test results. Ask your health care provider, or the department that is doing the test, when your results will be ready. Drink enough fluid to keep your urine pale yellow. Keep all follow-up visits. This is important. Contact a health care provider if: You have pain that gets worse or does not get better with medicine, especially pain when you urinate. You have trouble urinating. You have more blood in your urine. Get help right away if: You have blood clots in your urine. You have abdominal pain. You have a fever or chills. You are unable to urinate. Summary Cystoscopy is a procedure that is used to help diagnose and sometimes treat conditions that affect the lower urinary tract. Cystoscopy is done using a thin, tube-shaped instrument with a light and camera at the end. After the procedure, it is common to have some soreness or pain in your abdomen and urethra. Watch for any blood in your urine. If the amount of blood in your urine increases, call your health care provider. If you were prescribed an antibiotic medicine, take it as told by your health care provider. Do not stop taking the antibiotic even if you start to feel better. This information is not intended to replace advice given to you by your health care provider. Make sure you discuss any questions you have with your health care provider. Document Revised: 10/15/2021 Document Reviewed: 09/13/2020 [employer] Patient Education 2022 [employer]. 12/22/2022 14:01:32 Benign Prostatic Hyperplasia Benign Prostatic Hyperplasia Benign prostatic hyperplasia (BPH) is an enlarged prostate gland that is caused by the normal aging process. The prostate may get bigger as a man gets older. The condition is not caused by cancer. The prostate is a walnut-sized gland that is involved in the production of semen. It is located in front of the rectum and below the bladder. The bladder stores urine. The urethra carries stored urine out of the body. An enlarged prostate can press on the urethra. This can make it harder to pass urine. The buildup of urine in the bladder can cause infection. Back pressure and infection may progress to bladder damage and kidney (renal) failure. What are the causes? This condition is part of the normal aging process. However, not all men develop problems from this condition. If the prostate enlarges away from the urethra, urine flow will not be blocked. If it enlarges toward the urethra and compresses it, there will be problems passing urine. What increases the risk? This condition is more likely to develop in men older than 50 years. What are the signs or symptoms? Symptoms of this condition include: Getting up often during the night to urinate. Needing to urinate frequently during the day. Difficulty starting urine flow. Decrease in size and strength of your urine stream. Leaking (dribbling) after urinating. Inability to pass urine. This needs immediate treatment. Inability to completely empty your bladder. Pain when you pass urine. This is more common if there is also an infection. Urinary tract infection (UTI). How is this diagnosed? This condition is diagnosed based on your medical history, a physical exam, and your symptoms. Tests will also be done, such as: A post-void bladder scan. This measures any amount of urine that may remain in your bladder after you finish urinating. A digital rectal exam. In a rectal exam, your health care provider checks your prostate by putting a lubricated, gloved finger into your rectum to feel the back of your prostate gland. This exam detects the size of your gland and any abnormal lumps or growths. An exam of your urine (urinalysis). A prostate specific antigen (PSA) screening. This is a blood test used to screen for prostate cancer. An ultrasound. This test uses sound waves to electronically produce a picture of your prostate gland. Your health care provider may refer you to a specialist in kidney and prostate diseases (urologist). How is this treated? Once symptoms begin, your health care provider will monitor your condition (active surveillance or watchful waiting). Treatment for this condition will depend on the severity of your condition. Treatment may include: Observation and yearly exams. This may be the only treatment needed if your condition and symptoms are mild. Medicines to relieve your symptoms, including: ?Medicines to shrink the prostate. ?Medicines to relax the muscle of the prostate. Surgery in severe cases. Surgery may include: ?Prostatectomy. In this procedure, the prostate tissue is removed completely through an open incision or with a laparoscope or robotics. ?Transurethral resection of the prostate (TURP). In this procedure, a tool is inserted through the opening at the tip of the penis (urethra). It is used to cut away tissue of the inner core of the prostate. The pieces are removed through the same opening of the penis. This removes the blockage. ?Transurethral incision (TUIP). In this procedure, small cuts are made in the prostate. This lessens the prostate's pressure on the urethra. ?Transurethral microwave thermotherapy (TUMT). This procedure uses microwaves to create heat. The heat destroys and removes a small amount of prostate tissue. ?Transurethral needle ablation (TUNA). This procedure uses radio frequencies to destroy and remove a small amount of prostate tissue. ?Interstitial laser coagulation (ILC). This procedure uses a laser to destroy and remove a small amount of prostate tissue. ?Transurethral electrovaporization (TUVP). This procedure uses electrodes to destroy and remove a small amount of prostate tissue. ?Prostatic urethral lift. This procedure inserts an implant to push the lobes of the prostate away from the urethra. Follow these instructions at home: Take qzrd-wtc-ajqcpve and prescription medicines only as told by your health care provider. Monitor your symptoms for any changes. Contact your health care provider with any changes. Avoid drinking large amounts of liquid before going to bed or out in public. Avoid or reduce how much caffeine or alcohol you drink. Give yourself time when you urinate. Keep all follow-up visits. This is important. Contact a health care provider if: You have unexplained back pain. Your symptoms do not get better with treatment. You develop side effects from the medicine you are taking. Your urine becomes very dark or has a bad smell. Your lower abdomen becomes distended and you have trouble passing urine. Get help right away if: You have a fever or chills. You suddenly cannot urinate. You feel light-headed or very dizzy, or you faint. There are large amounts of blood or clots in your urine. Your urinary problems become hard to manage. You develop moderate to severe low back or flank pain. The flank is the side of your body between the ribs and the hip. These symptoms may be an emergency. Get help right away. Call 911. Do not wait to see if the symptoms will go away. Do not drive yourself to the hospital. Summary Benign prostatic hyperplasia (BPH) is an enlarged prostate that is caused by the normal aging process. It is not caused by cancer. An enlarged prostate can press on the urethra. This can make it hard to pass urine. This condition is more likely to develop in men older than 50 years. Get help right away if you suddenly cannot urinate. This information is not intended to replace advice given to you by your health care provider. Make sure you discuss any questions you have with your health care provider. Document Revised: 08/20/2021 Document Reviewed: 08/20/2021 [employer] Patient Education 2022 [employer]. Follow Up Care 10/20/2022 09:15:26 With:BRADLY THOMPSON, PRICILLA Nix, URL Address: [address] [place] [address] [facility] [place] [address] [phone] When: Unknown Comments:sched cysto/TRUS [facility] 12-22-2022 Note Urology Cystoscopy Cystoscopy is a procedure that is used to help diagnose and sometimes treat conditions that affect the lower urinary tract. The lower urinary tract includes the bladder and the urethra. The urethra is the tube that drains urine from the bladder. Cystoscopy is done using a thin, tube-shaped instrument with a light and camera at the end (cystoscope). The cystoscope may be hard or flexible, depending on the goal of the procedure. The cystoscope is inserted through the urethra, into the bladder. Cystoscopy may be recommended if you have: ? Urinary tract infections that keep coming back. ? Blood in the urine (hematuria). ? An inability to control when you urinate (urinary incontinence) or an overactive bladder. ? Unusual cells found in a urine sample. ? A blockage in the urethra, such as a urinary stone. ? Painful urination. ? An abnormality in the bladder found during an intravenous pyelogram (IVP) or CT scan. Cystoscopy may also be done to remove a sample of tissue to be examined under a microscope (biopsy). Tell a health care provider about: ? Any allergies you have. ? All medicines you are taking, including vitamins, herbs, eye drops, creams, and oeyk-toe-uyolxnl medicines. ? Any problems you or family members have had with anesthetic medicines. ? Any blood disorders you have. ? Any surgeries you have had. ? Any medical conditions you have. ? Whether you are or may be . What are the risks? Generally, this is a safe procedure. However, problems may occur, including: ? Infection. ? Bleeding. ? Allergic reactions to medicines. ? Damage to other structures or organs. What happens before the procedure? Medicines Ask your health care provider about: ? Changing or stopping your regular medicines. This is especially important if you are taking diabetes medicines or blood thinners. ? Taking medicines such as aspirin and ibuprofen. These medicines can thin your blood. Do not take these medicines unless your health care provider tells you to take them. ? Taking cqfr-lti-fmewjcn medicines, vitamins, herbs, and supplements. Tests You may have an exam or testing, such as: ? X-rays of the bladder, urethra, or kidneys. ? CT scan of the abdomen or pelvis. ? Urine tests to check for signs of infection. General instructions ? Follow instructions from your health care provider about eating or drinking restrictions. ? Ask your health care provider what steps will be taken to help prevent infection. These steps may include: ? Washing skin with a germ-killing soap. ? Taking antibiotic medicine. ? Plan to have a responsible adult take you home from the hospital or clinic. What happens during the procedure? ? You will be given one or more of the following: ? A medicine to help you relax (sedative). ? A medicine to numb the area (local anesthetic). ? The area around the opening of your urethra will be cleaned. ? The cystoscope will be passed through your urethra into your bladder. ? Germ-free (sterile) fluid will flow through the cystoscope to fill your bladder. The fluid will stretch your bladder so that your health care provider can clearly examine your bladder rm. ? Your doctor will look at the urethra and bladder. Your doctor may take a biopsy or remove stones. ? The cystoscope will be removed, and your bladder will be emptied. The procedure may vary among health care providers and hospitals. What can I expect after the procedure? After the procedure, it is common to have: ? Some soreness or pain in your abdomen and urethra. ? Urinary symptoms. These include: ? Mild pain or burning when you urinate. Pain should stop within a few minutes after you urinate. This may last for up to 1 week. ? A small amount of blood in your urine for several days. ? Feeling like you need to urinate but producing only a small amount of urine. Follow these instructions at home: Medicines ? Take qeca-lvi-zltoucv and prescription medicines only as told by your health care provider. ? If you were prescribed an antibiotic medicine, take it as told by your health care provider. Do not stop taking the antibiotic even if you start to feel better. General instructions ? Return to your normal activities as told by your health care provider. Ask your health care provider what activities are safe for you. ? If you were given a sedative during the procedure, it can affect you for several hours. Do not drive or operate machinery until your health care provider says that it is safe. ? Watch for any blood in your urine. If the amount of blood in your urine increases, call your health care provider. ? Follow instructions from your health care provider about eating or drinking restrictions. ? If a tissue sample was removed for testing (biopsy) during your procedure, it is up to you to get your test results. Ask your health care provider, or the department th (more content not included)... [facility] 12-17-2020 Evaluation note Encounter Date Diagnosis Assessment Notes Dec, Primary osteoarthritis, right hand (ICD-10 - M19.041) Patient's most bothersome complaint is the pain in his PIP joints. Patient was encouraged to continue with the antiinflammatory medications, tumeric, and topical pain cream as needed for pain relief. Should his symptoms become more bothersome, we discussed considering an additional medrol dose pack. It was further explained, should his symptoms become more focal, we could considering further treatment options such as injections. We will follow up with the patient on an as needed basis. 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) [facility] Other Evaluation + Plan note No data available for this section [facility] evaluation + Plan note Future Appointments Appointment Date:02/04/2023 09:30:00 AM Scheduled Provider: Location:[facility] Appointment Type:Urology CALL PAT FT Appointment Date:02/11/2023 09:15:00 AM Scheduled Provider: Location:[facility] Appointment Type:Urology FT [facility] Evaluation + Plan note Future Appointments Appointment Date:02/16/2023 02:40:00 PM Scheduled Provider:PRICILLA ABDULLAHI PA-C Location:[facility] Future Appointments Appointment Date:04/13/2023 02:00:00 PM Scheduled Provider:PRICILLA ABDULLAHI PA-C Location:[facility] Appointment Type:URO Office Visit [facility] evaluation note* Diagnosis Onset Date Resolution Status Hypercholesterolemia acute Hypothyroidism acute Screening PSA (prostate specific antigen) [facility] Work Phone: Hisjrbw general Narrative - Reported* Type Description Date Medical History hypercholesterolemia 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 Surgical History Left knee arthroscopy Surgical History shoulder arthroscopy LEFT [facility] Other Hospital Discharge instructions No data available for this section [facility] Progress note No data available for this section [facility] Assessments Diagnosis Meniere's disease of left ear Meniere's disease, unspecified Diagnosis Meniere's disease of left ear Meniere's disease, unspecified Summary Purpose Family History Relationship Condition Age at Onset Recorded Date/T krystina Not Specified No pertinent family history Unknown father Unknown Not Specified Unknown Advance Directives Advance Directive Response Recorded Date/ Time Advance Directives No August 04 8:16am Chief Complaint and Reason for Visit Chief Complaint wellness Reason for Visit Hypercholesterolemia Hypothyroidism Screening PSA (prostate specific antigen) Additional Source Comments Reason for Visit (unrecogniz ed section and content) Reason Comments Medication Refill Reason Comments Medical Records (unrecognized sect ion and content) No Status Records FoundNo Status Records Found INFORMATION SOURCE (unrecogn ized section and content) DATE CREATED AUTHOR 08/16/2021 [facility] DATE CREATED AUTHOR AUTHOR'S ORGANIZ ATION 04/03/2023 [facility] Patient Care team informatio n (unrecognized section and content) Team Status: Active Member Role Status Dates Tasha Lancaster MD Primary Care Provider Active Team Status: Inactive Member Role Status Dates Tasha Lancaster MD Primary Care Provide r, Attending Provider Active Start: August 05, 2023 End: August 05, 2023 Goals (unrecognized section and content) Goals may be documented in a n alternate section FOR RECORDS PERTAINING TO PATIENTS WHO ARE OR HAVE BEEN ENROLLED IN A CHEMICAL DEPENDENCY/SUBSTANCEABUSE PROGRAM, SOME INFORMATION MAY BE OMITTED. This clinical summary was aggregated from multiple sources. Caution should be exercised in using it in the provision of clinical care. This summary normalizes information from multiple sources, and as a consequence, information in this document may materially change the coding, format and clinical context of patient data. In addition, data may be omitted in some cases. CLINICAL DECISIONS SHOULD BE BASED ON THE PRIMARY CLINICAL RECORDS. [employer] provides no warranty or guarantee of the accuracy or completeness of information in this document.
[2023-11-05 10:48] LABS: Free T4 1.07 ng/dL (0.76-1.46)
[2023-11-05 10:49] LABS: Thyroid Stimulating Hormone 2.429 uIU/mL (0.358-3.740)
== END 2023-11-05 09:20 | disposition home or self-care (01) ==
LOC: LAB 09:21
PROVIDERS: PCP Family Medicine; Visit Provider Family Medicine
DX: E03.9 Hypothyroidism, unspecified (principal)
CPT/HCPCS: 36415; 84439; 84443

== ENCOUNTER 2023-12-27 12:22 | Outpatient (OUT) | payer MEDICARE, OTHER, SELFPAY ==
--- NOTE | 2023-12-27 12:28 | XR_ITS ---
The [address] [address] Patient Name: FLORI WALLER MRN: [id number] date: 1955 Sex: M Assigned Patient Location: RAD Current Patient Location: RAD Accession/Order Number: [id number] Exam Date: 12/27/2023 12:29 Report Date: 12/27/2023 15:11 At the request of: KALEN LANCASTER Procedure: XR chest 2V PROCEDURE: XR chest 2V DATE: 12/27/2023 12:29 PM EST COMPARISONS: Chest CT from 09/08/2019 CLINICAL INDICATION: 68 years Male Covid 19; U07.1 FINDINGS: The cardiomediastinal silhouette and pulmonary vasculature are within normal limits. There are a few scattered tiny subcentimeter granulomata, stable. The lungs are otherwise clear. No consolidating infiltrates to suggest pneumonia. There is no evidence of pleural effusion or pneumothorax. XR/XR chest 2V IMPRESSION: Chest radiograph is essentially within normal limits. Electronically authenticated by: QASIM CHAPARRO Date: 12/27/2023 15:11
--- OUTSIDE RECORDS SUMMARY | 2023-12-27 12:40 | XMS_ITS | CCD ---
Author Organization [facility] Care Team Providers Care Route Specialist Name Role Phone Unavailable Primary Care Provider UnavailAreli Arteaga Unavailable KENNETH, DR CHOWDHURY Attending Unavailable MADISON, DR CHOWDHURY Consulting Unavailable MADISON, DR CHOWDHURY Primary Care Unavailable MADISON, DR CHOWDHURY Admitting Unavailable TASHA LANCASTER Primary Care Physician Jesse COVARRUBIAS Attending Unavailable Jesse COVARRUBIAS Attending Unavailable PRICILLA ABDULLAHI Attending Unavailable PRICILLA ABDULLAHI Referring Unavailable BRADLYPRICILLA ELKINS Attending Unavailable TASHA LANCASTER Referring Unavailable BRADLY, PRICILLA Wild Attending Unavailable BRADLY, PRICILLA Wild Referring Unavailable BRADLY, PRICILLA Wild Attending Unavailable Jesse COVARRUBIAS Admitting Unavailable Jesse COVARRUBIAS Attending Unavailable Jesse COVARRUBIAS Referring Unavailable VALENTINE ARGUELLO Attending Unavailable Unavailable Primary Care Provider Unavaillennox wild Allergies Allergy Classification Reported Allergen(s) Allergy Type Date of Onset Reaction(s) Facility Bumetanide (1 source) Bumetanide Drug Allergy 08-05-19 [facility] Furosemide (1 source) Furosemide Drug Allergy 08-05-19 [facility] Quinolones (antibiotic) (1 source) levoFLOXacin Drug Allergy 08-05-19 [facility] Spironolactone (1 source) Spironolactone Drug Allergy 08-05-19 [facility] (5 sources) Triamterene Drug Allergy 12-19-19 [facility] Work Phone: (1 source) Furosemide Drug Allergy Unknown [facility] Other (1 source) Bumetanide Drug Allergy 09-08-19 [facility] (1 source) Furosemide Drug Allergy 09-08-19 20 [facility] (1 source) Spironolactone Drug Allergy 09-08-19 20 [facility] (10 sources) hydroCHLOROthiazide / Triamterene; Translations: [hydrochlorothiazide-t riamterene] Drug Allergy Lethargy (finding) [facility] (3 sources) Triamterene Drug Allergy 12-19-19 16 [facility] Medications Current Medications Medication Drug Class(es) Dates Sig (Normalized) Sig (Original) acetaminophen 325 mg / HYDROcodone bitartrate 5 mg oral tablet (3 sources) Opioid Agonist Start: 01-08-2023 take 1 tablet by mouth every six hours as needed for pain, then take 5 tablets by mouth every hour as needed for pain Omaha 325 mg-5 mg oral tablet 1 tab(s), Oral, q6hr as needed for pain, 5 tab(s), Refill(s) 0, Take 1 hour prior to procedure., [facility], 185, cm, 01/08/23 8:46:00 EST, Height/Length Dosing, 89.5, kg, 01/08/23 8:46:00 EST, Weight Dosing Start Date: 01/08/23 Status: Ordered Aspirin (19 sources) Platelet Aggregation Inhibitor, Nonsteroidal Anti-inflammatory Drug Start: 12-22-2022 aspirin Refills(s) 0 Start Date: 12/22/22 Status: Ordered Start: 09-08-2019 take 1 tablet by benigno th once daily Aspirin (Aspir-81) 81 mg Tablet,Delayed Release (Dr/Ec) Active 81 MG PO Daily September 08, 2019 12:00am aspirin 81 MG ch ewable tablet Chew 81 mg in the morning. Active take 1 tablet by benigno th once daily Aspirin 81 81 MG 1 tablet Orally Once a day Active ciprofloxacin 500 mg oral tablet (4 sources) Quinolone Antimicrobial Start: 01-08-2023 End: 01-11-2023 take 1 tablet by mouth twice daily Cipro 500 mg Tab 500 mg = 1 tab(s), Oral, BID, Start the day prior to procedure., X 3 day(s), # 6 tab(s), Refills(s) 0, Pharmacy: [facility], 185, cm, 01/08/23 8:46:00 EST, Height/Length Dosing, 89.5, kg, 01/08/23 8:46:00 EST, Weight Dosing Start Date: 01/08/23 Stop Date: 01/11/23 Status: Ordered Start: 12-23-2022 Cipro 500 mg T ab See Instructions, Take 1 tab day prior to procedure and 1 tab day of procdure - afterwards, # 2 tab(s), Refills(s) 0, Pharmacy: [facility], 185, cm, 12/22/22 13:39:00 EST, Height/Length Dosing, 89.5, kg, 12/22/22 13:39:00 EST, Weight Dosing Start Date: 12/23/22 Status: Ordered diazePAM 10 mg oral tablet (3 sources) Benzodiazepine Start: 01-08-2023 Valium 10 mg Tab 10 mg = 1 tab(s), Oral, Once, Take 30 minutes prior to procedure, # 1 tab(s), Refills(s) 0, Pharmacy: [facility], 185, cm, 01/08/23 8:46:00 EST, Height/Length [...] Discontinued levothyroxine sodium 0.05 mg oral tablet (19 sources) l-Thyroxine Start: 12-16-2022 Synthroid 50 m [...] empty stomach Orally Once a day Active magnesium gluconate 550 mg oral tablet (3 sources) take 1 tablet by mouth in the morning magnesium 30 MG tablet Take 30 mg by mouth in the morning and 30 mg before bedtime. Active magnesium oxide 250 mg oral tablet (9 sources) Start: 3 take 1 mg by mouth once daily magnesium oxide 250 mg oral tablet mg tab(s), Oral, Daily, Refills(s) 0 Start Date: 12/22/22 Status: Ordered Medrol Dose Pack as directed (1 source) Start: 1 Medrol Dose Pack as directed as directed orally as directed Oct, Active naproxen sodium 220 mg oral capsule (2 sources) Nonsteroidal Anti-inflammatory Drug Start: 4 take 1 capsule by mouth every twelve [...] discomfort, # 60 tab(s), Refills(s) 0, Pharmacy: [facility], 185, cm, 01/08/23 8:46:00 EST, Height/Length Dosing, 89.5, kg, 01/08/23 8:46:00 EST, Weight Dosing Start Date: 01/08/23 Status: Ordered rosuvastatin calcium 5 mg oral tablet (19 sources) HMG-CoA Reductase Inhibitor Start: 09-08-2019 rosuvastatin 5 mg Tab 90 tab(s), 0 Refill(s), Refills(s) 0 Start Date: 12/16/22 Status: Ordered Saw Cranbury (1 source) Saw Cranbury Act kathe saw palmetto (Serenoa repens) 80 MG capsule (3 sources) saw palmetto (Serenoa repens) 80 MG capsule Saw Cranbury Active Saw Cranbury (5 sources) Start: 08-04-2023 take 160 mg by mouth twice daily Saw Cranbury Active 160 MG PO Twice daily August 04, 2023 12:00am give with meal/snack Start: 12-22-2022 saw palmetto O ral, Refill(s) 0 Start Date: 12/22/22 Status: Ordered tamsulosin hydrochloride 0.4 mg oral capsule (13 sources) alpha-Adrenergic Karin Start: 08-04-2023 take 1 capsule by mouth once daily Tamsulosin Active 1 CAP PO Daily August 04, 2023 12:00am FreeTextSi capsule Orally Once a day; Note: Source Status: Taking; Provider: Raffaele Cordova ( ) Start: 12-16-2022 tamsulosin 0.4 mg Cap 90 cap(s), 0 Refill(s), Refills(s) 0 Start Date: 12/16/22 Status: Ordered Start: 10-03-2022 tamsulosin (Fl omax) 0.4 MG 24 hr capsule 10/03/2022 Active take 1 capsule by [facility] every twenty-four hours Flomax 0.4 MG 1 capsule Orally Once a day Active TURMERIC CURCUMIN PO (3 sources) TURMERIC CURCUMI N PO Turmeric Curcumin Active Turmeric extract (10 sources) Start: 08-04-2023 Turmeric Activ e MG PO August 04, 2023 12:00am Start: 12-22-2022 Turmeric Oral, Daily, Refill(s) 0 Start Date: 12/22/22 Status: Ordered Vitamin D3 (9 sources) Start: 12-22-2022 Vitamin D3 Ref ills(s) 0 Start Date: 12/22/22 Status: Ordered Completed/Discontinued Medications Medication Drug Class(es) Dates Sig (Normalized) Sig (Original) cholecalciferol 0.025 mg oral capsule (10 sources) Vitamin D Start: 08-04-2023 End: 08-05-2023 take 25 ug by mouth once daily Cholecalciferol (Vitamin D3) Discontinued 25 MCG PO Daily August 04, 2023 12:00am August 05, 2023 8:35am cholecalciferol (Vitamin D-3) 50 MCG (2000 UT) tablet Take by mouth. Active take 1 tablet by benigno th every twenty-four hours Vitamin D 25 MCG [...] hypertrophy with outflow obstruction] Onset: 08-15-2021 Chronic Neoplasms of unspecified nature or uncertain behavior (2 sources) Neoplastic disease; Translations: [Neoplasm of unspecified behavior of bone, soft tissue, and skin] 11-30-2023 Episodic Osteoarthritis (13 sources) Osteoarthritis of joint of left hand; Translations: [Primary osteoarthritis, left hand] Onset: 12-17-2020 Resolved: 12-17-2020 Chronic Other and unspecified benign neoplasm (2 sources) Melanocytic nevus of trunk; Translations: [Melanocytic nevi of trunk] 11-30-2023 Episodic Other circulatory disease (2 sources) Spider nevus; Translations: [Nevus, non-neoplastic] 11-30-2023 Episodic Other diseases of kidney and ureters (1 source) Urinary tract obstruction; Translations: [Other obstructive and reflux uropathy] Onset: 02-11-2023 Episodic Other ear and sense organ disorders (5 sources) Asymmetrical hearing loss; Translations: [Asymmetrical hearing loss of left ear] Onset: 12-24-2015 12-24-2015 Chronic Other ear and sense organ disorders (9 sources) Deafness of left ear 12-16-2022 Chronic Other non-epithelial cancer of skin (2 sources) History of malignant basal cell neoplasm of skin; Translations: [Personal history of other malignant neoplasm of skin] 11-30-2023 Episodic Other screening for suspected conditions (not mental disorders or infectious disease) (7 sources) Encounter for screening for malignant neoplasm of prostate; Translations: [Screening for malignant neoplasm done] Onset: 12-22-2022 Episodic Other skin disorders (2 sources) Seborrheic keratosis; Translations: [Other seborrheic keratosis] 11-30-2023 Episodic Other skin disorders (2 sources) Lentiginosis; Translations: [Other melanin hyperpigmentation] 11-30-2023 Episodic Other skin disorders (2 sources) Inflamed seborrheic keratosis; Translations: [Inflamed seborrheic keratosis] 11-30-2023 Episodic Other skin disorders (2 sources) Actinic keratosis; Translations: [Actinic keratosis] 11-30-2023 Episodic Other skin disorders (2 sources) Bacterial folliculitis; Translations: [Other specified follicular disorders] 11-30-2023 Episodic Thyroid disorders (15 sources) Hypothyroidism, unspecified; [...] Test Name Value Interpretation Reference Range Facility No Panel Informationon 11-29 Type of biopsy: tangential Informed consent: discussed and consent obtained Informed consent comment: The risks and benefits of the biopsy were discussed. Risks include but are not limited to bleeding, infection, scarring, pain, and nerve damage. An opportunity to ask questions prior to the procedure was permitted and all questions were answered. Patient was prepped and draped in usual sterile fashion: area cleansed with alcohol. Anesthesia: the lesion was anesthetized in a standard fashion Anesthetic: 1% lidocaine w/ epinephrine 1-100,000 buffered w/ 8.4% NaHCO3 Instrument used: DermaBlade Hemostasis achieved with: electrodesiccation Outcome: patient tolerated procedure well Outcome comment: The specimen was placed in a prelabeled formalin container to be sent for pathology Post-procedure details: sterile dressing applied and wound care instructions given Post-procedure details comment: Emphasized need to contact clinic for any signs of infection, uncontrollable bleeding, or complications. Dressing type: bandage Additional details: Photo taken Amount of lidocaine used: 0.5 cc [facility] Amorcyte Type of biopsy: tangential Informed consent: discussed and consent obtained Informed consent comment: The risks and benefits of the biopsy were discussed. Risks include but are not limited to bleeding, infection, scarring, pain, and nerve damage. An opportunity to ask questions prior to the procedure was permitted and all questions were answered. Patient was prepped and draped in usual sterile fashion: area cleansed with alcohol. Anesthesia: the lesion was anesthetized in a standard fashion Anesthetic: 1% lidocaine w/ epinephrine 1-100,000 buffered w/ 8.4% NaHCO3 Instrument used: DermaBlade Hemostasis achieved with: electrodesiccation Outcome: patient tolerated procedure well Outcome comment: The specimen was placed in a prelabeled formalin container to be sent for pathology Post-procedure details: sterile dressing applied and wound care instructions given Post-procedure details comment: Emphasized need to contact clinic for any signs of infection, uncontrollable bleeding, or complications. Dressing type: bandage Additional details: Photo taken Amount of lidocaine used: 0.5 cc [facility] Ambulatory Visit Summaryon 0 02-16-2023 Ambulatory Visit Summary FLORI WALLER :1955 Visit Date:02/16/2023 Ambulatory Visit Instructions Your Diagnosis BPH with obstruction/lower urinary tract symptoms Prostate cancer screening Tests Performed Urnls Dip Stick Auto w/o Microscopy POC 42688 Your Care Team Attending Physician - PRICILLA [...] Cap) [Image Removed: STOP]Stop taking these medications acetaminophen-hydrocodo ne (Omaha 325 mg-5 mg oral tablet) ciprofloxacin (Cipro 500 mg Tab) diazepam (Valium 10 mg Tab) oxybutynin (oxybutynin 5 mg Tab) mary maloney Procedures Performed Cystoscopy (01/08/2023), Arthroscopy of knee, Arthroscopy of shoulder, Colonoscopy, Tonsillectomy, TRUS - Transrectal ultrasonography. Discharge Vitals Heart Rate (Peripheral) 82 Blood Pressure 118/78 Height 185 cm Height 73 in Weight 89.5 kg Weight 196.9 lb BMI 26.15 What to do next Scheduled Follow-Up Appointments Wednesday 2:00 PM EST With: PRICILLA ABDULLAHI PA-C Where: [facility] Patient Educationon 02-16-19 Patient Education Urology Benign [...] Follow these instructions at home: ? Take [id number] and prescription medicines only as told by [...] the medicine (more content not included)... Normal [facility] Urology Office/Clinic Noteon 02-16-2023 Urology Office/Clinic Note Chief Complaint S/p to Cysto HPI Staff S/p to Urolift done @ [facility] 02/11/23- Previous DX; BPH, Taking Flomax 0.4 mg [...] needs to take this. IPSS 18 (18). [place] he never emptied prior to procedure. Was [...] With When Contact Information BRADLY THOMPSON, PRICILLA Wild, URL [address] [place] [address] [phone] Additional Instructions: 6 wks Patient Education Benign Prostatic Hyperplasia Documentation recorded by the consuelo Hickman accurately reflects the services(s) I performed and decisions made by me. Authenticated by Pricilla Abdullahi PA-C on 02/16/2023 16:27:50. I, Dayami Hickman, personally scribed for Pricilla Abdullahi PA-C on [...] oxide 250 mg oral tablet, Oral, Daily Omaha 325 mg-5 mg oral tablet, 1 tab(s), Oral, q6hr, PRN, Not taking oxybutynin 5 mg Tab, 5 mg= 1 tab(s), Oral, BID, PRN rosuvastatin 5 mg Tab saw amara, Oral Synthroid 50 mcg Tab tamsulosin 0.4 [...] 14:55:00) Blood Urin (more content not included)... [facility] Comment on above: Result Comment: Elec tronically Signed By: PRICILLA ABDULLAHI PA-C\.br\Date and Time Signed: 02/16/23 16:27 EST\.br\Electronically Co-Signed By: aDyami Hickman\.br\Date and Time Co-Signed: 02/16/23 15:49 EST Consent for Procedure/Surger yon 02-11-2023 Consent for Procedure/Surgery [id number]#[id number] TIFF [facility] Consent for Treatmenton 01-16 Consent for Treatment [id number] IFF [facility] Inpatient Patient Summaryon 02-11-2023 Inpatient Patient Summary [place] [id number] Clinical Summary Person Information Name: FLORI WALLER Age: 67 Years : 1955 Sex: Male PCP: TASHA LANCASTER MD Marital Status: Race: White Ethnicity: Non- or Language: Cambodian Visit Id: Visit Reason: BPH WITH LUTS Speciality: Acuity: Enc Type: Outpatient Med Service: Surgery Arrival: 02/11/2023 08:42:26 Discharge: Dispo Type: Address: [address] [id number] Provider Notes: Diagnosis: Other obstructive and reflux [...] Immunizations Documented This Visit Final Med List: acetaminophen-hydrocodo ne (Omaha 325 mg-5 mg oral tablet) 1 Tablets [...] MD Follow up: With: Address: When: Jesse COVARRUBIAS [address], [address], [place] [address] [facility] (1) Within 1 to 2 weeks Comments: Call for followup appointment to remove the catheter. Stay on your Flomax (tamsulosin) for now. You may be seeing one of our nurse practitioners or physician assistants. Patient Education Information: [facility] - Urolift Post-Op Instructions (Custom) Normal [facility] IntraOperative Documentson 1 04-14-2022 IntraOperative Documents [id number] TIFF Normal [facility] Main OR Intraoperative Recor don 02-11-2023 Main OR Intraoperative Record IntraOp Document Type FTURO Summary Primary Physician: Jesse COVARRUBIAS MD Finalized Date/Time: 02/11/23 09:48:09 Pt. Name: FLORI WALLER Simón BettsB./Sex: 1955 Male Med Rec #: [id number] Physician: Jesse COVARRUBIAS MD Financial #: [id number] Pt. Type: O Room/Bed: / Admit/Disch: 02/11/23 08:42:26 - Institution: Case Times FTURO Entry 1 Patient Times In Room 02/11/23 09:07:00 Out Room 02/11/23 09:25:00 Procedure Times Start 02/11/23 09:10:00 Stop 02/11/23 09:21:00 Anesthesia Times Last Modified By: Aury GODINEZ, Renetta Valdez 02/11/23 09:21:24 General Comments: 18FR COUDE DE LA PAZ CATHETER TO LEG BAG INSERTED BY DR.COOK Nilton ULLOA,HERBERT Case Attendance FTURO Entry 1 Entry 2 Entry 3 Case Attendee Jesse COVARRUBIAS MD, RN, Edison Bynum Role Performed Surgeon - Primary Ship Liner - Primary Scrub - Primary Time In 02/11/23 09:07:00 02/11/23 09:07:00 02/11/23 09:07:00 Time Out 02/11/23 09:25:00 02/11/23 09:25:00 02/11/23 09:25:00 Procedure CYSTOSCOPY LOCAL CYSTOSCOPY LOCAL CYSTOSCOPY LOCAL UROLIFT(.) UROLIFT(.) UROLIFT(.) Comments Last Modified By: Aury GODINEZ, Renetta Ulloa RN, Renetta Ulloa RN, Renetta Valdez 02/11/23 Gilda Valdez 02/11/23 Gilda Valdez 02/11/23 09:21:28 09:21:28 09:21:28 Entry 4 Case [...] LUTS Outcomes Met? Yes Last Modified By: Rneetta Ulloa RN 02/11/23 08:49:25 Post-Care Text: The [...] Position Verified Availability Equipment, Implant, Time Out Jesse COVARRUBIAS MD, Verified (If Medication Participants Aury GODINEZ, Renetta Applicable) Dang Burnett Adam A, McClain CST, Kimberly A Time Out Complete 02/11/23 09:08:00 Allergies Reviewed? [...] CARTRIDGE CARTRIDGE CARTRIDGE Serial Number Lot Number [id number] Frame Opener NEOTRACT NEOTRACT NEOTRACT Catalog ?# UL2-CHK UL2-C UL2-C Size Expiration Date 09/30/24 07/29/24 09/16/24 Usage Data Implant Site PROSTATE PROSTATE PROSTATE Quantity 1 1 4 Temperature Reconstitution Method Outcomes Met? Yes Yes Yes Last Modified By: Aury GODINEZ, Renetta Ulloa RN, Renetta Ulloa RN, Renetta Valdez 02/11/23 Gilda Valdez 02/11/23 Gilda Valdez 02/11/23 09:16:28 09:16:28 09:21:45 Post-Care Text: The patient is free from signs and symptoms of injury caused by extraneous objects Sign Out FTURO Entry 1 Before Patient Leaves OR Nurse verbally Yes Nurse verbally Yes confirms with the confirms with the team the name of team that the pro (more content not included)... Normal [facility] Main OR Preoperative Recordo n 02-11-2023 Main OR Preoperative Record Holding Area Document Type FTURO Summary Primary Physician: Jesse COVARRUBIAS MD Finalized Date/Time: 02/11/23 08:52:30 Pt. Name: FLORI WALLER/Sex: 1955 Male Med Rec #: [id number] Physician: Jesse COVARRUBIAS MD Financial #: [id number] Pt. Type: O Room/Bed: / Admit/Disch: 02/11/23 [...] By: Henrietta Childress RN 02/11/23 08:52 Normal [facility] Operative Reporton Operative Report Patient: EFRAIN WALLER [...] procedure (10 mg diazepam, 5/325 mg of Omaha), Local Anesthesia (60cc 2% Xylocaine liquid inserted [...] the time of this dictation. . Normal [facility] Comment on above: Result Comment: Elec tronically Signed By: Jesse COVARRUBIAS MD\.br\Date and Time Signed: 02/11/23 09:28 EST Outpatient Surgery Discharge Instructionon 02-11-2023 Outpatient Surgery Discharge Instruction [address] [address] Patient Discharge Instructions PERSON INFORMATION [...] Follow up: With: Address: When: Jesse COVARRUBIAS [address] [place] [address], [address], [address] [address] Business (1) Within 1 to 2 weeks Comments: Call for followup appointment to remove the catheter. Stay on your Flomax (tamsulosin) for now. You may be seeing one of our nurse practitioners or physician assistants. Comment: PATIENT EDUCATION INFORMATION Instructions: [facility] [place] [place] Post-Operative Instructions for UroLift After your [...] your partner. This will resolve with time. Frequency/urgency/burni ng with urination is very common. This is [...] were given Patient Signature Date Clinican/Nurse Signature _ Date You may receive a survey from [employer] asking you to rate your care experience. Your feedback is important and will help us understand what we do well and how we can improve the qual (more content not included)... Normal [facility] Patient Educationon 02-12-20 23 Patient Education [facility] [place] [place] Post-Operative Instructions for UroLift After your [...] your partner. This will resolve with time. Frequency/urgency/burni ng with urination is very common. This is [...] like the bladder is not emptying. Normal [facility] Consent for Procedure/Surger yon 01-11-2023 Consent for Procedure/Surgery [id number] IFF [facility] Ambulatory Visit Summaryon 03-10-2022 Ambulatory Visit Summary FLORI WALLER DOB:1955 Visit Date:01/08/2023 Ambulatory Visit Instructions Your Diagnosis [...] oral tablet) rosuvastatin (rosuvastatin 5 mg Tab) saw palmetto tamsulosin (tamsulosin 0.4 mg Cap) Procedures Performed [...] URL When: Comments: Sched UroLift Where: [address] [place] [address]- Medications What How Much When Instructions Unchanged [...] for choosing us for your care. Normal [facility] Consenton 01-08-2023 Consent [id number] FF Normal [facility] Urology Office/Clinic Noteon 01-08-2023 Urology Office/Clinic Note [...] prior. Pt acknowledges understanding. -Cont Tamsulosin and saw palmetto. Will d/c in future. -Will schedule Urolift. [...] order Local anesthesia. -Will send Cipro 500mg, Omaha 325mg, Valium 10mg and Oxybutynin 5mg to pharm on file. Discussed the medication side effects, and the patient will monitor closely for these, as well as for symptom improvement. If severe side effects occur, the medication should be stopped and the office notified. -Pt will need a dedicated regional driver for the Valium 10mg. 2. Prostate [...] but he (more content not included)... [facility] Comment on above: Result Comment: Elec tronically Signed By: Jesse COVARRUBIAS MD\.br\Date and Time Signed: 01/08/23 09:45 EST\.br\Electronically Co-Signed By: Verona Hector\.br\Date and Time Co-Signed: 01/08/23 09:41 EST Physician Referralon 023 Physician Referral [id number] TIFF Normal [facility] Screenson 12-23-2022 Screens [id number] IFF Normal [facility] CBC AUTO DIFFon 08-12-2021 BASO # 0.0 103/ul Normal 0.0-0.1 [facility] Comment on above: Performed By: #### C BC #### [facility] [address] [place] [address] Dr. Chucho Mayberry Basophils/100 WBC (Bld) 0.7 % Normal 0.2-2.0 [facility] Comment on above: Performed By: #### C BC #### [facility] [address] [place] [address] Dr. Chucho Mayberry EO # 0.2 103/ul Normal 0.0-0.7 [facility] Comment on above: Performed By: #### C BC #### [facility] [address] [place] [address] Dr. Chucho Mayberry Eosinophils/100 WBC (Bld) 5.0 % Normal 0.9-7.0 [facility] Comment on above: Performed By: #### C BC #### [facility] [address] [place] [address] Dr. Chucho Mayberry Erythrocyte distribution width (RBC) [Ratio] 13.2 % Normal 11.0-15.0 [facility] Comment on above: Performed By: #### C BC #### [facility] [address] [place] [address] Dr. Chucho Mayberry Hematocrit (Bld) [Volume fraction] 40.6 % Critically low 42.0-54.0 [facility] Comment on above: Performed By: #### C BC #### [facility] [facility] [address] [place] [address] Dr. Chucho Mayberry Hemoglobin (Bld) [Mass/Vol] 13.6 g/dL Critically low 14.0-18.0 [facility] Comment on above: Performed By: #### C BC #### [facility] [address] [place] [address] Dr. Chucho Mayberry IG # 0.01 10e3/ul Normal 0.00-0.03 [facility] Comment on above: Performed By: #### C BC #### [facility] [address] [place] [address] Dr. Chucho Mayberry IG % 0.2 % Normal 0.0-0.5 [facility] Comment on above: Performed By: #### C BC #### [facility] [address] [place] [address] Dr. Chucho Mayberry LYMPH # 1.1 103/ul Critically low 1.2-3.8 [facility] Comment on above: Performed By: #### C BC #### [facility] [address] [place] [address] Dr. Chucho Mayberry Lymphocytes/100 WBC (Bld) 24.9 % Normal 20.5-60.0 [facility] Comment on above: Performed By: #### C BC #### [facility] [address] [place] [address] Dr. Chucho Mayberry MANUAL DIFF REQ NO Normal [facility] Comment on above: Performed By: #### C BC #### [facility] [address] [place] [address] Dr. Chucho Mayberry MCH (RBC) [Entitic mass] 31.1 pg Normal 25.9-34.0 [facility] Comment on above: Performed By: #### C BC #### [facility] [address] [place] [address] Dr. Chucho Mayberry MCHC (RBC) [Mass/Vol] 33.5 g/dL Normal 29.9-35.2 [facility] Comment on above: Performed By: #### C BC #### [facility] [address] [place] [address] Dr. Chucho Mayberry MCV (RBC) [Entitic vol] 92.9 fL Normal 80.0-94.0 [facility] Comment on above: Performed By: #### C BC #### [facility] [address] [place] [address] Dr. Chucho Mayberry MONO # 0.5 103/ul Normal 0.3-0.8 [facility] Comment on above: Performed By: #### C BC #### [facility] [address] [place] [address] Dr. Chucho Mayberry Monocytes/100 WBC (Bld) 10.2 % Normal 1.7-12.0 [facility] Comment on above: Performed By: #### C BC #### [facility] [address] [place] [address] Dr. Chucho Mayberry NEUT # 2.6 103/ul Normal 1.4-6.5 [facility] Comment on above: Performed By: #### C BC #### [facility] [address] [place] [address] Dr. Chucho Mayberry Neutrophils/100 WBC (Bld) 59.0 % Normal 43.0-75.0 [facility] Comment on above: Performed By: #### C BC #### [facility] [address] [place] [address] Dr. Chucho Mayberry Platelet mean volume (Bld) [Entitic vol] 11.0 fL Normal 9.5-13.5 [facility] Comment on above: Performed By: #### C BC #### [facility] [address] [place] [address] Dr. Chucho Mayberry PLT 177 103/ul Normal 150-450 [facility] Comment on above: Performed By: #### C BC #### [facility] [address] [place] [address] Dr. Chucho Mayberry RBC 4.37 106/ul Critically low 4.70-6.10 [facility] Comment on above: Performed By: #### C BC #### [facility] [address] [place] [address] Dr. Chucho Mayberry WBC 4.4 103/ul Normal 4.0-11.0 [facility] Comment on above: Performed By: #### C BC #### [facility] [address] [place] [address] Dr. Chucho Mayberry LIPID PROFILEon 08-12-2021 CHOL-HDL RATIO NORM SEE BELOW Normal [facility] Comment on above: Result Comment: 3.3 - 4.4 LOW RISK 4.4 - 7.1 AVERAGE RISK 7.1 - 11.0 MODERATE RISK >11.0 HIGH RISK Performed By: #### T SH, LIPID, T4, CMP #### [facility] [address] [place] [address] Dr. Chucho Mayberry Cholesterol [Mass/Vol] 187 mg/dL Normal <=200 [facility] Comment on above: Performed By: #### T SH, LIPID, T4, CMP #### [facility] [address] [address] [address] Chucho Mayberry Cholesterol in HDL [Mass/Vol] 69 mg/dL Critically high 40-60 [facility] Comment on above: Performed By: #### T SH, LIPID, T4, CMP #### [facility] [address] [address] [address] Chucho Mayberry Cholesterol in LDL [Mass/Vol] 107.4 mg/dL Normal [facility] Comment on above: Performed By: #### T SH, LIPID, T4, CMP #### [facility] [address] [address] [address] Chucho Mayberry Cholesterol.total/C holesterol in HDL [Mass ratio] 2.7 {ratio} Normal [facility] Comment on above: Performed By: #### T SH, LIPID, T4, CMP #### [facility] [address] [address] [address] Chucho Mayberry HDL NORMAL > or = 60 mg/dl - LO W CARDIOVASCULAR RISK <40 mg/dl - HIGH CARDIOVASCULAR RISK Normal [facility] Comment on above: Performed By: #### T SH, LIPID, T4, CMP #### [facility] [address] [address] [address] Chucho Mayberry LDL CALC NORMAL SEE BELOW Normal [facility] Comment on above: Result Comment: <100 mg/dl OPTIMAL 100 - 129 mg/dl NEAR OR ABOVE OPTIMAL 130 - 159 mg/dl BORDERLINE HIGH 160 - 189 mg/dl HIGH >190 mg/dl VERY HIGH Performed By: #### T SH, LIPID, T4, CMP #### [facility] [address] [address] [address] Chucho Mayberry Triglyceride [Mass/Vol] 53 mg/dL Normal <=150 [facility] Comment on above: Performed By: #### T SH, LIPID, T4, CMP #### [facility] [address] [address] [address] Chucho Mayberry VLDL CALC 10.6 mg/dL Normal [facility] Comment on above: Performed By: #### T SH, LIPID, T4, CMP #### [facility] [address] [address] [address] Chucho Mayberry PROF 14(COMP METB)on 022 Albumin [Mass/Vol] 3.8 g/dL Normal 3.4-5.0 [facility] Comment on above: Performed By: #### T SH, LIPID, T4, CMP #### [facility] [address] [address] [address] Chucho Mayberry Albumin/Globulin [Mass ratio] 1.1 {ratio} Normal [facility] Comment on above: Performed By: #### T SH, LIPID, T4, CMP #### [facility] [address] [address] [address] Chucho Mayberry ALP [Catalytic activity/Vol] 87 U/L Normal 46-116 [facility] Comment on above: Performed By: #### T SH, LIPID, T4, CMP #### [facility] [address] [address] [address] Chucho Mayberry ALT [Catalytic activity/Vol] 21 U/L Normal 16-63 [facility] Comment on above: Performed By: #### T SH, LIPID, T4, CMP #### [facility] [address] [address] [address] Chucho Mayberry Anion gap [Moles/Vol] 10.5 mmol/L Normal [facility] Comment on above: Performed By: #### T SH, LIPID, T4, CMP #### [facility] [address] [address] [address] Chucho Mayberry AST [Catalytic activity/Vol] 19 U/L Normal 15-37 [facility] Comment on above: Performed By: #### T SH, LIPID, T4, CMP #### [facility] [address] [address] [address] Chucho Mayberry Bilirubin [Mass/Vol] 0.8 mg/dL Normal 0.2-1.0 [facility] Comment on above: Performed By: #### T SH, LIPID, T4, CMP #### [facility] [address] [address] [address] Chucho Mayberry Calcium [Mass/Vol] 8.7 mg/dL Normal 8.5-10.1 [facility] Comment on above: Performed By: #### T SH, LIPID, T4, CMP #### [facility] [address] [place] [address] Dr. Chucho Mayberry Chloride [Moles/Vol] 106 mmol/L Normal 98-107 [facility] Comment on above: Performed By: #### T SH, LIPID, T4, CMP #### [facility] [address] [place] [address] Dr. Chucho Mayberry CO2 [Moles/Vol] 28.7 mmol/L Normal 21.0-32.0 [facility] Comment on above: Performed By: #### T SH, LIPID, T4, CMP #### [facility] [address] [place] [address] Dr. Chucho Mayberry Creatinine [Mass/Vol] 1.17 mg/dL Normal 0.70-1.30 [facility] Comment on above: Performed By: #### T SH, LIPID, T4, CMP #### [facility] [address] [place] [address] Dr. Chucho Mayberry EGFR-AF TRINIDADIAN >60 Normal >=60 [facility] Comment on above: Performed By: #### T SH, LIPID, T4, CMP #### [facility] [address] [place] [address] Dr. Chucho Mayberry EGFR-NON AF TRINIDADIAN >60 Normal >=60 [facility] Comment on above: Performed By: #### T SH, LIPID, T4, CMP #### [facility] [address] [place] [address] Dr. Chucho Mayberry Globulin (S) [Mass/Vol] 3.4 g/dL Normal [facility] Comment on above: Performed By: #### T SH, LIPID, T4, CMP #### [facility] [address] [place] [address] Dr. Chucho Mayberry Glucose [Mass/Vol] 91 mg/dL Normal 74-106 [facility] Comment on above: Performed By: #### T SH, LIPID, T4, CMP #### [facility] [address] [address] [address] Chucho Mayberry Potassium [Moles/Vol] 4.2 mmol/L Normal 3.5-5.1 [facility] Comment on above: Performed By: #### T SH, LIPID, T4, CMP #### [facility] [address] [place] [address] Dr. Chucho Mayberry Protein [Mass/Vol] 7.2 g/dL Normal 6.4-8.2 [facility] Comment on above: Performed By: #### T SH, LIPID, T4, CMP #### [facility] [address] [place] [address] Dr. Chucho Mayberry Sodium [Moles/Vol] 141 mmol/L Normal 136-145 [facility] Comment on above: Performed By: #### T SH, LIPID, T4, CMP #### [facility] [address] [place] [address] Dr. Chucho Mayberry Urea nitrogen [Mass/Vol] 21.0 mg/dL Critically high 7.0-18.0 [facility] Comment on above: Performed By: #### T SH, LIPID, T4, CMP #### [facility] [address] [place] [address] Dr. Chucho Mayberry Urea nitrogen/Creatinine [Mass ratio] 17.9 mg/mg Normal [facility] Comment on above: Performed By: #### T SH, LIPID, T4, CMP #### [facility] [address] [place] [address] Dr. Chucho Mayberry T4on 08-12-2021 T4 [Mass/Vol] 7.50 ug/dL Normal 4.50-12.10 [facility] Comment on above: Performed By: #### T SH, LIPID, T4, CMP #### [facility] [address] [place] [address] Dr. Chucho Mayberry TSHon 08-12-2021 TSH 3.932 uIU/mL Critically high 0.358-3.740 [facility] Comment on above: Performed By: #### T SH, LIPID, T4, CMP #### [facility] [address] [place] [address] Dr. Chucho Mayberry Vital Signs Date Time Vital Sign Value Performing Clinician Facility 08-05-2023 08:25-0400 Body height 182.88 cm [facility] 08-05-2023 08:25-0400 Body mass index (BMI) [Ratio] 26.8 kg/m2 [facility] 08-05-2023 08:25-0400 Body weight 89.81 kg [facility] 08-05-2023 08:25-0400 Diastolic blood pressure 79 mm[Hg] [facility] 08-05-2023 08:25-0400 Heart rate 41 /min [facility] 08-05-2023 08:25-0400 Systolic blood pressure 132 mm[Hg] [facility] 04-13-2023 13:55-0500 Blood Pressure Location PRICILLA BRADLY [facility] 04-13-2023 13:55-0500 Diastolic blood pressure 79 mm[Hg] PRICILLA BRADLY [facility] 04-13-2023 13:55-0500 Heart rate 54 /min PRICILLA BRADLY [facility] 04-13-2023 13:55-0500 Respiratory rate 16 /min PRICILLA BRADLY [facility] 04-13-2023 13:55-0500 Systolic blood pressure 128 mm[Hg] PRICILLA BRADLY [facility] 02-16-2023 14:51-0500 Blood Pressure Location PRICILLA BRADLY [facility] 02-16-2023 14:51-0500 Diastolic blood pressure 78 mm[Hg] PRICILLA BRADLY [facility] 02-16-2023 14:51-0500 Heart rate 82 /min PRICILLA BRADLY [facility] 02-16-2023 14:51-0500 Systolic blood pressure 118 mm[Hg] PRICILLA BRADLY [facility] 01-08-2023 08:37-0500 Blood Pressure Location Jesse COVARRUBIAS [facility] 01-08-2023 08:37-0500 Body temperature 97.52 [degF] Jesse COVARRUBIAS [facility] 01-08-2023 08:37-0500 Diastolic blood pressure 82 mm[Hg] Jesse COVARRUBIAS [facility] 01-08-2023 08:37-0500 Heart rate 78 /min Jesse COVARRUBIAS [facility] 01-08-2023 08:37-0500 Systolic blood pressure 124 mm[Hg] Jesse COVARRUBIAS [facility] 12-22-2022 13:37-0500 Blood Pressure Location PRICILLA BRADLY [facility] 12-22-2022 13:37-0500 Diastolic blood pressure 79 mm[Hg] PRICILLA BRADLY [facility] 12-22-2022 13:37-0500 Heart rate 80 /min PRICILLA BRADLY [facility] 12-22-2022 13:37-0500 Respiratory rate 16 /min PRICILLA BRADLY [facility] 12-22-2022 13:37-0500 Systolic blood pressure 128 mm[Hg] PRICILLA ABDULLAHI [facility] Encounters Encounter Date Encounter Type Care Provider Facility Start: 11-30-2023 End: 11-30-2023 Adolph Arguello MD Work Phone: [facility] Start: 11-30-2023 End: 11-30-2023 Bamboo flowsblessing Arguello MD Work Phone: [facility] Start: 11-30-2023 End: 11-30-2023 Office outpatient visit 15 minutes Valentine Arguello MD Work Phone: [facility] Comment on above: Seborrheic keratosis (Primary Dx); Lentigines; Melanocytic nevus of trunk; Capillary angioma; Seborrheic keratosis, inflamed; Actinic keratosis; Neoplasm of unspecified behavior of bone, soft tissue, and skin; Bacterial folliculitis; History of basal cell carcinoma Start: 11-30-2023 End: 11-30-2023 ambulatory VALENTINE ARGUELLO Not Available Start: 08-05-2023 End: 08-05-2023 ambulatory [facility] Work Phone: Start: 08-05-2023 End: 08-05-2023 Patient encounter procedure [facility] Work Phone: Start: 04-13-2023 ambulatory PRICILLA ABDULLAHI Facili ty:[facility] Start: 04-13-2023 End: 04-13-2023 Patient encounter procedure PRICILLA ABDULLAHI [facility] Start: 02-16-2023 End: 02-17-2023 ambulatory PRICILLA ABDULLAHI Facility:[facility] Start: 02-16-2023 End: 02-16-2023 Patient encounter procedure PRICILLA ABDULLAHI [facility] Start: 02-12-2023 End: 02-13-2023 ambulatory Jesse COVARRUBIAS Facility:[facility] [place] Start: 02-12-2023 End: 02-12-2023 Patient encounter procedure Jesse COVARRUBIAS [facility] [place] Start: 02-11-2023 End: 02-12-2023 ambulatory Jesse COVARRUBIAS Facility:[facility] Start: 02-11-2023 End: 02-11-2023 Patient encounter procedure Jesse COVARRUBIAS [facility] Start: 01-08-2023 End: 01-09-2023 ambulatory Jesse COVARRUBIAS Facility:[facility] [place] Start: 01-08-2023 End: 01-08-2023 Patient encounter procedure Jesse COVARRUBIAS [facility] [place] Start: 12-22-2022 End: 12-23-2022 ambulatory PRICILLA ABDULLAHI Facility:[facility] [place] Start: 12-22-2022 End: 12-22-2022 Patient encounter procedure PRICILLA Junito BRADLY [facility] Start: 10-20-2022 ambulatory Jesse COVARRUBIAS Facility:[facility] Start: 08-12-2021 End: 08-13-[address] LUCIANA COOPER Facility:[facility] Start: 12-17-2020 End: 12-17-2020 ambulatory Areli Valverde Other [facility] Other Start: 12-17-2020 Office outpatient vi sit 10 minutes [facility] Start: 03-30-2018 End: 03-30-2018 Aki Leal Work Phone: DEPARTMENT OF OTOLARYNGOLOGY Comment on above: Meniere's disease of left ear Start: 03-21-2018 End: 03-21-2018 Patient encounter procedure Gabriela Leal Work Phone: Department of Otolaryngology Comment on above: Meniere's disease of left ear Start: 03-16-2018 End: 03-16-2018 Refill Gabriela Leal Work Phone: [facility]PARTMENT OF OTOLARYNGOLOGY Start: 04-27-2016 End: 04-27-2016 Telephone encounter Rayne Israel [facility] Ot[facility] Comment on above: Medication Refill Start: 02-14-2016 End: 02-14-2016 Telephone encounter Rayne Israel Department of Otolaryngology Comment on above: Medical Records Procedures Date Procedure Procedure Detail Performing Clinician Start: 11-30-2023 End: 11-30-2023 SKIN / NAIL BIOPSY Valentine Arguello MD Work Phone: Start: 11-30-2023 End: 11-30-2023 CRYOTHERAPY SKIN LESION Valentine Arguello MD Work Phone: Start: 02-11-2023 Transurethral insert ion of prostatic urethral lift implant PRICILLA ABDULLAHI Comment on above: 6 implants Start: 01-08-2023 Transurethral cystoscopy Jesse COVARRUBIAS Start: 08-12-[address] DEISY Lopes [place] Comment on above: Performed By: #### P SAD #### [facility] [address] [place] [address] Dr. Chucho Mayberry Arthroscopy of knee PRICILLA BRADLY Arthroscopy of shoulder MONY DURAN BRADLY Colonoscopy PRICILLA ABDULLAHI Tonsillectomy PRICILLA ABDULLAHI Ultrasonography by transrectal approach Jesse COVARRUBIAS Plan of Treatment Date Care Activity Detail Author Start: 12-19-2024 End: 12-19-2024 Patient encounter procedure 12/19/2024 8:35 AM EST Office Visit [facility] [address] [place] [address] Valentine Arguello MD [address] [place] [address] [facility] Start: 11-30-2023 End: 11-30-2023 Patient encounter procedure 11/30/2023 8:35 AM EDT Office Visit [facility] [address] [place] [address] Valentine Arguello MD [address] [place] [address] Arrived [facility] Comment on above: Arrived Start: 10-17-2023 Influenza vaccination Influenza Vaccine (#1) [facility] Start: 09-14-2020 Pneumococcal Vaccine: 65+ Years (1 of 1 - PCV) Pneumococcal Vaccine: 65+ Years (1 of 1 - PCV) [facility] Start: 10-16-2018 Influenza vaccination INFLUENZA VACCINE (#1) [facility] Start: 10-16-2017 Influenza vaccination INFLUENZA VACCINE (#1) [facility] Work Phone: Start: 09-14-2005 Colonoscopy COLON CANCER SCREENING DISCUSSION [facility] Start: 09-14-2005 Prostate specific antigen measurement PROSTATE CANCER SCREENING DISCUSSION [facility] Work Phone: Start: 09-14-2005 Protein mass conc COLON CANCER SCREENING DISCUSSION [facility] Work Phone: Start: 09-14-2005 Zoster vaccine hzv live for subcutaneous use ZOSTER (SHINGLES) VACCINE (1 of 2) [facility] Start: 1995 Fasting lipid profile LIPID SCREENING [facility] Work Phone: Start: 09-14-1974 Third diphtheria, tetanus and acellular pertussis (DTaP) vaccination TDAP (ADULT) [facility] Work Phone: Start: 09-14-1973 Tetanus vaccination TETANUS [facility] Work Phone: Start: 09-14-1968 HIV screening HIV SCREENING DISCUSSION [facility] Work Phone: Start: 1955 Hepatitis C antibody, confirmatory test HEPATITIS C VIRUS SCREENING [facility] Work Phone: Start: 1955 Potassium molar conc POTASSIUM [facility] Work Phone: Start: 1955 Screening for malignant neoplasm of colon [facility] Start: 1955 Thyrotropin Qn TSH [facility] Work Phone: Comprehensive metabo lic 2000 panel - Serum or Plasma [facility] Dermatopathology exam Dermatopat hology exam Pathology and Cytology Timed Neoplasm of unspecified behavior of bone, soft tissue, and skin Release Upon Ordering for 1 Occurrences starting 11/30/2023 [facility] Work Phone: Comment on above: Release Upon Ordering for 1 Occurrences starting 11/30/2023 [facility] Immunizations Immunization Date Immunization Notes Care Provider Rossi driver 05-22-2020 SARS-CoV-2 (COVID-19 ) mRNA BNT-162b2 vax PRICILLA ABDULLAHI [facility] 05-01-2020 SARS-CoV-2 (COVID-19 ) mRNA BNT-162b2 vax PRICILLA ABDULLAHI [facility] 01-16-2016 Dexamethasone Inj Gabriela Leal [facility] Payers Date Payer Category Payer Medicare [id number] 2022 Private Health Insurance [facility] [place] [place] [address] [id number] 2022 Unknown [id number] 2020 Medicare MEDICARE [id number] 5 2016 Private Health Insurance [facility] GENERIC xxxxxxxx 2016-Present xxxxxxxx [id number] 1959 Medicare [id number] 1959 Unknown [id number] 1955 Unknown [id number] [id number] .2.593 1955 Unknown [id number] [id number] .2.727 1955 Unknown [id number] [id number] .2.727 1955 Unknown [id number] [id number] .2.727 1955 Unknown [id number] [id number] .2.727 1955 Unknown [id number] 2.16.840.1.036906.3.579 .2.727 1955 Unknown [id number] 2.16.840.1.540061.3.579 .2.727 1955 Unknown [id number] [id number] .2.727 1955 Unknown [id number] [id number] .2.727 1955 Unknown [id number] [id number] .2.727 1955 Unknown [id number] [id number] .2.1259 Medicare Medicare [id number] Self-pay Self Pay [id number] Unknown R [id number] Unknown [place] [facility] [place] [id number] Social History Date Type Detail Facility Start: 09-17-2016 End: 11-24-2022 Tobacco smoking status NHIS Never smoker [facility] Sex Assigned At Not on file [facility] Work Phone: Start: 12-08-2022 End: 11-30-2023 Sex Assigned At [facility] Tobacco smoking status Never [facility] Start: 1955 Sex Assigned At Male [facility] Start: 11-24-2022 Tobacco use and exposure Smokeless tobacco non-user [facility] Start: 12-08-2022 End: 11-30-2023 Alcoholic beverage intake Lifetime non-drinker (finding) [facility] Start: 12-08-2022 End: 11-30-2023 History of Social function [facility] Start: 12-08-2022 Alcohol Comment caffeine >4 cups/day [facility] Start: 11-24-2022 Gender identity Identifies as male gender (finding) [facility] Start: 11-24-2022 Sexual orientation Heterosexual (finding) [facility] Functional Status Date Assessment Result Facility 04-13-2023 Functional Status N/A [facility] 02-16-2023 Functional Status N/A [facility] 02-11-2023 Functional Status N/A [facility] 01-08-2023 Functional Status N/A [facility] [place] [facility] 12-22-2022 Functional Status N/A [facility] Clinical Notes 12-17-2020 to 11-30-2023 Valentine Arguello MD - 11/30/2023 8:35 AM EDT Note Date & Type Note Facility 11-30-2023 History of Present illness Narrative Images from the original note were not included. Skin Check Location: Patient requests a full body skin examination Dermatologic history: history of Actinic Keratosis, history of Basal Cell Carcinoma Last visit: 1 year ago established patient Lesion(s) Location: scalp, face, right leg, posterior neck, left side, right lower back , left jaw line Duration: Months Quality: Irritating Modifying factors: aggravated by shaving Associated symptoms: rough, raised Treatments: None All pertinent medical history, medications, and allergies were reviewed. General Exam: alert , oriented to person, place, and time , normal affect, well appearing Areas not examined despite medical recommendation: under socks Scalp, Examined Right leg Examined Head, Face Examined Left leg Examined Neck Examined Right foot Not Examined Chest Examined Left foot Not Examined Back Examined Buttocks Examined Abdomen Examined Digits,nails: Examined Right arm Examined Left arm Examined Hands Examined 1. Seborrheic keratosis Stuck on verrucous, ty-brown papules and plaques. Patient was counseled regarding these benign growths. Removal is normally not necessary, but they may be removed if they are symptomatic or for cosmetic reasons. 2. Lentigines Scattered ty macules in sun-exposed areas. The patient was informed that lentigines are benign pigmented lesions that occur on sun-exposed and sun-damaged skin. No treatment is necessary. Recommended regular use of broad spectrum sunscreen SPF 30 or higher 3. Melanocytic nevus of trunk Scattered benign appearing, regular brown to light brown melanocytic papules and macules with similar morphology Counseled regarding these benign growths. Rarely, a nevus can develop into malignant melanoma, so any changing nevi should be promptly re-evaluated. 4. Capillary angioma (2) Left Flank, Trunk Scattered carlisle-red papule(s). The patient was informed that angiomas are benign growths on the the skin. No treatment is necessary. 5. Seborrheic keratosis, inflamed (3) Left Posterior Neck (2), Right Frontal Scalp [employer] and brown stuck on verrucous scaly papule with surrounding erythema. The patient was informed that symptomatic seborrheic keratoses are benign growths that become inflamed, itchy, tender, traumatized, caught on clothing, or bleed. Symptomatic lesions can be treated with cryotherapy or curretage. Thicker lesions treated with cryotherapy may require more than one treatment. The patient was instructed to notify the office if abnormal redness or tenderness develops at the treatment site. Cryotherapy today, see procedure note. Diagnosis: Inflamed seborrheic keratosis Indication: Inflamed Consent: Verbal consent was obtained and risks were discussed, including, but not limited to risks of scarring, darker or instrumental musician pigmentary changes, recurrence, incomplete removal and infection. Method: Liquid nitrogen was used to treat the lesion(s) with two 5-10 second freeze-thaw cycles Number of lesions treated: 3 Post-procedure instructions: Instructions were given orally and in writing. The office will be contacted if the lesion fails to resolve despite treatment, or if a side effect develops such as abnormal crusting, scabbing, redness or tenderness Cryotherapy, skin lesion - Left Posterior Neck (2), Right Frontal Scalp 6. Actinic keratosis Dorsum of Nose Erythematous scaly papules Patient was counseled regarding these sun-induced growths that can develop into squamous cell carcinoma if left untreated. Discussed treatment with cryotherapy. It was emphasized that any treated lesions that fail to resolve should be re-evaluated. Cryotherapy performed today; see procedure note Diagnosis: Actinic keratosis Indication: Precancerous Location: see skin exam Consent: Verbal consent was obtained and risks were discussed, including, but not limited to risks of scarring, darker or instrumental musician pigmentary changes, recurrence, incomplete removal and infection. Method: Liquid nitrogen was used to treat the lesion(s) with two 5-10 second freeze-thaw cycles. Number of lesions treated: 1 Post-procedure instructions: Instructions were given orally and in writing. The office will be contacted if the lesion fails to resolve despite treatment, or if a side effect develops such as abnormal crusting, scabbing, redness or tenderness Cryotherapy, skin lesion - Dorsum of Nose 7. Neoplasm of unspecified behavior of bone, soft tissue, and skin (2) Neck - Posterior Inflamed papule with surrounding erythema. Lesion biopsy Type of biopsy: tangential Informed consent: discussed and consent obtained Informed consent comment: The risks and benefits of the biopsy were discussed. Risks include but are not limited to bleeding, infection, scarring, pain, and nerve damage. An opportunity to ask questions prior to the procedure was permitted and all questions were answered. Patient was prepped and draped in usual sterile fashion: area cleansed with alcohol. Anesthesia: the lesion was anesthetized in a standard fashion Anesthetic: 1% lidocaine w/ epinephrine 1-100,000 buffered w/ 8.4% NaHCO3 Instrument used: DermaBlade Hemostasis achieved with: electrodesiccation Outcome: patient tolerated procedure well Outcome comment: The specimen was placed in a prelabeled formalin container to be sent for pathology Post-procedure details: sterile dressing applied and wound care instructions given Post-procedure details comment: Emphasized need to contact clinic for any signs of infection, uncontrollable bleeding, or complications. Dressing type: bandage Additional details: Photo taken Amount of lidocaine used: 0.5 cc Specimen A - Dermatopathology exam Differential Diagnosis: inflamed vs atypical nevus Check Margins: No Size of lesion: 0.6 x 0.5 cm Right Upper Back Inflamed papule with surrounding erythema. Lesion biopsy Type of biopsy: tangential Informed consent: discussed and consent obtained Informed consent comment: The risks and benefits of the biopsy were discussed. Risks include but are not limited to bleeding, infection, scarring, pain, and nerve damage. An opportunity to ask questions prior to the procedure was permitted and all questions were answered. Patient was prepped and draped in usual sterile fashion: area cleansed with alcohol. Anesthesia: the lesion was anesthetized in a standard fashion Anesthetic: 1% lidocaine w/ epinephrine 1-100,000 buffered w/ 8.4% NaHCO3 Instrument used: DermaBlade Hemostasis achieved with: electrodesiccation Outcome: patient tolerated procedure well Outcome comment: The specimen was placed in a prelabeled formalin container to be sent for pathology Post-procedure details: sterile dressing applied and wound care instructions given Post-procedure details comment: Emphasized need to contact clinic for any signs of infection, uncontrollable bleeding, or complications. Dressing type: bandage Additional details: Photo taken Amount of lidocaine used: 0.5 cc Specimen B - Dermatopathology exam Differential Diagnosis: inflamed vs atypical nevus Check Margins: No Size of lesion: 0.5 x 0.3 cm 8. Bacterial folliculitis Right Popliteal Fossa Follicularly-based erythematous papules and pustules. Discussed that folliculitis is a common condition in which the hair follicles become infected and can be symptomatic. Use OTC BPO cream as needed, sample given. 9. History of basal cell carcinoma Unspecified The patient was counseled that scars from excisional sites of nonmelanoma skin cancers should be monitored closely for recurrence. The patient was instructed to contact the office for any new, changing, or symptomatic moles. The patient was also instructed to contact the office for any new lesions that develop within or around the previous surgery scar. Next Visit: 1 year, skin check documented in this encounter [facility] 04-13-2023 Hospital Discharge instructions Patient Education 04/13/2023 [...] urethra. Follow these instructions at home: Take chbm-mpd-wafuofm and prescription medicines only as told by [...] provider. Document Revised: 08/20/2021 Document Reviewed: 08/20/2021 [employer] Patient Education 2022 [employer]. Follow Up Care 02/16/2023 16:00:07 With:PRICILLA ABDULLAHI PA-C, URL Address: [address] [place] [place] [address] When: Unknown [facility] 02-16-2023 Hospital Discharge instructions Patient Education 02/16/2023 [...] urethra. Follow these instructions at home: Take cehn-ect-mrvugni and prescription medicines only as told by [...] provider. Document Revised: 08/20/2021 Document Reviewed: 08/20/2021 Elsevier Patient Education 2022 [employer]. Follow Up Care 02/11/2023 10:14:12 With:BRADLY THOMPSON, PRICILLA Wild, URL Address: [place] [address] [phone] When: Unknown Comments:6 wks [facility] 02-11-2023 Note [id number] [facility] 02-11-2023 Hospital Discharge instructions Patient Education 02/11/2023 09:25:49 Lue - Urolift Post-Op Instructions (Custom) [facility] [place], [place] Post-Operative Instructions for UroLift After your [...] Care 01/08/2023 09:55:03 With:Jesse COVARRUBIAS Address: [address] [employer] [address] [address] Business (1) When:1 to 2 weeks Comments:Call for followup appointment to remove the catheter. Stay on your Flomax (tamsulosin) for now. You may be seeing one of our nurse practitioners or physician assistants. [facility] 12-23-2022 Hospital Discharge instructions Follow Up Care 12/23/2022 10:30:34 With:SATISH TIAN, Jesse Valdez, URL Address: [address] [employer] [address] [address]- When: Unknown Comments:Sched UroLift [facility] 12-22-2022 Note Chief Complaint Referral *BPH HPI Staff Evaluation requested by Dr Tasha Lancaster due to frequency & nocturia. Pt is a new pt, never before seen in our office. Per PCP notes, pt is taking Flomax 0.4mg qd & Saw Cranbury CMP 08/12/21 *BUN 21.0 & Crea 1.17 PSA 09/21/19- 1.55 PSA 07/25/20- 2.02 PSA 08/12/21- 2.00 PSA 08/06/22- 2.43 +Fam Hx of Bladder Cancer *Father Denies Hx of Smoking. Denies visible blood in urine. Denies pain/burning. Was experiencing frequency. Started Tamsulosin & Saw Cranbury. Has been taking for a few yrs. [...] intervention vs oral med. -Cont Tamsulosin and saw palmetto. Will dc in future. -Will schedule cystoscopy/TRUS. The risks and benefits for cystoscopy have been discussed. The risks include bleeding, infection, and irritation of the bladder and urinary channel, among others. The patient, after being informed of procedural details and after questions have been answered, wishes to proceed. Full informed consent has been obtained. Will order Local anesthesia. Ordered: [id number] Measure Post Void residual urine and/or bladder capacity by US- non-imaging E&M of New Patient Moderate 45-59 Min [id number] 2. Prostate cancer screening (Z12.5: Encounter for screening for malignant neoplasm of prostate) PSA 09/21/19 - 1.55 07/25/20 - 2.02 08/12/21 - 2.00 08/06/22 - 2.43 Discussed PSA level which remains low overall but is trending up slightly over the past few years. PCP monitors. Ordered: E&M of New Patient Moderate 45-59 Min 36772 Orders: Urnls Dip Stick Auto w/o Microscopy POC [id number] Follow-up With When Contact Information PRICILLA ABDULLAHI PA-C, URL [address] [place] [address] [phone] Additional Instructions: sched cysto/TRUS Patient Education Cystoscopy Benign Prostatic Hyperplasia Documentation recorded by the scribe Daymai Hickman accurately reflects the services(s) I performed [...] Vaccine Date Statu (more content not included)... [facility] Comment on above: Result Comment: Elec tronically Signed By: PRICILLA ABDULLAHI PA-C\.br\Date and Time Signed: 12/22/22 14:24 EST\.br\Electronically Co-Signed By: Dayami Hickman.br\Date and Time Co-Signed: 12/22/22 14:16 EST 12-22-2022 [...] including vitamins, herbs, eye drops, creams, and eovd-cco-bqyxvqe medicines. Any problems you or family members [...] provider tells you to take them. Taking ifbe-jnj-drlvwtt medicines, vitamins, herbs, and supplements. Tests You [...] Follow these instructions at home: Medicines Take cklu-tok-mjdozoy and prescription medicines only as told by [...] provider. Document Revised: 10/15/2021 Document Reviewed: 09/13/2020 [employer] Patient Education 2022 [employer]. 12/22/2022 14:01:32 Benign Prostatic Hyperplasia Benign Prostatic [...] urethra. Follow these instructions at home: Take sosy-yzh-mqtocga and prescription medicines only as told by [...] provider. Document Revised: 08/20/2021 Document Reviewed: 08/20/2021 [employer] Patient Education 2022 [employer]. Follow Up Care 10/20/2022 09:15:26 With:PRICILLA ABDULLAHI PA-C, URL Address: [address] [place] [address] [phone] When: Unknown Comments:sched cysto/TRUS [facility] 12-22-2022 Note Urology Cystoscopy Cystoscopy is a [...] including vitamins, herbs, eye drops, creams, and tgqv-vno-fjufkfm medicines. ? Any problems you or family [...] tells you to take them. ? Taking jtzq-jnb-wzjbmqm medicines, vitamins, herbs, and supplements. Tests You [...] these instructions at home: Medicines ? Take wdce-xuj-mooxqne and prescription medicines only as told by [...] the department th (more content not included)... 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) [facility] Other Evaluation + Plan note No data available for this section [facility] evaluation + Plan note Future Appointments Appointment Date:02/04/2023 09:30:00 AM Scheduled Provider: Location:[facility] Appointment Type:Urology CALL PAT FT Appointment Date:02/11/2023 09:15:00 AM Scheduled Provider: Location:[facility] Appointment Type:Urology FT [facility] Evaluation + Plan note Future Appointments Appointment Date:02/16/2023 02:40:00 PM Scheduled Provider:PRICILLA ABDULLAHI PA-C Location:[facility] App[facility]ments Appointment Date:04/13/2023 02:00:00 PM Scheduled Provider:PRICILLA ABDULLAHI PA-C Location:[facility] Appointment Type:URO Office Visit [facility] evaluation note* Diagnosis Onset Date Resolution Status Hypercholesterolemia acute Hypothyroidism acute Screening PSA (prostate specific antigen) [facility] Work Phone: Evaluation note* Diagnosis Seborrheic keratosis- Primary Lentigines Melanocytic nevus of trunk Benign neoplasm of skin of trunk, except scrotum Capillary angioma Nevus, non-neoplastic Seborrheic keratosis, inflamed Actinic keratosis Neoplasm of unspecified behavior of bone, soft tissue, and skin Bacterial folliculitis Other specified disease of hair and hair follicles History of basal cell carcinoma Personal history of other malignant neoplasm of skin documented in this encounter [facility] N[facility] - Reported* Type Description Date Medical History hypercholesterolemia 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 Surgical History Left knee arthroscopy Surgical History shoulder arthroscopy LEFT [facility] Other Hospital Discharge instructions No data available for this section [facility] Progress note No data available for this section [facility] Assessments Diagnosis Meniere's disease of left ear [...] Comments Medication Refill Reason Comments Medical Records Reason Comments Skin Check (unrecognized sect ion and content) No Status Records FoundNo Status Records FoundNo Status Records Found INFORMATION SOURCE (unrecogn ized section and content) DATE CREATED AUTHOR 08/16/2021 [facility] DATE CREATED AUTHOR AUTHOR'S ORGANIZ ATION 04/03/2023 [facility] DATE CREATED AUTHOR AUTHOR'S ORGANIZ ATION 12/02/2023 [facility] EPIC Patient Care team informatio n (unrecognized section [...] BE BASED ON THE PRIMARY CLINICAL RECORDS. [facility] [employer] [facility]. provides no warranty or guarantee of the accuracy or completeness of information in this document.
== END 2023-12-27 12:23 | disposition home or self-care (01) ==
LOC: RAD 12:23
PROVIDERS: PCP Family Medicine; Visit Provider Family Medicine
DX: U07.1 COVID-19 (principal)
CPT/HCPCS: 71046

== ENCOUNTER 2024-08-03 07:58 | Outpatient (OUT) | payer MEDICARE, OTHER, SELFPAY ==
--- OUTSIDE RECORDS SUMMARY | 2024-08-03 08:03 | XMS_ITS | CCD ---
Author Organization [facility] Care Team Providers Care Service Center Manager Name Role Phone Unavailable Primary Care Provider UnavailAreli Arteaga Unavailable KENNETH, DR CHOWDHURY Attending Unavailable ELKTON, DR CHOWDHURY Consulting Unavailable ELKTON, DR CHOWDHURY Primary Care Unavailable ELKTON, DR CHOWDHURY Admitting Unavailable KALEN LANCASTER Primary Care Physician [phone] Jesse COVARRUBIAS Attending Unavailable COOKJesse Attending Unavailable BRDALY, PRICILLA Nix Attending Unavailable BRADLY, PRICILLA Nix Referring Unavailable BRADLY, PRICILLA Nix Attending Unavailable KALEN LANCASTER Referring Unavailable BRADLY, PRICILLA Nix Attending Unavailable BRADLY, PRICILLA Nix Referring Unavailable BRADLY, PRICILLA Nix Attending Unavailable COOKJesse Admitting Unavailable Jesse COVARRUBIAS Attending Unavailable Jesse COVARRUBIAS Referring Unavailable Unavailable Primary Care Provider Karen Lancaster MD, Kalen Primary Care Provider ASHLEIGH ARGUELLO Attending Unavailable JEREMYSALLY Attending Unavailable JEREMYSALLY Attending Unavailable JEREMYSALLY Attending Unavailable JEREMYSALLY Attending Unavailable JEREMYSALLY Attending Unavailable Allergies Allergy Classification Reported Allergen(s) Allergy Type Date of Onset Reaction(s) Facility Bumetanide (1 source) Bumetanide Drug Allergy 08-05-19 [facility] Furosemide (1 source) Furosemide Drug Allergy 08-05-19 [facility] Quinolones (antibiotic) (1 source) levoFLOXacin Drug Allergy 08-05-19 24 [facility] Spironolactone (1 source) Spironolactone Drug Allergy 08-05-19 24 [facility] (5 sources) Triamterene Drug Allergy 12-19-19 [facility] Work Phone: (2 sources) Furosemide Drug Allergy 12-24-19 Unknown, Fatigued [facility] (1 source) Bumetanide Drug Allergy 09-08-19 [facility] (1 source) Furosemide Drug Allergy 09-08-19 [facility] (2 sources) Spironolactone Drug Allergy 09-08-19 Fatigued [facility] (10 sources) hydroCHLOROthiazide / Triamterene; Translations: [hydrochlorothiazide-t riamterene] Drug Allergy Lethargy (finding) [facility] (13 sources) Triamterene Drug Allergy 12-19-19 [facility] (1 source) Bumetanide Drug Allergy 12-24-19 Fatigued [facility] (1 source) levoFLOXacin Drug Allergy 12-24-19 hives [facility] Medications Current Medications Medication Drug Class(es) Dates Sig (Normalized) Sig (Original) acetaminophen 325 mg / HYDROcodone bitartrate 5 mg oral tablet (3 sources) Opioid Agonist Start: 01-08-2023 take 1 tablet by mouth every six hours as needed for pain, then take 5 tablets by mouth every hour as needed for pain Alta Vista 325 mg-5 mg oral tablet 1 tab(s), Oral, q6hr as needed for pain, 5 tab(s), Refill(s) 0, Take 1 hour prior to procedure., [id number], 185, cm, 01/08/23 8:46:00 EST, Height/Length Dosing, 89.5, kg, 01/08/23 8:46:00 EST, Weight Dosing Start Date: 01/08/23 Status: Ordered Albuterol Sulfate 90 mcg/actuation HFA aerosol inhaler (1 source) Start: 12-24-2023 take 1 puff(s) by inhalation every four to six hours as needed for wheezing Albuterol Sulfate 90 mcg/actuation HFA aerosol inhaler Active 2 PUFF INHALATION EVERY 4-6 HOURS as needed for shortness of breath or wheezing 6.7 December 24, 2023 12:00am Aspirin (20 sources) Platelet Aggregation Inhibitor, Nonsteroidal Anti-inflammatory Drug Start: 12-22-2022 aspirin Refills(s) 0 Start Date: 12/22/22 Status: Ordered Start: 09-08-2019 take 1 tablet by benigno th once daily Aspirin (Aspir-81) 81 mg Tablet,Delayed Release (Dr/Ec) Active 81 MG PO Daily September 07, 2019 11:00pm aspirin 81 MG ch ewable tablet Chew [...] day(s), # 6 tab(s), Refills(s) 0, Pharmacy: [facility], 185, cm, 01/08/23 8:46:00 EST, Height/Length Dosing, 89.5, kg, 01/08/23 8:46:00 EST, Weight Dosing Start Date: 01/08/23 Stop Date: 01/11/23 Status: Ordered Start: 12-23-2022 Cipro 500 mg T ab See Instructions, Take 1 tab day prior to procedure and 1 tab day of procdure - afterwards, # 2 tab(s), Refills(s) 0, Pharmacy: [facility], 185, cm, 12/22/22 13:39:00 EST, Height/Length Dosing, 89.5, kg, 12/22/22 13:39:00 EST, Weight Dosing Start Date: 12/23/22 Status: Ordered diazePAM 10 mg oral tablet (3 sources) Benzodiazepine Start: 01-08-2023 Valium 10 mg Tab 10 mg = 1 tab(s), Oral, Once, Take 30 minutes prior to procedure, # 1 tab(s), Refills(s) 0, Pharmacy: [facility], 185, cm, 01/08/23 8:46:00 EST, Height/Length [...] tablet 3 05/11/2017 03/21/2018 Discontinued levothyroxine sodium 0.075 mg oral tablet (20 sources) l-Thyroxine Start: 11-09-2023 Levothyroxine 75 mcg tablet Active 0 .ROUTE .COMPLEX November 09, 2023 7:22am TAKE 1 TABLET DAILY Start: 08-05-2023 End: 11-09-2023 take 1 tablet by mouth once daily Levothyroxine 75 mcg tablet Discontinued 75 MCG PO Daily August 05, 2023 10:42am November 09, 2023 7:22am Start: 12-16-2022 Synthroid 50 m cg Tab 90 tab(s), 0 Refill(s), Refills(s) 0 Start Date: 12/16/22 Status: Ordered Start: 09-08-2019 End: 08-05-2023 take 1 tablet by mouth once daily Levothyroxine (Synthroid) 50 mcg Tablet Discontinued 50 MCG PO Daily September 07, 2019 11:00pm August 05, 2023 10:42am take 1 tablet by benigno th once daily in the morning Levothyroxine Sodium 50 MCG 1 tablet in the morning on an empty stomach Orally Once a day Active magnesium gluconate 550 mg oral tablet (13 sources) take 1 tablet by mouth in the morning magnesium 30 MG tablet Take 30 mg by mouth in the morning and 30 mg before bedtime. Active magnesium oxide 250 mg oral tablet (9 sources) Start : 12-22 take 1 mg by mouth once daily magnesium oxide 250 mg oral tablet mg tab(s), Oral, Daily, Refills(s) 0 Start Date: 12/22/22 Status: Ordered Medrol Dose Pack as directed (1 source) Start : 11-05 Medrol Dose Pack as directed as directed orally as directed Oct, Active methylPREDNISolone 4 mg oral tablet (1 source) Corticosteroid Start : 12-23 take 1 tablet by mouth once Methylprednisolone (Medrol (Gigi)) 4 mg tablets,dose pack Active 0 PO per package directions December 24, 2023 12:00am PO PER PKG DIR naproxen sodium 220 mg oral capsule (3 sources) Nonsteroidal Anti-inflammatory Drug Start : 08-03 take 1 capsule by mouth every twelve hours at mealtime as needed Naproxen Sodium (Aleve) 220 mg capsule Active 220 MG PO Every 12 hours August 03, 2023 11:00pm FreeTextSi capsule with food or milk as [...] discomfort, # 60 tab(s), Refills(s) 0, Pharmacy: [facility], 185, cm, 01/08/23 8:46:00 EST, Height/Length Dosing, 89.5, kg, 01/08/23 8:46:00 EST, Weight Dosing Start Date: 01/08/23 Status: Ordered rosuvastatin calcium 5 mg oral tablet (20 sources) HMG-CoA Reductase Inhibitor Start: 09-08-2019 End: 08-05-2023 take 1 tablet by mouth once daily Rosuvastatin 5 mg tablet Active 5 MG PO Daily August 05, 2023 10:42am Saw Plato (1 source) Saw Plato Act kathe saw palmetto (Serenoa repens) 80 MG capsule (13 sources) saw palmetto (Serenoa repens) 80 MG capsule Saw Plato Active Saw Plato (6 sources) Start: 08-04-2023 take 1 capsule by mouth twice daily Saw Plato 160 mg capsule Active 160 MG PO Twice daily August 03, 2023 11:00pm give with meal/snack Start: 08-04-2023 take 160 mg by mouth twice daily Saw Plato Active 160 MG PO Twice daily August 04, 2023 12:00am give with meal/snack Start: 12-22-2022 saw palmetto O ral, Refill(s) 0 Start Date: 12/22/22 Status: Ordered tamsulosin hydrochloride 0.4 mg oral capsule (20 sources) alpha-Adrenergic Karin Start: 08-04-2023 End: 08-05-2023 take 1 capsule by mouth once daily Tamsulosin 0.4 mg capsule Active 0.4 MG PO Daily 90 August 05, 2023 10:42am FreeTextSi capsule Orally Once a day; Note: Source Status: Taking; Provider: Raffaele Cordova ( ) Start: 12-16-2022 tamsulosin 0.4 mg Cap 90 cap(s), 0 Refill(s), Refills(s) 0 Start Date: 12/16/22 Status: Ordered Start: 10-03-2022 tamsulosin (Fl omax) 0.4 MG 24 hr capsule 10/03/2022 Active take 1 capsule by [facility] every twenty-four hours Flomax 0.4 MG 1 capsule Orally Once a day Active TURMERIC CURCUMIN PO (13 sources) TURMERIC CURCUMI N PO Turmeric Curcumin Active Turmeric extract (11 sources) Start: 08-04-2023 Turmeric 400 m g capsule Active MG PO August 03, 2023 11:00pm Start: 08-04-2023 Turmeric Activ e MG PO August 04, 2023 12:00am Start: 12-22-2022 Turmeric Oral, Daily, Refill(s) 0 Start Date: 12/22/22 Status: Ordered Vitamin D3 (9 sources) Start: 12-22-2022 Vitamin D3 Ref ills(s) 0 Start Date: 12/22/22 Status: Ordered Completed/Discontinued Medications Medication Drug Class(es) Dates Sig (Normalized) Sig (Original) cholecalciferol 0.025 mg oral capsule (20 sources) Vitamin D Start: 08-04-2023 End: 08-05-2023 take 1 capsule by mouth once daily Cholecalciferol (Vitamin D3) 25 mcg (1,000 unit) capsule Discontinued 25 MCG PO Daily August 03, 2023 11:00pm August 05, 2023 7:35am cholecalciferol (Vitamin D-3) 50 MCG (2000 UT) tablet Take by mouth. Active take 1 tablet by benigno th every twenty-four hours Vitamin D 25 MCG (1000 UT) 1 tablet Oral ly Once a day Active Cholecalciferol (VITAMIN D) 2000 UNITS Tab take by mouth.. 0 Active Problems Active Problems Problem Classification Problem Date Documented Date Episodic/Chronic Cardiac dysrhythmias (13 sources) Atrial fibrillation; Translations: [Unspecified atrial fibrillation] 12-22-2022 Chronic Comment on above: Problem List clean-u p per request of Phys. 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 EHR Cmte Essential hypertension (1 source) Essential (primary) hypertension; Translations: [ESSENTIAL PRIMARY HYPERTENSION] Onset: 08-15-2021 Chronic Hyperplasia of prostate (15 sources) Benign prostatic hyperplasia without lower urinary [...] Deafness of left ear 12-16-2022 Chronic Other ear and sense organ disorders (4 sources) Asymmetrical sensorineural hearing loss; Translations: [Sensorineural hearing loss, bilateral] 02-24-2024 Chronic Other ear and sense organ disorders (1 source) Tinnitus of left ear; Translations: [Tinnitus, left ear] 02-24-2024 Episodic Other non-epithelial cancer of skin (2 sources) History of malignant basal cell neoplasm of skin; Translations: [Personal history of other malignant neoplasm of skin] 11-30-2023 Episodic Other screening for suspected conditions (not mental disorders or infectious disease) (9 sources) Encounter for screening for malignant neoplasm of prostate; Translations: [Screening for malignant neoplasm done] Onset: 12-22-2022 Episodic Comment on above: Problem List clean-u p per request of Phys. EHR Cmte Other skin disorders (2 sources) Seborrheic keratosis; [...] specified follicular disorders] 11-30-2023 Episodic Thyroid disorders (16 sources) Hypothyroidism, unspecified; Translations: [Hypothyroidism] Onset: 08-12-2021 Chronic Comment on above: Problem List clean-u p per request of Phys. EHR Cmte Unclassified (18 sources) Patient encounter status 12-22-2022 Viral infection (2 sources) Disease caused by 2019-nCoV; Translations: [COVID-19] 12-24-2023 Episodic Past or Other Problems Problem Classification Problem [...] Test Name Value Interpretation Reference Range Facility Auditory function testson Right Ear: Mild sensorineural hearing loss at 4K Hz Left Ear: Moderate to severe sensorineural hearing loss [facility] No Panel Informationon 11-29 Type of biopsy: [...] taken Amount of lidocaine used: 0.5 cc [facility] Type of biopsy: tangential Informed consent: discussed [...] taken Amount of lidocaine used: 0.5 cc [facility] Laboratory - Chemistry and C hemistry - challengeon 11-05-2023 Free T4 [Mass/Vol] 1.07 ng/dL 0.76-1.46 [facility] TSH Qn 2.429 m[IU]/L 0.358-3.740 [facility] Ambulatory Visit Summaryon 0 02-16-2023 Ambulatory Visit Summary WESLY WALLER Simón :1955 Visit Date:02/16/2023 Ambulatory Visit Instructions Your Diagnosis BPH with obstruction/lower urinary tract symptoms Prostate cancer screening Tests Performed Urnls Dip Stick Auto w/o Microscopy POC [id number] Your Care Team Attending Physician - PRICILLA ABDULLAHI PA-C Primary Care Physician - KALEN LANCASTER MD Referring Physician - PRICILLA ABDULLAHI PA-C This Is Your Medications List Contact prescribing physician if questions or concerns Turmeric aspirin cholecalciferol (Vitamin D3) levothyroxine (Synthroid 50 mcg Tab) magnesium oxide (magnesium oxide 250 mg oral tablet) rosuvastatin (rosuvastatin 5 mg Tab) tamsulosin (tamsulosin 0.4 mg Cap) [Image Removed: STOP]Stop taking these medications acetaminophen-hydrocodo ne (Al[place] Vista 325 mg-5 mg oral tablet) ciprofloxacin (Cipro [...] PRICILLA ABDULLAHI PA-C Where: [facility] Patient Educationon 02-16-19 24 Patient Education Urology Benign Prostatic Hyperplasia Benign [...] Follow these instructions at home: ? Take qkoo-ugn-gsbstjo and prescription medicines only as told by [...] the medicine (more content not included)... [facility] Urology Office/Clinic Noteon 02-16-2023 Urology Office/Clinic Note Chief Complaint S/p to Cysto HPI Staff S/p to Urolift done @ [facility] 02/11/23- Previous DX; BPH, Taking Flomax 0.4 [...] needs to take this. IPSS 18 (18). Bassett he never emptied prior to procedure. Was [...] -PCP monitors. Follow-up With When Contact Information PRICILLA ABDULLAHI PA-C, URL [address] [place] [address] [phone] Additional Instructions: 6 wks Patient Education Benign Prostatic Hyperplasia Documentation recorded by the scribboyd Hickman accurately reflects the services(s) I performed [...] oxide 250 mg oral tablet, Oral, Daily Alta Vista 325 mg-5 mg oral tablet, 1 tab(s), [...] 14:55:00) Blood Urin (more content not included)... [facility] Comment on above: Result Comment: Elec tronically Signed By: PRICILLA ABDULLAHI PA-C\.br\Date and Time Signed: 02/16/23 16:27 EST\.br\Electronically Co-Signed By: Dayami Hickman\Pambr\Date and Time Co-Signed: 02/16/23 15:49 EST Consent for Procedure/Surger yon 02-11-2023 Consent for Procedure/Surgery [id number]#1.00 TIFF [facility] Consent for Treatmenton 01-16 Consent for Treatment [id number] IFF [facility] Inpatient Patient Summaryon 02-11-2023 Inpatient Patient Summary [address] [address] Clinical Summary Person Information Name: WESLY WALLER Age: 67 Years : 1955 Sex: Male PCP: KALEN LANCASTER MD Marital Status: Race: White Ethnicity: Non- or Language: Danish Visit Id: Visit Reason: BPH WITH LUTS Speciality: Acuity: Enc Type: Outpatient Med Service: Surgery Arrival: 02/11/2023 08:42:26 Discharge: Dispo Type: Address: [address] [place] [id number] Provider Notes: Diagnosis: Other obstructive and reflux [...] This Visit Final Med List: acetaminophen-hydrocodo ne (Al[place] Vista 325 mg-5 mg oral tablet) 1 Tablets [...] Follow up: With: Address: When: Jesse COVARRUBIAS [address] [place] [address], [address], [place] [address] [facility] () Within 1 to 2 weeks Comments: Call for followup appointment to remove the catheter. Stay on your Flomax (tamsulosin) for now. You may be seeing one of our nurse practitioners or physician assistants. Patient Education Information: Lue - Urolift Post-Op Instructions (Custom) [facility] IntraOperative Documentson 1 04-14-2022 IntraOperative Documents [id number] TIFF [facility] Main OR Intraoperative Recor don 02-11-2023 Main OR Intraoperative Record IntraOp Document Type FTURO Summary Primary Physician: Jesse COVARRUBIAS MD Finalized Date/Time: 02/11/23 09:48:09 Pt. Name: WSELY WALLER/Sex: 1955 Male Med Rec #: [id number] Physician: Jesse COVARRUBIAS MD Financial #: [id number] Pt. Type: O Room/Bed: / Admit/Disch: 02/11/23 [...] Edison Bynum Role Performed Surgeon - Primary Hand Woodworking Sander - Primary Scrub - Primary Time In [...] Class 2 - Clean-Contaminated Last Modified By: Aury GODINEZ, Renetta Valdez 02/11/23 09:21:27 General Case Data FTURO Pre-Care [...] Valdez, Verified (If Medication Participants Aury GODINEZ, Renetta Applicable) Gilda Valdez, Edison Leong, Laila DOMÍNGUEZ, Henrietta [...] EU Outcomes Met? Yes Last Modified By: Renetta Ulloa RN 02/11/23 09:21:16 Post-Care Text: The patient is free from signs and symptoms of injury caused by extraneous objects Implant Log FTURO Pre-Care Text: Records devices implanted during the operative or invasive procedure Entry 1 Entry 2 Entry 3 Implant/Explant Implant Implant Implant Implant Identification Description UROLIFT 2 IMPLANT UROLIFT 2 IMPLANT UROLIFT 2 IMPLANT CARTRIDGE CARTRIDGE CARTRIDGE Serial Number Lot Number [id number] Heating Unit Mechanic NEOTRACT NEOTRACT NEOTRACT Catalog ?# [id number] UL2-C UL2-C Size Expiration Date 09/30/24 07/29/24 09/16/24 Usage Data Implant Site PROSTATE PROSTATE PROSTATE Quantity 1 1 4 Temperature Reconstitution Method Outcomes Met? Yes Yes Yes Last Modified By: Aury GODINEZ, Renetta Ulloa RN, Renetta Martinez RN 02/11/23 Gilda P 02/11/23 Gilda P 02/11/23 09:16:28 09:16:28 09:21:45 Post-Care Text: The patient is free from signs and symptoms of injury caused by extraneous objects Sign Out FTURO Entry 1 Before Patient Leaves OR Nurse verbally Yes Nurse verbally Yes confirms with the confirms with the team the name of team that the pro (more content not included)... [facility] Main OR Preoperative Recordo n 02-11-2023 Main OR Preoperative Record Holding Area Document Type FTURO Summary Primary Physician: Jesse COVARRUBIAS MD Finalized Date/Time: 02/11/23 08:52:30 Pt. Name: WESLY WALLER/Sex: 1955 Male Med Rec #: [id number] Physician: Jesse COVARRUBIAS MD Financial #: [id number] Pt. Type: O Room/Bed: / Admit/Disch: 02/11/23 [...] By: Henrietta Childress RN 02/11/23 08:52 [facility] Operative Reporton Operative Report Patient: EFRAIN WALLER [...] procedure (10 mg diazepam, 5/325 mg of Alta Vista), Local Anesthesia (60cc 2% Xylocaine liquid inserted [...] the time of this dictation. . [facility] Comment on above: Result Comment: Elec tronically Signed By: Jesse COVARRUBIAS MD\.br\Date and Time Signed: 02/11/23 09:28 EST Outpatient Surgery Discharge Instructionon 02-11-2023 Outpatient Surgery Discharge Instruction [address] [address] Patient Discharge Instructions PERSON INFORMATION Name: WESLY WALLER Date of : 1955 Current Date: 02/11/2023 09:52:05 [facility] Admitting Physician: Jesse COAVRRUBIAS MD Comment: Discharge Diagnosis: Other obstructive and reflux uropathy WESLY WALLER has been given the following list of follow-up instructions, prescriptions, and patient education materials: IF UNABLE TO CONTACT YOUR PHYSICIAN AND YOU FEEL IT IS AN EMERGENCY, GO TO THE NEAREST EMERGENCY ROOM OR CALL 911 Follow up: With: Address: When: Jesse COVARRUBIAS [address] [place] [address], [address], [place] [phone] Business (1) Within 1 to 2 weeks Comments: Call for followup appointment to remove the catheter. Stay on your Flomax (tamsulosin) for now. You may be seeing one of our nurse practitioners or physician assistants. Comment: PATIENT EDUCATION INFORMATION Instructions: [facility] [place], [place] Post-Operative Instructions for UroLift After your [...] feels like the bladder is not emptying. I, WESLY WALLER, have received the attached patient education materials/instructions and have verbalized understanding: May we do a follow up call? Yes No I was present when discharge instructions were given Patient Signature Date Clinican/Nurse Signature _ Date You may receive a survey from [employer] asking you to rate your care experience. Your feedback is important and will help us understand what we do well and how we can improve the qual (more content not included)... [facility] Patient Educationon 02-12-20 23 Patient Education [facility] [place], [place] Post-Operative Instructions for UroLift After your [...] like the bladder is not emptying. [facility] Consent for Procedure/Surger yon 01-11-2023 Consent for Procedure/Surgery [id number] IFF [facility] Ambulatory Visit Summaryon 1 03-10-2022 Ambulatory Visit Summary CHRISTINWESLY Simón :1955 Visit Date:01/08/2023 Ambulatory Visit Instructions Your Diagnosis BPH with obstruction/lower urinary tract symptoms Prostate cancer screening Your Care Team Attending Physician - Jesse COVARRUBIAS MD Primary Care Physician - KALEN LANCASTER MD This Is Your Medications List [...] Following Appointments Follow Up with SATISH TIAN, BRYCE Granado When: Comments: Sched UroLift Where: [address] [address]- Medications What How Much When Instructions Unchanged [...] for choosing us for your care. [facility] Consenton 01-08-2023 Consent [id number] FF [facility] Urology Office/Clinic Noteon 01-08-2023 Urology Office/Clinic Note [...] order Local anesthesia. -Will send Cipro 500mg, Alta Vista 325mg, Valium 10mg and Oxybutynin 5mg to pharm on file. Discussed the medication side effects, and the patient will monitor closely for these, as well as for symptom improvement. If severe side effects occur, the medication should be stopped and the office notified. -Pt will need a automation driver for the Valium 10mg. 2. Prostate [...] but he (more content not included)... [facility] Comment on above: Result Comment: Elec tronically Signed By: Jesse COVARRUBIAS MD\.br\Date and Time Signed: 01/08/23 09:45 EST\.br\Electronically Co-Signed By: Verona Hector\.br\Date and Time Co-Signed: 01/08/23 09:41 EST Physician Referralon 023 Physician Referral [id number] TIFF [facility] Screenson 12-23-2022 Screens [id number] IFF [facility] CBC AUTO DIFFon 08-12-2021 BASO # 0.0 103/ul Normal 0.0-0.1 [facility] Comment on above: Performed By: #### C BC #### [facility] [address] [place] [address] Dr. Chucho Mayberry Basophils/100 WBC (Bld) 0.7 % Normal 0.2-2.0 [facility] Comment on above: Performed By: #### C BC #### [facility] [address] [place] [address] Dr. Chucho Mayberry EO # 0.2 103/ul Normal 0.0-0.7 [facility] Comment on above: Performed By: #### C BC #### [facility] [address] [place] [address] Dr. Chucho Mayberry Eosinophils/100 WBC (Bld) 5.0 % Normal 0.9-7.0 [facility] Comment on above: Performed By: #### C BC #### [facility] [address] [place] [address] Dr. Chucho Mayberry Erythrocyte distribution width (RBC) [Ratio] 13.2 % Normal 11.0-15.0 [facility] Comment on above: Performed By: #### C BC #### [facility] [address] [place] [address] Dr. Chucho Mayberry Hematocrit (Bld) [Volume fraction] 40.6 % Critically low 42.0-54.0 [facility] Comment on above: Performed By: #### C BC #### [facility] [address] [place] [address] Dr. Chucho Mayberry Hemoglobin (Bld) [Mass/Vol] 13.6 g/dL Critically low 14.0-18.0 [facility] Comment on above: Performed By: #### C BC #### [facility] [address] [address] [address] Chucho Mayberry IG # 0.01 10e3/ul Normal 0.00-0.03 [facility] Comment on above: Performed By: #### C BC #### [facility] [address] [place] [address] Dr. Chucho Mayberry IG % 0.2 % Normal 0.0-0.5 [facility] Comment on above: Performed By: #### C BC #### [facility] [address] [place] [address] Dr. Chucho Mayberry LYMPH # 1.1 103/ul Critically low 1.2-3.8 [facility] Comment on above: Performed By: #### C BC #### [facility] [address] [place] [address] Dr. Chucho Mayberry Lymphocytes/100 WBC (Bld) 24.9 % Normal 20.5-60.0 [facility] Comment on above: Performed By: #### C BC #### [facility] [address] [place] [address] Dr. Chucho Mayberry MANUAL DIFF REQ NO Normal [facility] Comment on above: Performed By: #### C BC #### [facility] [address] [place] [address] Dr. Chucho Mayberry MCH (RBC) [Entitic mass] 31.1 pg Normal 25.9-34.0 [facility] Comment on above: Performed By: #### C BC #### [facility] [address] [place] [address] Dr. Chucho Mayberry MCHC (RBC) [Mass/Vol] 33.5 g/dL Normal 29.9-35.2 [facility] Comment on above: Performed By: #### C BC #### [facility] [address] [place] [address] Dr. Chucho Mayberry MCV (RBC) [Entitic vol] 92.9 fL Normal 80.0-94.0 [facility] Comment on above: Performed By: #### C BC #### [facility] [address] [place] [address] Dr. Chucho Mayberry MONO # 0.5 103/ul Normal 0.3-0.8 [facility] Comment on above: Performed By: #### C BC #### [facility] [address] [place] [address] Dr. Chucho Mayberry Monocytes/100 WBC (Bld) 10.2 % Normal 1.7-12.0 [facility] Comment on above: Performed By: #### C BC #### [facility] [address] [place] [address] Dr. Chucho Mayberry NEUT # 2.6 103/ul Normal 1.4-6.5 [facility] Comment on above: Performed By: #### C BC #### [facility] [address] [place] [address] Dr. Chucho Mayberry Neutrophils/100 WBC (Bld) 59.0 % Normal 43.0-75.0 [facility] Comment on above: Performed By: #### C BC #### [facility] [address] [place] [address] Dr. Chucho Mayberry Platelet mean volume (Bld) [Entitic vol] 11.0 fL Normal 9.5-13.5 [facility] Comment on above: Performed By: #### C BC #### [facility] [address] [place] [address] Dr. Chucho Mayberry PLT 177 103/ul Normal 150-450 [facility] Comment on above: Performed By: #### C BC #### [facility] [address] [place] [address] Dr. Chucho Mayberry RBC 4.37 106/ul Critically low 4.70-6.10 [facility] Comment on above: Performed By: #### C BC #### [facility] [address] [address] [address] Chucho Mayberry WBC 4.4 103/ul Normal 4.0-11.0 [facility] Comment on above: Performed By: #### C BC #### [facility] [address] [address] [address] Chucho Mayberry LIPID PROFILEon 08-12-2021 CHOL-HDL RATIO NORM SEE BELOW Normal [facility] Comment on above: Result Comment: 3.3 - 4.4 LOW RISK 4.4 - 7.1 AVERAGE RISK 7.1 - 11.0 MODERATE RISK >11.0 HIGH RISK Performed By: #### T SH, LIPID, T4, CMP #### [facility] [address] [address] [address] Chucho Mayberry Cholesterol [Mass/Vol] 187 mg/dL Normal <=200 [facility] Comment on above: Performed By: #### T SH, LIPID, T4, CMP #### [facility] [address] [address] [address] Chucho Mayberry Cholesterol in HDL [Mass/Vol] 69 mg/dL Critically high 40-60 [facility] Comment on above: Performed By: #### T SH, LIPID, T4, CMP #### [facility] [address] [address] [address] Chucho Mayberry Cholesterol in LDL [Mass/Vol] 107.4 mg/dL Normal [facility] Comment on above: Performed By: #### T SH, LIPID, T4, CMP #### [facility] [address] [address] [address] Chucho Mayberry Cholesterol.total/C holesterol in HDL [Mass ratio] 2.7 {ratio} Normal [facility] Comment on above: Performed By: #### T SH, LIPID, T4, CMP #### [facility] [address] [address] [address] Chucho Mayberry HDL NORMAL > or = 60 mg/dl - LO W CARDIOVASCULAR RISK <40 mg/dl - HIGH CARDIOVASCULAR RISK Normal [facility] Comment on above: Performed By: #### T SH, LIPID, T4, CMP #### [facility] [address] [address] [address] Chucho Mayberry LDL CALC NORMAL SEE BELOW Normal [facility] Comment on above: Result Comment: <100 mg/dl OPTIMAL 100 - 129 mg/dl NEAR OR ABOVE OPTIMAL 130 - 159 mg/dl BORDERLINE HIGH 160 - 189 mg/dl HIGH >190 mg/dl VERY HIGH Performed By: #### T SH, LIPID, T4, CMP #### [facility] [address] [address] [address] Chucho Mayberry Triglyceride [Mass/Vol] 53 mg/dL Normal <=150 [facility] Comment on above: Performed By: #### T SH, LIPID, T4, CMP #### [facility] [address] [place] [address] Dr. Chucho Mayberry VLDL CALC 10.6 mg/dL Normal [facility] Comment on above: Performed By: #### T SH, LIPID, T4, CMP #### [facility] [address] [place] [address] Dr. Chucho Mayberry PROF 14(COMP METB)on 022 Albumin [Mass/Vol] 3.8 g/dL Normal 3.4-5.0 [facility] Comment on above: Performed By: #### T SH, LIPID, T4, CMP #### [facility] [address] [place] [address] Dr. Chucho Mayberry Albumin/Globulin [Mass ratio] 1.1 {ratio} Normal [facility] Comment on above: Performed By: #### T SH, LIPID, T4, CMP #### [facility] [address] [place] [address] Dr. Chucho Mayberry ALP [Catalytic activity/Vol] 87 U/L Normal 46-116 [facility] Comment on above: Performed By: #### T SH, LIPID, T4, CMP #### [facility] [address] [address] [address] Chucho Mayberry ALT [Catalytic activity/Vol] 21 U/L Normal 16-63 [facility] Comment on above: Performed By: #### T SH, LIPID, T4, CMP #### [facility] [address] [address] [address] Chucho Mayberry Anion gap [Moles/Vol] 10.5 mmol/L Normal [facility] Comment on above: Performed By: #### T SH, LIPID, T4, CMP #### [facility] [address] [address] [address] Chucho Mayberry AST [Catalytic activity/Vol] 19 U/L Normal 15-37 [facility] Comment on above: Performed By: #### T SH, LIPID, T4, CMP #### [facility] [address] [place] [address] Dr. Chucho Mayberry Bilirubin [Mass/Vol] 0.8 mg/dL Normal 0.2-1.0 [facility] Comment on above: Performed By: #### T SH, LIPID, T4, CMP #### [facility] [address] [place] [address] Dr. Chucho Mayberry Calcium [Mass/Vol] 8.7 mg/dL Normal 8.5-10.1 [facility] Comment on above: Performed By: #### T SH, LIPID, T4, CMP #### [facility] [address] [place] [address] Dr. Chucho Mayberry Chloride [Moles/Vol] 106 mmol/L Normal 98-107 [facility] Comment on above: Performed By: #### T SH, LIPID, T4, CMP #### [facility] [address] [address] [address] Chucho Mayberry CO2 [Moles/Vol] 28.7 mmol/L Normal 21.0-32.0 [facility] Comment on above: Performed By: #### T SH, LIPID, T4, CMP #### [facility] [address] [place] [address] Dr. Chucho Mayberry Creatinine [Mass/Vol] 1.17 mg/dL Normal 0.70-1.30 [facility] Comment on above: Performed By: #### T SH, LIPID, T4, CMP #### [facility] [address] [place] [address] Dr. Chucho Mayberry EGFR-AF BAHRAINI >60 Normal >=60 [facility] Comment on above: Performed By: #### T SH, LIPID, T4, CMP #### [facility] [address] [place] [address] Dr. Chucho Mayberry EGFR-NON AF BAHRAINI >60 Normal >=60 [facility] Comment on above: Performed By: #### T SH, LIPID, T4, CMP #### [facility] [address] [place] [address] Dr. Chucho Mayberry Globulin (S) [Mass/Vol] 3.4 g/dL Normal [facility] Comment on above: Performed By: #### T SH, LIPID, T4, CMP #### [facility] [address] [place] [address] Dr. Chucho Mayberry Glucose [Mass/Vol] 91 mg/dL Normal 74-106 [facility] Comment on above: Performed By: #### T SH, LIPID, T4, CMP #### [facility] [address] [place] [address] Dr. Chucho Mayberry Potassium [Moles/Vol] 4.2 mmol/L Normal 3.5-5.1 [facility] Comment on above: Performed By: #### T SH, LIPID, T4, CMP #### [facility] [address] [place] [address] Dr. Chucho Mayberry Protein [Mass/Vol] 7.2 g/dL Normal 6.4-8.2 [facility] Comment on above: Performed By: #### T SH, LIPID, T4, CMP #### [facility] [address] [place] [address] Dr. Chucho Mayberry Sodium [Moles/Vol] 141 mmol/L Normal 136-145 [facility] Comment on above: Performed By: #### T SH, LIPID, T4, CMP #### [facility] [address] [place] [address] Dr. Chucho Mayberry Urea nitrogen [Mass/Vol] 21.0 mg/dL Critically high 7.0-18.0 [facility] Comment on above: Performed By: #### T SH, LIPID, T4, CMP #### [facility] [address] [place], [place] [address] Dr. Chucho Mayberry Urea nitrogen/Creatinine [Mass ratio] 17.9 mg/mg Normal [facility] Comment on above: Performed By: #### T SH, LIPID, T4, CMP #### [facility] [address] [place], [place] [address] Dr. Chucho Mayberry T4on 08-12-2021 T4 [Mass/Vol] 7.50 ug/dL Normal 4.50-12.10 [facility] Comment on above: Performed By: #### T SH, LIPID, T4, CMP #### [facility] [address] [address] [address] Chucho Mayberry TSHon 08-12-2021 TSH 3.932 uIU/mL Critically high 0.358-3.740 [facility] Comment on above: Performed By: #### T SH, LIPID, T4, CMP #### [facility] [address] [address] [address] Chucho Mayberry Vital Signs Date Time Vital Sign Value Performing Clinician Facility 12-24-2023 [id number] Body height 182.88 cm [facility] 12-24-2023 10:26-0500 Body mass index (BMI) [Ratio] 26.7 kg/m2 [facility] 12-24-2023 10:26-0500 Body temperature 99.1 [degF] [facility] 12-24-2023 10:26-050 Body weight 89.52 kg [facility] 12-24-2023 10:26-0500 Diastolic blood pressure 62 mm[Hg] [facility] 12-24-2023 10:26-0500 Heart rate 61 /min [facility] 12-24-2023 10:26-0500 SaO2% (BldA) [Mass fraction] 95 % [facility] 12-24-2023 10:26-0500 Systolic blood pressure 98 mm[Hg] [facility] 08-05-2023 08:25-0400 Body height 182.88 cm [facility] 08-05-2023 08:25-0400 Body mass index (BMI) [Ratio] 26.8 kg/m2 [facility] 08-05-2023 08:25-0400 Body weight 89.81 kg [facility] 08-05-2023 08:25-0400 Diastolic blood pressure 79 mm[Hg] [facility] 08-05-2023 08:25-0400 Heart rate 41 /min [facility] 08-05-2023 08:25-0400 Systolic blood pressure 132 mm[Hg] [facility] 04-13-2023 13:55-0500 Blood Pressure Location PRICILLA BRADLY [facility] 04-13-2023 13:55-0500 Diastolic blood pressure 79 mm[Hg] PRICILLA BRADLY [facility] 04-13-2023 13:55-0500 Heart rate 54 /min PRICILLA BRADLY [facility] 04-13-2023 13:55-0500 Respiratory rate 16 /min PRICILLA BRADLY [facility] 04-13-2023 13:55-0500 Systolic blood pressure 128 mm[Hg] PRICILLA BRADLY [facility] 02-16-2023 14:51-0500 Blood Pressure Location PRICILLA BRADLY [facility] 02-16-2023 14:51-0500 Diastolic blood pressure 78 mm[Hg] PRICILLA BRADLY [facility] 02-16-2023 14:51-0500 Heart rate 82 /min PRICILLA BRADLY [facility] 01-02-2024 14:51-0500 Systolic blood pressure 118 mm[Hg] PRICILLA BRADLY [facility] 01-08-2023 08:37-0500 Blood Pressure Location Jesse COVARRUBIAS [facility] 01-08-2023 08:37-0500 Body temperature 97.52 [degF] Jesse COVARRUBIAS [facility] 01-08-2023 08:37-0500 Diastolic blood pressure 82 mm[Hg] Jesse COVARRUBIAS [facility] 01-08-2023 08:37-0500 Heart rate 78 /min Jesse COVARRUBIAS [facility] 01-08-2023 08:37-0500 Systolic blood pressure 124 mm[Hg] Jesse COVARRUBIAS [facility] 12-22-2022 13:37-0500 Blood Pressure Location PRICILLA CASTANEDARY [facility] 12-22-2022 13:37-0500 Diastolic blood pressure 79 mm[Hg] PRICILLA BRADLY [facility] 12-22-2022 13:37-0500 Heart rate 80 /min PRICILLA BRADLY [facility] 12-22-2022 13:37-0500 Respiratory rate 16 /min PRICILLA BRADLY [facility] 12-22-2022 13:37-0500 Systolic blood pressure 128 mm[Hg] PRICILLA BRADLY [facility] Encounters Encounter Date Encounter Type Care Provider Facility Start: 05-18-2024 End: 05-18-2024 Bamboo flowsheet Sally A Jeremy CCC-A Work Phone: [facility] Start: 05-18-2024 End: 05-18-2024 Bamboo flowsheet Sally A Jeremy CCC-A Work Phone: [facility] Start: 05-18-2024 End: 05-18-2024 Clinical Support Sally A Jeremy CCC-A Work Phone: [facility] Comment on above: Asymmetrical sensori neural hearing loss (Primary Dx) Start: 05-18-2024 End: 05-18-2024 ambulatory SALLY A JEREMY Not Available Start: 04-26-2024 End: 04-26-2024 ambulatory SALLY A JEREMY Not Available Start: 04-12-2024 End: 04-12-2024 Clinical Support Sally A Jeremy CCC-A Work Phone: [facility] Comment on above: Asymmetrical sensori neural hearing loss (Primary Dx) Start: 04-12-2024 End: 04-12-2024 ambulatory SALLY A JEREMY Not Available Start: 04-12-2024 End: 04-12-2024 Bamboo flowsheet Sally A Jeremy CCC-A Work Phone: [facility] Start: 04-12-2024 End: 04-12-2024 Bamboo flowsheet Sally A Jeremy CCC-A Work Phone: [facility] Start: 03-24-2024 End: 04-12-2024 Telephone encounter Sally A Jeremy CCC-A Work Phone: [facility] Start: 03-22-2024 End: 03-22-2024 Bamboo flowsheet Sally A Jeremy CCC-A Work Phone: [facility] Start: 03-22-2024 End: 03-22-2024 Bamboo flowsheet Sally A Jeremy CCC-A Work Phone: [facility] Start: 03-22-2024 End: 03-22-2024 Clinical Support Sally Spencer CCC-A Work Phone: [facility] Comment on above: Asymmetrical sensori neural hearing loss (Primary Dx) Start: 03-04-2024 End: 03-10-2024 Telephone encounter Sally Spencer CCC-A Work Phone: [facility] Comment on above: Ordered wrong techno logy Start: 02-24-2024 End: 02-24-2024 Bamboo flowsheet Sally Spencer CCC-A Work Phone: [facility] Start: 02-24-2024 End: 02-24-2024 Bamboo flowsheet Salyl Spencer CCC-A Work Phone: [facility] Start: 02-24-2024 End: 02-24-2024 Clinical Support Sally Spencer CCC-A Work Phone: [facility] Comment on above: Asymmetrical sensori neural hearing loss (Primary Dx); Tinnitus, left Start: 12-24-2023 End: 12-24-2023 ambulatory [facility] Work Phone: Start: 12-24-2023 End: 12-24-2023 Patient encounter procedure Pending Sale To [facility] Work Phone: Start: 11-30-2023 End: 11-30-2023 Bamboo flowsheet Ashleigh Arguello MD Work Phone: [facility] Start: 11-30-2023 End: 11-30-2023 Bamboo flowsblessing Arguello MD Work Phone: [facility] Start: 11-30-2023 End: 11-30-2023 Office outpatient visit 15 minutes Ashleigh Arguello MD Work Phone: [facility] Comment on above: Seborrheic keratosis (Primary Dx); Lentigines; Melanocytic nevus of trunk; Capillary angioma; Seborrheic keratosis, inflamed; Actinic keratosis; Neoplasm of unspecified behavior of bone, soft tissue, and skin; Bacterial folliculitis; History of basal cell carcinoma Start: 11-30-2023 End: 11-30-2023 ambulatory ASHLEIGH ARGUELLO Not Available Start: 11-05-2023 Non-patient / Non-visit Pending [facility] To [facility] Work Phone: Start: 08-11-2023 Patient encounter status [facility] Start: 08-05-2023 End: 08-05-2023 ambulatory [facility] Work Phone: Start: 08-05-2023 End: 08-05-2023 Patient encounter procedure [facility] Work Phone: Start: 04-13-2023 ambulatory PRICILLA Browni ty:[facility] Start: 04-13-2023 End: 04-13-2023 Patient encounter procedure PRICILLA ABDULLAHI [facility] Start: 02-16-2023 End: 02-17-2023 ambulatory PRICILAL ABDULLAHI Facility:[facility] Start: 02-16-2023 End: 02-16-2023 Patient encounter procedure PRICILLA ABDULLAHI [facility] Start: 02-12-2023 End: 02-13-2023 ambulatory Jesse COVARRUBIAS Facility:[facility] Start: 02-12-2023 End: 02-12-2023 Patient encounter procedure Jesse COVARRUBIAS [facility] Start: 02-11-2023 End: 02-12-2023 ambulatory Jesse COVARRUBIAS Facility:[facility] Start: 02-11-2023 End: 02-11-2023 Patient encounter procedure Jesse COVARRUBIAS [facility] Start: 01-08-2023 End: 01-09-2023 ambulatory Jesse COVARRUBIAS Facility:[facility] Start: 01-08-2023 End: 01-08-2023 Patient encounter procedure Jesse COVARRUBIAS [facility] Start: 12-22-2022 End: 12-23-2022 ambulatory PRICILLA Boyd ABDULLAHI Facility:[facility] Start: 12-22-2022 End: 12-22-2022 Patient encounter procedure PRICILLA ABDULLAHI [facility] Start: 10-20-2022 ambulatory Jesse SATISH Facility:[facility] Start: 08-12-2021 End: 08-13-[address] LUCIANA COOPER Facility: Start: 12-17-2020 End: 12-17-2020 ambulatory Areli Valverde Other [employer] Other Start: 12-17-2020 Office outpatient vi sit 10 minutes [facility] Start: 03-30-2018 End: 03-30-2018 Refill Gabriela Leal Work Phone: DEPARTMENT OF OTOLARYNGOLOGY Comment [...] Start: 02-14-2016 End: 02-14-2016 Telephone encounter Rayne Lindy Department of Otolaryngology Comment on above: Medical Records Procedures Date Procedure Procedure Detail Performing Clinician Start: 02-24-2024 AUDITORY FUNCTION TESTS Sally Spencer CCC-A Work Phone: Start: 11-30-2023 End: 11-30-2023 SKIN / NAIL BIOPSY Ashleigh Arguello MD Work Phone: Start: 11-30-2023 End: 11-30-2023 CRYOTHERAPY SKIN LESION Ashleigh Arguello MD Work Phone: Start: 02-11-2023 Transurethral insert ion of prostatic urethral lift implant PRICILLA ABDULLAHI Comment on above: 6 implants Start: 01-08-2023 Transurethral cystoscopy Jesse SATISH Start: 08-12-[address] DEISY Lopes [place] Comment on above: Performed By: #### P SAD #### [facility] [address] [place] [address] Dr. Chucho Mayberry Arthroscopy of knee PRICILLA ABDULLAHI Arthroscopy of shoulder MONY ABDULLAHI Colonoscopy PRICILLA ABDULLAHI Tonsillectomy PRICILLA ABDULLAHI Ultrasonography by transrectal approach Jesse COVARRUBIAS Plan of Treatment Date Care Activity Detail Author Start: 12-19-2024 End: 12-19-2024 Patient encounter procedure 12/19/2024 8:35 AM EST Office Visit [facility] [address] [place] [address] Ashleigh Arguello MD [address] [place] [address] [facility] Start: 10-16-2024 Influenza vaccination Influenza Vaccine (Season Ended) [facility] Start: 05-18-2024 End: 05-18-2024 Clinical Support 05/18/2024 11:15 AM EDT Clinical Support [facility] [address] [place] [phone] Sally Spencer, CCC-A [address] [place] [address] Arrived [facility] Comment on above: Arrived Start: 04-12-2024 End: 04-12-2024 Clinical Support 04/12/2024 3:00 PM EST Clinical Support [facility] [address] [place] [phone] Sally Spencer, CCC-A [address] [place] [address] Arrived [facility] Comment on above: Arrived Start: 03-22-2024 End: 03-22-2024 Clinical Support [facility] Comment on above: Arrived Start: 03-08-2024 End: 03-08-2024 Clinical Support 03/08/2024 11:15 AM EST Clinical Support [facility] [address] [place] [address] Sally Spencer, CCC-A [address] [place] [address] [facility] Start: 02-24-2024 End: 02-24-2024 Clinical Support 02/24/2024 9:45 AM EST Clinical Support [facility] [address] [place] [id number] Sally Spencer, CCC-A [address] [place] [address] Arrived [facility] Comment on above: Arrived Start: 11-30-2023 End: 11-30-2023 Patient encounter procedure 11/30/2023 8:35 AM EDT Office Visit [facility] [address] [place] [address] Ashleigh Arguello MD [address] [place] [address] Arrived [facility] Comment on above: Arrived Start: 10-17-2023 Influenza vaccination Influenza Vaccine (#1) [facility] Start: 09-14-2020 Pneumococcal Vaccine: 65+ Years (1 of 1 - PCV) Pneumococcal Vaccine: 65+ Years (1 of 1 - PCV) [facility] Start: 10-16-2018 Influenza vaccination INFLUENZA VACCINE (#1) [facility] Start: 10-16-2017 Influenza vaccination INFLUENZA VACCINE (#1) [facility] Work Phone: Start: 09-14-2005 Colonoscopy COLON CANCER SCREENING DISCUSSION [facility] Start: 09-14-2005 Prostate specific antigen measurement PROSTATE CANCER SCREENING DISCUSSION [facility] Work Phone: Start: 09-14-2005 Protein mass conc COLON CANCER SCREENING DISCUSSION [facility] Work Phone: Start: 09-14-2005 Zoster vaccine hzv live for subcutaneous use ZOSTER (SHINGLES) VACCINE (1 of 2) [facility] Start: 1995 Fasting lipid profile LIPID SCREENING [facility] Work Phone: Start: 09-14-1974 Third diphtheria, tetanus and acellular pertussis (DTaP) vaccination TDAP (ADULT) [facility] [facility] Work Phone: Start: 09-14-1973 Tetanus vaccination TETANUS [facility] Work Phone: Start: 09-14-1968 HIV screening HIV SCREENING DISCUSSION [facility] Work Phone: Start: 1955 Hepatitis C antibody, confirmatory test HEPATITIS C VIRUS SCREENING [facility] Work Phone: Start: 1955 Potassium molar conc POTASSIUM [facility] Work Phone: Start: 1955 Screening for malignant neoplasm of colon [facility] Start: 1955 Thyrotropin Qn TSH [facility] Work Phone: Comprehensive metabo lic 2000 panel - Serum or Plasma [facility] Dermatopathology exam Dermatopat hology exam Pathology and Cytology Timed Neoplasm of unspecified behavior of bone, soft tissue, and skin Release Upon Ordering for 1 Occurrences starting 11/30/2023 [facility] Work Phone: Comment on above: Release Upon Ordering for 1 Occurrences starting 11/30/2023 [facility] Immunizations Immunization Date Immunization Notes Care Provider Rossi driver 05-22-2020 SARS-CoV-2 (COVID-19 ) mRNA BNT-162b2 vax PRICILLA CASTANEDARY [facility] 05-01-2020 SARS-CoV-2 (COVID-19 ) mRNA BNT-162b2 vax PRICILLA CASTANEDARY [facility] 01-16-2016 Dexamethasone Inj Gabriela Leal U [facility] Payers Date Payer Category Payer Medicare [id number] 2020 Medicare MEDICARE [id number] 5 2020 Private Health Insurance [id number] .[id number] 5 2020 Unknown [id number] 2016 Private Health Insurance [facility] GENERIC xxxxxxxx 2016-Present [id number] .[id number] 1959 Medicare [id number] 2.16.840.1.880515.19 1959 Unknown [id number] 2.16.840.1.824255.19 1955 Unknown [id number] 2.16.840.1.238974.3.579 .2.593 1955 Unknown [id number] 2.16.840.1.900617.3.579 .2.727 1955 Unknown [id number] 2.16.840.1.535463.3.579 .2.727 1955 Unknown [id number] 2.16.840.1.776349.3.579 .2.727 1955 Unknown [id number] 2.16.840.1.940170.3.579 .2.727 1955 Unknown [id number] 2.16.840.1.794695.3.579 .2.727 1955 Unknown [id number] 2.16.840.1.849123.3.579 .2.727 1955 Unknown [id number] 2.16.840.1.168084.3.579 .2.727 1955 Unknown [id number] 2.16.840.1.937142.3.579 .2.727 1955 Unknown [id number] 2.16.840.1.349790.3.579 .2.727 1955 Unknown [id number] 2.16.840.1.438730.3.579 .2.1259 1955 Unknown [id number] 2.16.840.1.315466.3.579 .2.9 1955 Unknown [id number] 2.16.840.1.542509.3.579 .2.9 1955 Unknown [id number] 2.16.840.1.307710.3.579 .2.9 1955 Unknown [id number] 2.16.840.1.381743.3.579 .2.9 1955 Unknown [id number] 2.16.840.1.433299.3.579 .2.125 Medicare Medicare [id number] Self-pay Self Pay [id number] Unknown [facility] [id number] Unknown [facility] [id number] Social History Date Type Detail Facility Start: 09-17-2016 End: 11-24-2022 Tobacco smoking status NHIS Never smoker [facility] Sex Assigned At Not on file [facility] Work Phone: Start: 12-08-2022 End: 11-30-2023 Sex Assigned At [facility] Tobacco smoking status Never [facility] Start: 1955 Sex Assigned At Male [facility] Start: 11-24-2022 Tobacco use and exposure Smokeless tobacco non-user [facility] Start: 12-08-2022 End: 11-30-2023 Alcoholic beverage intake Lifetime non-drinker (finding) [facility] Start: 12-08-2022 End: 11-30-2023 History of Social function [facility] Start: 12-08-2022 Alcohol Comment caffeine >4 cups/day [facility] Start: 11-24-2022 Gender identity Identifies as male gender (finding) [facility] Start: 11-24-2022 Sexual orientation Heterosexual (finding) [facility] Start: 12-24-2023 Sex Male (finding) [facility] Functional Status Date Assessment Result Facility 04-13-2023 Functional Status N/A [facility] 02-16-2023 Functional Status N/A [facility] 02-11-2023 Functional Status N/A [facility] 01-08-2023 Functional Status N/A [facility] 12-22-2022 Functional Status N/A [facility] Clinical Notes 12-17-2020 to 05-18-2024 KATHRYN Gee - 05/18/2024 11:15 AM EDTTelephone Encounter - KATHRYN Gee - 04/12/2024 5:04 PM ESTTelephone Encounter - KATHRYN Gee - 04/12/2024 5:04 PM EST Note Date & Type Note Facility 05-18-2024 History of Present illness Narrative History: Pt is here to decrease sensitivity of the double tap. The hearing aid is so sensitive that chewing changes the settings. Overall pt is very pleased with the aid and with the rechargeable bellows charger assembler. He is able to use the bellows charger assembler for 8 days before needing to recharge. Hearing Aid Check: Read aids in back [place] and changed tap sensitivity from more to default. Pt started eating a granola bar and indicated the sensitivity was much better. He was able to chew without the settings change. He is pleased and will return prn. documented in this encounter [facility] 04-12-2024 Telephone encounter Note Saw pt today and resolved hearing aid issues. Also received permission from [employer] to exchange his bellows charger assembler [facility] Work Phone: 04-12-2024 Miscellaneous Notes Saw pt today and resolved hearing aid issues. Also received permission from [employer] to exchange his bellows charger assembler Called [employer] and left VM for Malcolm Pt wants upgraded bellows charger assembler. Cost to upgrade = $50. Pt is OK. Called [employer] and was told to email Malcolm Varma. Emailed Malcolm and he is out of the office until April 03. Send [employer] message to pt informing him of above. documented in this encounter [facility] 04-12-2024 History of Present illness Narrative Hearing Aid Check: Pt would like the auditorium program be his default program. He also would like the auditorium program start 1 step higher. He uses the Edge mode with his micah but would like to be able to activate it manually with the hearing aid. He also would like to be able to power off the aid if possible. He also has a sore on his antitragus from the hearing aid. The aid needs to be remade. Moved Auditorium to slot #1 and increased gain x 1. Replaced telephone with personal program (slot #4). Unable to delete the personal program. Changed long press from mute to sleep mode. Sleep mode will use much less energy. The aid could be in sleep mode for 2-3 days before losing charge. Activated double tap. It will now activate Edge mode. Increased sensitivity and verified feature works. Initial double tap activates Edge Mode. 2nd double tap will put pt back to the default program (Auditorium.) Spoke to customer order clerk - she will allow me to return pt's bellows charger assembler and only charge the upgrade charge of 21.00. Uncertain if there will be a shipping charge. Will charge pt only our cost for the bellows charger assembler. She gave me case # for the bellows charger assembler return: [id number]. I also have to write and [place] [employer] on the form. Ear impression of left ear taken without incident. Sore area marked on impression. Will read aid in [place] to store settings before sending aid in for remake. Will call pt when the aid and new bellows charger assembler arrive. Pt stated he probably will wait to pick aid up in [place] but I will still be able to restore settings in [place] if necessary. documented in this encounter [facility] 04-05-2024 Telephone encounter Note Called [employer] and left VM for Malcolm [facility] 03-24-2024 Telephone encounter Note Pt wants upgraded bellows charger assembler. Cost to upgrade = $50. Pt is OK. Called [employer] and was told to email Malcolm Varma. Emailed Malcolm and he is out of the office until April 03. Send [employer] message to pt informing him of above. [facility] 03-22-2024 History of Present illness Narrative Hearing Aid Fitting: Pt is here today for new hearing aid fitting. Pt was fit with a [employer] AI 24 ITC-R aid for his left ear. Pt is experienced user (STEFANO aid). Fit is good with no audible feedback. Pt is able to insert and remove the aid with without difficulty. Pt taught how to use the bellows charger assembler and how to perform basic cleaning/maintenance including changing the wax guard. Aid paired to phone and streaming was turned off. Pt was also shown basic features of the Heating Unit Mechanic's micah. Pt is pleased and prefers to return prn. Pt received 20% discount and paid $2600 today for aid. documented in this encounter [facility] 03-04-2024 Miscellaneous Notes Received invoice for hearing aid aid I ordered Advanced technology (AI20). Pt wanted Premium technology (AI24). Called pt and apologized for error. Will call [facility] and request appropriate technology. Pt has appointment 03-22-24. Will fit pt at that appointment. Will need to send AI20 back to [facility]. documented in this encounter [facility] 03-04-2024 Telephone encounter Note Received invoice for hearing aid aid I ordered Advanced technology (AI20). Pt wanted Premium technology (AI24). Called pt and apologized for error. Will call [facility] and request appropriate technology. Pt has appointment 03-22-24. Will fit pt at that appointment. Will need to send AI20 back to [facility]. 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 Right ear is essentially normal. Pt purchased [employer]ia Pure 5PX aid for his left ear in June 2016. Pt thinks he struggles with hearing his 's voice. She has to get his attention first or he does not hear well. Pt also has history of constant left tinnitus. Wearing the hearing aid helps to reduce his tinnitus Otoscopic Exam: Ear canal clear and TM intact AU Pure Tone Audiometry Right Ear: Mild sensorineural hearing loss at 4K Hz Left Ear: Moderate to severe sensorineural hearing loss Speech Audiometry Right SRT = 10 dB and word discrimination score at 55 dBHL = 100% Left SRT = 65 dB (masked) and word discrimination score at 80 dBHL (masked) = 88% Tympanometry Right Ear: Type A tympanogram Left Ear: Type A tympanogram Impressions: Hearing acuity is stable in the right ear and low frequencies have improved in the left ear since last evaluation. Hearing Aid Discussion: Pt is interested in a custom rechargeable aid for his left ear. After a lengthy discussion, pt decided to purchase a premium [employer] rechargeable ITC. Ear impression taken of left ear without incident. Pt scheduled for 2 appointments in [place] - 03/08 and 03/15. Pt prefers 03/08 if the hearing aid arrives in time. documented in this encounter [facility] 11-30-2023 History of Present illness Narrative Images [...] Left Posterior Neck (2), Right Frontal Scalp [place] and brown stuck on verrucous scaly papule [...] limited to risks of scarring, darker or intravenous therapy nurse pigmentary changes, recurrence, incomplete removal and infection. [...] limited to risks of scarring, darker or intravenous therapy nurse pigmentary changes, recurrence, incomplete removal and infection. [...] year, skin check documented in this encounter [facility] 04-13-2023 Hospital Discharge instructions Patient Education 04/13/2023 [...] urethra. Follow these instructions at home: Take ggxb-mwk-nqvqhnx and prescription medicines only as told by [...] Document Reviewed: 08/20/2021 Elsevier Patient Education 2022 BigTip. Follow Up Care 02/16/2023 16:00:07 With:PRICILLA ABDULLAHI PA-C, URL Address: [address] [place] [address] When: Unknown [facility] 02-16-2023 Hospital Discharge instructions Patient Education [...] urethra. Follow these instructions at home: Take xmcw-zpq-wlqmvvs and prescription medicines only as told by [...] provider. Document Revised: 08/20/2021 Document Reviewed: 08/20/2021 [employer] Patient Education 2022 BigTip. Follow Up Care 02/11/2023 10:14:12 With:PRICILLA ABDULLAHI PA-C, URL Address: [address] [place] [address] [phone] When: Unknown Comments:6 wks [facility] 02-11-2023 Note [id number] [facility] 02-11-2023 Hospital Discharge instructions Patient Education 02/11/2023 09:25:49 Lue - Urolift Post-Op Instructions (Custom) [facility] [place] [place] Post-Operative Instructions for UroLift After your [...] Up Care 01/08/2023 09:55:03 With:Jesse COVARRUBIAS Address: [facility] [employer] [address] [place] [id number] Business (1) When:1 to 2 weeks Comments:Call for followup appointment to remove the catheter. Stay on your Flomax (tamsulosin) for now. You may be seeing one of our nurse practitioners or physician assistants. [facility] 12-23-2022 Hospital Discharge instructions Follow Up Care 12/23/2022 10:30:34 With:SATISH TIAN, Jesse Valdez, URL Address: [facility] Flare [address] [place] [address]- When: Unknown Comments:Sched UroLift [facility] [place] 12-22-2022 Note Chief Complaint Referral *BPH HPI Staff Evaluation requested by Dr Kalen Lancaster due to frequency & nocturia. Pt [...] Was experiencing frequency. Started Tamsulosin & Saw Plato. Has been taking for a few yrs. [...] FITO: benign. no asymmetry, induration, nodules. Assessment/Plan Wesly is a 67 yo M new pt referred by Dr. Kalen Lancaster for frequency and nocturia. CMP 08/12/21 [...] vs oral med. -Cont Tamsulosin and mary figueroao. Will dc in future. -Will schedule cystoscopy/TRUS. The risks and benefits for cystoscopy have been discussed. The risks include bleeding, infection, and irritation of the bladder and urinary channel, among others. The patient, after being informed of procedural details and after questions have been answered, wishes to proceed. Full informed consent has been obtained. Will order Local anesthesia. Ordered: [id number] Measure Post Void residual urine and/or bladder capacity by US- non-imaging E&M of New Patient Moderate 45-59 Min [id number] 2. Prostate cancer screening (Z12.5: Encounter for screening for malignant neoplasm of prostate) PSA 09/21/19 - 1.55 07/25/20 - 2.02 08/12/21 - 2.00 08/06/22 - 2.43 Discussed PSA level which remains low overall but is trending up slightly over the past few years. PCP monitors. Ordered: E&M of New Patient Moderate 45-59 Min [id number] Orders: Urnls Dip Stick Auto w/o Microscopy POC [id number] Follow-up With When Contact Information BRADLY THOMPSON, PRICILLA Nix, URL [address] [place] [address] [phone] Additional Instructions: sched cysto/TRUS Patient Education Cystoscopy Benign Prostatic Hyperplasia Documentation recorded by the consuelo Hickman accurately reflects the services(s) I performed and decisions made by me. Authenticated by Pricilla Abdullahi PA-C on 12/22/2022 14:23:48. IDayami, personally scribed for Pricilla Adbullahi PA-C on 12/22/2022 14:07:59. . Problem List/Past [...] Vaccine Date Statu (more content not included)... [facility] Comment on above: Result Comment: Elec tronically [...] including vitamins, herbs, eye drops, creams, and imjn-ckm-qyfddpw medicines. Any problems you or family members [...] provider tells you to take them. Taking elgl-tzj-qhdlyka medicines, vitamins, herbs, and supplements. Tests You [...] Follow these instructions at home: Medicines Take cvsf-hwz-hlwzhgv and prescription medicines only as told by [...] provider. Document Revised: 10/15/2021 Document Reviewed: 09/13/2020 [employer] Patient Education 2022 BigTip. 12/22/2022 14:01:32 Benign Prostatic Hyperplasia Benign Prostatic [...] urethra. Follow these instructions at home: Take htnd-agp-peqqdqb and prescription medicines only as told by [...] provider. Document Revised: 08/20/2021 Document Reviewed: 08/20/2021 [employer] Patient Education 2022 BigTip. Follow Up Care 10/20/2022 09:15:26 With:BRADLY THOMPSON, PRICILLA Nix, URL Address: [address] [place] [address] [place] [address] [phone] When: Unknown Comments:sched cysto/TRUS [facility] 12-22-2022 Note Urology Cystoscopy Cystoscopy is [...] including vitamins, herbs, eye drops, creams, and xyed-ahu-nojnoyh medicines. ? Any problems you or family [...] tells you to take them. ? Taking axac-qdz-oxmjyrp medicines, vitamins, herbs, and supplements. Tests You [...] these instructions at home: Medicines ? Take uuet-wml-fkudgnt and prescription medicines only as told by [...] the department th (more content not included)... 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) [employer] Other Evaluation + Plan note No data available for this section [facility] evaluation + Plan note Future Appointments Appointment Date:02/04/2023 09:30:00 AM Scheduled Provider: Location:[facility] Appointment Type:Urology CALL PAT FT Appointment Date:02/11/2023 09:15:00 AM Scheduled Provider: Location:[facility] Appointment Type:Urology FT [facility] [place] Evaluation + Plan note Future Appointments Appointment Date:02/16/2023 02:40:00 PM Scheduled Provider:PRICILLA ABDULLAHI PA-C Location:[facility] Future Appointments Appointment Date:04/13/2023 02:00:00 PM Scheduled Provider:PRICILLA ABDULLAHI PA-C Location:[facility] Appointment Type:URO Office Visit [facility] evaluation note* Diagnosis Onset Date Resolution Status Hypercholesterolemia acute Hypothyroidism acute Screening PSA (prostate specific antigen) acute [facility] Work Phone: Evaluation note* Diagnosis Seborrheic keratosis- [...] of skin [facility] Diagnosis Onset Date Resolution Status Admit Date COVID-19 acute December 24, 2023 10:20am [facility] Work Phone: Evaluation note* Diagnosis Asymmetrical sensorineural hearing loss- Primary Sensorineural hearing loss, asymmetrical Tinnitus, left [facility] Diagnosis Asymmetrical sensorineural hearing loss- Primary Sensorineural hearing loss, asymmetrical [facility] N[facility]ative - Reported* Type Description Date Medical History hypercholesterolemia 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 Surgical History Left knee arthroscopy Surgical History shoulder arthroscopy LEFT [employer] Other Hospital Discharge instructions No data available for this section [facility] [place] Progress note No data available for this section [facility] Assessments Diagnosis Meniere's disease of left ear Meniere's disease, unspecified Diagnosis Meniere's disease of left ear Meniere's disease, unspecified Summary Purpose Family History No Family History Records Found Relationship Condition Age at Onset Recorded Date/T krystina Not Specified No pertinent family history Unknown father Unknown Not Specified Unknown Relationship Condition Age at Onset Recorded Date/T krystina Not Specified No pertinent family history Unknown father Unknown mother Unknown Advance Directives No Advanced Directives Records Found Advance Directive Response Recorded Date/ Time Advance Directives No August 04 8:16am Advance Directive Response Recorded Date/ Time Advance Directives No August 04 7:16am Chief Complaint and Reason for Visit Chief Complaint wellness Reason for Visit Hypercholesterolemia Hypothyroidism Screening PSA (prostate specific antigen) Chief Complaint Admit Date Sore Throat/Weak December 24, 2023 1 0:20am Reason for Visit Admit Date COVID-19 December 24, 2023 1 0:20am Additional Source Comments Reason for Visit (unrecogniz ed section and content) Reason Comments Medication Refill Reason Comments Medical Records Reason Comments Skin Check Reason Onset Date Comments Ordered wrong technology 03/04/2024 (unrecognized sect ion and content) No Status Records FoundNo Status Records FoundNo Status Records Found INFORMATION SOURCE (unrecogn ized section and content) DATE CREATED AUTHOR 08/16/2021 [facility] DATE CREATED AUTHOR 'S ORGANIZ ATION 04/03/2023 [facility] DATE CREATED AUTHOR AUTHOR'S MATT ATCHRISTINA 05/21/2024 [facility] EPIC Patient Care team informatio n (unrecognized section and content) Team Status: Active Member Role Status Dates Kalen Lancaster MD Primary Care Provider Active Team Status: Active Member Role Status Dates Kalen Lancaster MD Primary Care Provide r, Attending Provider Active Start: November 05, 2023 Team Status: Inactive Member Role Status Dates Kalen Lancaster MD Primary Care Provider Active Start: December 24, 2023 End: December 24, 2023 Pricilla Cantor APRN FENCE MAKING MACHINE OPERATOR-C Attending Provider Active Start: December 24, 2023 End: December 24, 2023 Team Status: Inactive Member Role Status Dates Kalen Lancaster MD Primary Care Provide r, Attending Provider Active Start: August 05, 2023 End: August 05, 2023 Service Center Manager Relationship Specialty Start Date End Date Kalen Lancaster MD [address] [place] [id number] PCP - General 02/18/24 Service Center Manager Relationship Specialty Start Date End Date Kalen Lancaster MD [address] [place] [address] PCP - General 02/18/24 Service Center Manager Relationship Specialty Start Date End Date Kalen Lancaster MD [address] [place] [id number] PCP - General 02/18/24 Service Center Manager Relationship Specialty Start Date End Date Kalen Lancaster MD [address] [place] [address] PCP - General 02/18/24 Goals (unrecognized section and content) Goals may [...] BE BASED ON THE PRIMARY CLINICAL RECORDS. [facility]. provides no warranty or guarantee of the accuracy or completeness of information in this document.
[2024-08-03 08:31] LABS: Basophils Percent Auto 0.8 % (0.2-2.0); Eosinophils Absolute Auto 0.2 10^3/uL (0.0-0.7); Eosinophils Percent Auto 4.4 % (0.9-7.0); Hemoglobin 12.5 g/dL (14.0-18.0); Lymphocytes Absolute Auto 1.2 10^3/uL (1.2-3.8); Lymphocytes Percent Auto 31.9 % (20.5-60.0); Mean Corpuscular HGB Conc 32.9 g/dL (29.9-35.2); Mean Corpuscular Hemoglobin 29.1 pg (25.9-34.0); Mean Corpuscular Volume 88.6 fL (80.0-94.0); Mean Platelet Volume 9.9 fL (9.5-13.5); Monocytes Absolute Auto 0.4 10^3/uL (0.3-0.8); Monocytes Percent Auto 10.6 % (1.7-12.0); Neutrophils Percent Auto 52.3 % (43.0-75.0); Platelet Count 177 10^3/uL (150-450); Red Blood Count 4.29 10^6/uL (4.70-6.10); Red Cell Distribution Width 12.9 % (11.0-15.0); White Blood Count 3.9 10^3/uL (4.0-11.0)
[2024-08-03 09:07] LABS: Alanine Aminotransferase 22 U/L (16-63); Albumin Globulin Ratio 1.1; Albumin Level 3.4 g/dL (3.4-5.0); Alkaline Phosphatase 83 U/L (46-116); Anion Gap 10.7; Aspartate Amino Transferase 21 U/L (15-37); BUN Creatinine Ratio 18.9; Bilirubin Total 0.7 mg/dL (0.2-1.0); Calcium 8.5 mg/dL (8.5-10.1); Carbon Dioxide 28.7 mmol/L (21.0-32.0); Chloride 106 mmol/L (98-107); Chol HDL Ratio 2.5; Cholesterol 160 mg/dL (<=200); Estimated GFR (African America >60 (>=60 mL/min/1.73m^2); Estimated GFR (Non-African Ame >60 (>=60 mL/min/1.73m^2); Globulin 3.1 g/dL; Glucose 97 mg/dL (74-106); HDL Cholesterol 64 mg/dL (40-60); Potassium 4.4 mmol/L (3.5-5.1); Sodium 141 mmol/L (136-145); Thyroid Stimulating Hormone 2.193 uIU/mL (0.358-3.740); Total Protein 6.5 g/dL (6.4-8.2); Triglycerides 70 mg/dL (<=150)
[2024-08-03 10:05] LABS: Prostate Specific Antigen Scrn 2.34 ng/mL (<=4.00)
[2024-08-03 10:14] LABS: Free T4 1.06 ng/dL (0.76-1.46)
[2024-08-03 10:25] LABS: Estimated Average Glucose 123 mg/dL; Glycohemoglobin A1C 5.9 % (4.5-6.2)
== END 2024-08-03 07:59 | disposition home or self-care (01) ==
LOC: LAB 08:00
PROVIDERS: PCP Family Medicine; Visit Provider Family Medicine
DX: Z00.00 Encounter for general adult medical examination without abnormal findings (principal); E03.9 Hypothyroidism, unspecified; E78.00 Pure hypercholesterolemia, unspecified; Z12.5 Encounter for screening for malignant neoplasm of prostate
CPT/HCPCS: 36415; 80053; 80061; 83036; 84439; 84443; 85025; G0103